=== PATIENT | female | born 1960 | race Caucasian/White ===

== ENCOUNTER 2023-07-24 10:25 | Outpatient (OUT) | payer OTHER, SELFPAY ==
--- NOTE | 2023-07-24 10:26 | MM_ITS ---
Patient Name GURMEET ALMONTE MR# Age Sex Date Time [id number] F 07/24/2023 10:[address] Of [address] LOVE SANTANA RADIOLOGY REPORT PROCEDURE: MM TOMOSYNTHESIS SCREENING BI COMPARISON: MG MAMM SCREEN 3D ERA CAD, 07/18/2022. MG MAMM SCREEN 3D ERA CAD, 06/15/2021. MG MAMM SCREEN ERA W CAD, 04/26/2020. MG MAMM ERA SCRN W CAD DIG, 09/14/2013. INDICATIONS: Screening Calculator Name NCI Breast Cancer Risk Assessment Tool 5 Year Breast Cancer Risk 1.60% Lifetime Breast Cancer Risk 6.60% Personal Breast Cancer No Personal Ovarian Cancer No Treatments radiation therapy Family Cancers Mother with lung cancer at age 48. LOCATION: [facility] BREAST COMPOSITION: Scattered areas fibroglandular density. FINDINGS: DIAGNOSTIC CATEGORY 2--BENIGN FINDING: RIGHT BREAST: No significant suspicious finding. This exam includes additional mammographic views for implant evaluation and shows no visible implant abnormality. No significant change has occurred. LEFT BREAST: No significant suspicious finding. This exam includes additional mammographic views for implant evaluation and shows no visible implant abnormality. No significant change has occurred. RECOMMENDATIONS: ROUTINE MAMMOGRAM AND CLINICAL EVALUATION IN 12 MONTHS. PLEASE NOTE: A NORMAL MAMMOGRAM DOES NOT EXCLUDE THE POSSIBILITY OF BREAST CANCER. A CLINICALLY SUSPICIOUS PALPABLE LUMP SHOULD BE BIOPSIED. Dictated by: Mega Kirby M.D. on 07/24/2023 at 13:20 Approved by: Mgea Kirby M.D. on 07/24/2023 at 13:27
--- OUTSIDE RECORDS SUMMARY | 2023-09-03 13:45 | XMS_ITS | CCD ---
Author Name Unknown Address [address] [facility] [address] [place] [address] Organization [facility] Care Team Providers Care Gallery Host Name Role Phone Anatoliy Tamayo DO Una Primary Care Provider Jagjit CLEARY, Shantelle Unavailable Unavailable TIMMIS, DR MOCTEZUMA Admitting Unavailable TIMMIS, DR MOCTEZUMA Attending Unavailable KUNS, DR SHIRLENE Mancera Primary Care Unavailable TIMMIS, DR MOCTEZUMA Admitting Unavailable TIMMIS, DR MOCTEZUMA Attending Unavailable KUNS, DR SHIRLENE Mancera Primary Care Unavailable TIMMIS, DR MOCTEZUMA Consulting Unavailable AGUBOSIM, SATNAM Consulting Unavailable DORKOSKIE, SHANNAN Consulting Unavailable KUNS, DR SHIRLENE Mancera Admitting Unavailable KUNS, DR SHIRLENE Mancera Attending Unavailable KUNS, DR SHIRLENE Mancera Primary Care Unavailable SCALES MOUND, DR SHARONA Lopez Consulting Unavailable KUNS, DR SHIRLENE Mancera Consulting Unavailable TIMMIS, DR MOCTEZUMA Admitting Unavailable TIMMIS, DR MOCTEZUMA Attending Unavailable KUNS, DR SHIRLENE Mancera Primary Care Unavailable TIMMIS, DR MOCTEZUMA Consulting Unavailable Furlong DOAnatoliy Una Primary Care Provider Jagjit CLEARY, Shantelle Unavailable Unavailable FURLONG, ANATOLIY UNA Primary Care Unavailab le SHAWN, KELVIN Referring Unavailable SHAWN, KELVIN Attending Unavailable FURLONG, ANATOLIY UNA Primary Care Unavailab le SHAWN, KELVIN Referring Unavailable FURLONG, ANATOLIY UNA Primary Care Unavailab le SHAWN, KELVIN Attending Unavailable FURLONG, ANATOLIY UNA Primary Care Unavailab le SHAWN, KELVIN Referring Unavailable SHAWN, KELVIN Attending Unavailable FURLONG, ANATOLIY UNA Primary Care Unavailab le SHAWN, KELVIN Referring Unavailable FURLONG, ANATOLIY UNA Primary Care Unavailab le SHAWN, KELVIN Attending Unavailable SHAWN, KELVIN Referring Unavailable FURLONG, ANATOLIY UNA Primary Care Unavailab ramesh KELVIN DE LA FUENTE Attending Unavailable FRANTZLONG, ANATOLIY NEELY Primary Care Unavailab ramesh SHAWN, KELVIN Referring Unavailable FRANTZLONG, ANATOLIY UNA Primary Care Unavailab le SHAWN, KELVIN Referring Unavailable FRANTZLONG, ANATOLIY UNA Primary Care Unavailab le SHAWN, KELVIN Referring Unavailable FRANTZLONG, ANATOLIY NEELY Primary Care Unavailab le SHAWN, KELVIN Referring Unavailable FRANTZLONG, ANATOLIY UNA Primary Care Unavailab KIM Islas Attending Unavailabl marcos DE LA FUENTE, KELVIN Referring Unavailable JAZMINE JOSE ELIAS Jono Attending Unavailable Allergies Allergy Classification Reported Allergen(s) Allergy Type Date of Onset Reaction(s) Facility (20 sources) moxifloxacin; Translations: [MOXIFLOXACIN] Drug Allergy 2 Hives, Angioedema [facility] (2 sources) moxifloxacin Drug Allergy [facility] Repository Medications Completed/Discontinued Medications Medication Drug Class(es) Dates Sig (Normalized) Sig (Original) acetaminophen 325 mg / butalbital 50 mg / caffeine 40 mg / codeine phosphate 30 mg oral capsule (20 sources) Opioid Agonist, Barbiturate, Central Nervous System Stimulant, Methylxanthine take 1 capsule by mouth twice daily Ttizkdjlwk-Knf-Co etaminop-Caf 03-489-02-30 mg per capsule butalbital 50 mg-acetaminophen 325 mg-caffeine 40 mg-codeine 30 mg cap take 1 capsule by mouth twice a day 0 Active Comment on above: butalbital 50 mg-jersey taminophen 325 mg-caffeine 40 mg-codeine 30 mg cap take 1 capsule by mouth twice a day acetaminophen 21.7 mg/ml / HYDROcodone bitartrate 0.5 mg/ml oral solution (17 sources) Opioid Agonist Start: 04-24-2022 End: 08-28-2022 take 10 mL by mouth every six hours as needed for pain HYDROcodone-acetaminophen (HYCET) 7.5-325 mg/15 mL oral liquid Indications: Larynx cancer (HCC) Take 10 mL by mouth every 6 hours as needed for pain. May alternate with anti-inflammatory (motrin, alleve, etc). Take with stool softener to avoid constipation. 280 mL 0 05/31/2022 08/28/2022 Discontinued (Discontinued by Patient) Comment on above: Take 10 mL by mouth every 6 hours as needed for pain. May alternate with anti-inflammatory (motrin, alleve, etc). Take with stool softener to avoid constipation. cholecalciferol 0.05 mg oral capsule (20 sources) Vitamin D take 1 capsule by mouth once daily Cholecalciferol, Vitamin D3, 50 mcg (2,000 unit) cap Vitamin D3 50 mcg (2,000 unit) capsule take 1 capsule by mouth once daily 0 Active Comment on above: Vitamin D3 50 mcg (2 ,000 unit) capsule take 1 capsule by mouth once daily cyclobenzaprine hydrochloride 10 mg oral tablet (20 sources) Muscle Relaxant Start: 01-15-2022 take 1 tablet by mouth once daily at bedtime cyclobenzaprine (FLEXERIL) 10 mg tablet Take 10 mg by mouth daily at bedtime. 0 01/15/2022 Active Comment on above: Take 10 mg by mouth daily at bedtime. diphenhydrAMINE 12.5 mg/5 mL lidocaine visc 2% MAALOX 200-200-20 mg/5 mL oral liquid 1:1:1 (CPD) (18 sources) Start: 05-03-2022 End: 05-06-2023 diphenhydrAMINE 12.5 mg/5 mL lidocaine visc 2% MAALOX 200-200-20 mg/5 mL oral liquid 1:1:1 (CPD) Swish and swallow 5 to 10 mL (allowing to coat the back of the throat) 5 to 6 times a day as needed for discomfort including before meals and before bedtime 360 mL 2 05/03/2022 05/06/2023 Discontinued (Course of therapy completed) Start: 05-03-2022 End: 05-03-2022 diphenhydrAMINE 12.5 mg/5 mL lidocaine visc 2% MAALOX 200-200-20 mg/5 mL oral liquid 1:1:1 (CPD) Swish and swallow 5 to 10 mL (allowing to coat the back of the throat) 5 to 6 times a day as needed for discomfort including before meals and before bedtime 360 mL 2 05/03/2022 05/03/2022 Discontinued Start: 05-03-2022 diphenhydrAMIN E 12.5 mg/5 mL lidocaine visc 2% MAALOX 200-200-20 mg/5 mL oral liquid 1:1:1 (CPD) Swish and swallow 5 to 10 mL (allowing to coat the back of the throat) 5 to 6 times a day as needed for discomfort including before meals and before bedtime 360 mL 2 05/03/2022 Active Start: 04-25-2022 End: 05-03-2022 diphenhydrAMINE 12.5 mg/5 mL lidocaine visc 2% MAALOX 200-200-20 mg/5 mL oral liquid 1:1:1 (CPD) Swish and swallow 5 to 10 mL (allowing to coat the back of the throat) 5 to 6 times a day as needed for discomfort including before meals and before bedtime 360 mL 1 04/25/2022 05/03/2022 Discontinued Start: 04-25-2022 diphenhydrAMIN E 12.5 mg/5 mL lidocaine visc 2% MAALOX 200-200-20 mg/5 mL oral liquid 1:1:1 (CPD) Swish and swallow 5 to 10ml 5-6 times a day as needed for discomfort including before meals and before bedtime (allowing to coat the back of the throat) 360 mL 1 04/25/2022 Active Comment on above: Swish and swallow 5 to 10ml 5-6 times a day as needed for discomfort including before meals and before bedtime (allowing to coat the back of the throat) Swish and swallow 5 to 10 mL (allowing to coat the back of the throat) 5 to 6 times a day as needed for discomfort including before meals and before bedtime qtjhkjvykhYNLUF-gzuflv-hszyq pam (BMX 1:1:1) 1:1:1 liqd (2 sources) Start: 04-19-2022 take 10 mL by mouth every six hours as needed rplxdwcgcrAADUC-qvnhsi-jhfixopdg (BMX 1:1:1) 1:1:1 liqd Take 10 mL by mouth every 6 hours as needed. 180 mL 2 04/19/2022 Active Comment on above: Take 10 mL by mouth every 6 hours as needed. 168 hr estradiol 0.15258 mg/ hr transdermal system (20 sources) Estrogen estradiol (CLIMA RA) 0.05 mg/24 hr estradiol 0.05 mg/24 hr weekly transdermal patch apply 1 patch every week as directed 0 Active Comment on above: estradiol 0.05 mg/24 hr weekly transdermal patch apply 1 patch every week as directed famotidine 20 mg oral tablet (20 sources) Histamine-2 Receptor Antagonist Start: 01-23-2022 End: 06-19-2022 take 1 tablet by mouth once daily at bedtime famotidine (PEPCID) 20 mg tablet Take 20 mg by mouth daily at bedtime. 0 01/23/2022 06/19/2022 Discontinued (Discontinued by another Health Care Provider) Comment on above: Take 20 mg by mouth daily at bedtime. FLUoxetine 20 mg oral capsule (20 sources) Serotonin Reuptake Inhibitor take 1 capsule by mouth once daily FLUoxetine (PROZAC) 20 mg capsule fluoxetine 20 mg capsule take 1 capsule by mouth once daily 0 Active Comment on above: fluoxetine 20 mg cap shilpi take 1 capsule by mouth once daily fluticasone propionate 0.05 mg/actuat metered dose nasal spray (20 sources) Corticosteroid take 1 spray(s) nasal route once daily fluticasone (FLONASE) 50 mcg/actuation nasal spray fluticasone propionate 50 mcg/actuation nasal spray,suspension USE 1 SPRAY NASALLY DAILY 0 Active Comment on above: fluticasone propiona te 50 mcg/actuation nasal spray,suspension USE 1 SPRAY NASALLY DAILY iv contrast (will be provided with radiology test) (1 source) Start: 02-02-2022 End: 02-02-2022 inject 1 dose intravenously once, then inject 1 dose intravenously once iv contrast (will be provided with radiology test) Indications: Larynx cancer (HCC) Inject 1 Each intravenously one time only for [address] Neck W IVCON No IV access, insert saline lock prior to the sedation, infusion, injection for imaging exam. Discontinue saline lock post exam. If Pt. has a central line or IVAD, may access for administration according to line specific nursing protocol. Once exam is complete flush line and de-access according to line specific nursing protocol in the CT contrast administration guidelines link. 1 Each 0 02/02/2022 02/02/2022 Comment on above: Inject 1 Each intrav enously one time only for [address] Neck W IVCON No IV access, insert saline lock prior to the sedation, infusion, injection for imaging exam. Discontinue saline lock post exam. If Pt. has a central line or IVAD, may access for administration according to line specific nursing protocol. Once exam is complete flush line and de-access according to line specific nursing protocol in the CT contrast administration guidelines link. LORazepam 0.5 mg oral tablet (17 sources) Benzodiazepine End: 06-19-2022 take 1 tablet by mouth at bedtime as needed LORazepam (ATIVAN) 0.5 mg Take 1 tablet by mouth at bedtime as needed. 0 06/19/2022 Discontinued (Course of therapy completed) Comment on above: Take 1 tablet by farida th at bedtime as needed. meclizine hydrochloride 25 mg oral tablet (20 sources) Antiemetic take 1 tablet by mouth once daily meclizine (ANTIVERT) 25 mg tab meclizine 25 mg tablet take 1 tablet by mouth once daily if needed 0 Active Comment on above: meclizine 25 mg tabl et take 1 tablet by mouth once daily if needed omeprazole 40 mg delayed release oral capsule (20 sources) Proton Pump Inhibitor Start: 01-23-2022 take 1 capsule by mouth in the morning omeprazole (PRILOSEC) 40 mg capsule take 1 capsule by mouth IN THE MORNING 30 MINUTES TO 1 HOUR PRIOR TO EATING breakfast 0 01/23/2022 Active Comment on above: take 1 capsule by mo [facility] IN THE MORNING 30 MINUTES TO 1 HOUR PRIOR TO EATING breakfast prochlorperazine 10 mg oral tablet (4 sources) Phenothiazine Start: 06-11-2022 End: 05-06-2023 take 1 tablet by mouth at mealtime as needed prochlorperazine (COMPAZINE) 10 mg tablet Take 1 tablet by mouth as directed. 30 minutes prior to meals as needed 30 tablet 0 06/11/2022 05/06/2023 Discontinued (Course of therapy completed) Comment on above: Take 1 tablet by farida th as directed. 30 minutes prior to meals as needed sennosides, half-way 1.76 mg/ml oral solution (13 sources) Start: 05-03-2022 End: 05-06-2023 take 10 mL by mouth once daily at bedtime for diarrhea sennosides (SENNA) 8.8 mg/5 mL oral liquid Take 10 mL by mouth daily at bedtime. Use while taking pain medication and hold for loose bowel movements/diarrhea. 237 mL 1 05/03/2022 05/06/2023 Discontinued (Course of therapy completed) Comment on above: Take 10 mL by mouth daily at bedtime. Use while taking pain medication and hold for loose bowel movements/diarrhea. spironolactone 25 mg oral tablet (20 sources) Aldosterone Antagonist spironola ctone (ALDACTONE) 25 mg tablet spironolactone 25 mg tablet TAKE 1 TABLET BY MOUTH ONE DAILY 0 Active Comment on above: spironolactone 25 mg tablet TAKE 1 TABLET BY MOUTH ONE DAILY Problems Active Problems Problem Classification Problem Date Documented Da te Episodic/Chronic Cancer of head and neck (20 sources) Malignant tumor of larynx; Translations: [Malignant neoplasm of larynx, unspecified] Onset: 01-26-2022 Chronic Other screening for suspected conditions (not mental disorders or infectious disease) (1 source) Encounter for screening mammogram for malignant neoplasm of breast; Translations: [ENC SCR MAMMO MALIG NEOPLASM BREAST] Onset: 07-23-2022 Episodic Residual codes; unclassified (1 source) Family history of malignant neoplasm of trachea, bronchus and lung; Translations: [FAM HX MALIG NEOPLSM TRACH BRON LNG] Onset: 07-23-2022 Episodic Thyroid disorders (4 sources) Disorder of thyroid, unspecified; Translations: [DISORDER OF THYROID UNSPECIFIED] Onset: 07-18-2022 Episodic Past or Other Problems Problem Classification Problem Date Documented Da te Episodic/Chronic Other aftercare (1 source) Other rodent exterminator (current) drug therapy; Translations: [OTH PRECIPITATOR SUPERVISOR CURRENT DRUG THERAPY] Onset: 01-26-2022 Episodic Other upper respiratory disease (4 sources) Other diseases of vocal cords; Translations: [OTHER DISEASES OF VOCAL CORDS] Onset: 01-17-2022 Episodic Other upper respiratory disease (1 source) Dysphonia; Translations: [DYSPHONIA] Onset: 01-26-2022 Episodic Screening and history of mental health and substance abuse codes (1 source) Personal history of nicotine dependence; Translations: [PERSONAL HISTORY OF NICOTINE DEPEND] Onset: 01-26-2022 Episodic Results Test Name Value Interpretation Reference Range Sherley Angel 05-07-2023 CNS Social Work ([facility]) MANUELA NULL ([id number]) 1960 F Date Time Provider Department 05/07/23 SHANTELLE DANIELSON During your visit today, we recorded the following information about you: Shantelle Danielson LSW 05/07/2023 11:27 AM Signed Patient Declined Social Work Assessment Patient appears on the [employer] Report for a NCN score of 8. Questionnaire was completed during her follow up visit on 05/06/23. SW referral was declined. AGUSTIN Angel-S Allergies As of Date: 05/07/2023 Noted Allergy Reaction MOXIFLOXACIN 02/02/2022 4 - Hives 18 - Angioedema Date Reviewed: 05/06/2023 Reviewed by: Maranda Estrada, RN - Fully Assessed Prescriptions as of 05/07/2023 - omeprazole (PRILOSEC) 40 mg capsule take 1 capsule by mouth IN THE MORNING 30 MINUTES TO 1 HOUR PRIOR TO EATING breakfast - cyclobenzaprine (FLEXERIL) 10 mg tablet Take 10 mg by mouth daily at bedtime. - Cholecalciferol, Vitamin D3, 50 mcg (2,000 unit) cap Vitamin D3 50 mcg (2,000 unit) capsule take 1 capsule by mouth once daily - estradiol (CLIMARA) 0.05 mg/24 hr estradiol 0.05 mg/24 hr weekly transdermal patch apply 1 patch every week as directed - FLUoxetine (PROZAC) 20 mg capsule fluoxetine 20 mg capsule take 1 capsule by mouth once daily - fluticasone (FLONASE) 50 mcg/actuation nasal spray fluticasone propionate 50 mcg/actuation nasal spray,suspension USE 1 SPRAY NASALLY DAILY - meclizine (ANTIVERT) 25 mg tab meclizine 25 mg tablet take 1 tablet by mouth once daily if needed - spironolactone (ALDACTONE) 25 mg tablet spironolactone 25 mg tablet TAKE 1 TABLET BY MOUTH ONE DAILY - Kzyhrsuucn-Omq-Qnkomymjak-Caf 56-062-48-30 mg per capsule butalbital 50 mg-acetaminophen 325 mg-caffeine 40 mg-codeine 30 mg cap take 1 capsule by mouth twice a day Problem List As Of Date 05/07/2023 Noted Resolved Cancer of larynx (HCC) [C32.9] 04/26/2022 Encounter Status:Closed by SHANTELLE DANIELSON on 05/07/23 [facility] CNOVon 05-06-2023 CNOV Office Visit (RADTSA ) MANUELA NULL ([id number]) 1960 F Date Time Provider Department 05/06/23 10:00 AM KELVIN DE LA FUENTE During your visit today, we recorded the following information about you: Temperature Pulse Respiration Blood pressure 97.4 degrees 90/minute 18/minute 108/72 Weight 63.5 kg Kelvin De La Fuente MD 05/06/2023 11:04 AM Signed Radiation Oncology - Follow Up Note PATIENT NAME: Manuela Null PATIENT DIAGNOSIS/PATIENT IDENTIFICATION: Ms. 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 INTERVAL HISTORY/ROS: Ms. Null returns to clinic today for routine follow-up approximately one year after the completion of her radiation treatments and nine months since her last visit on 08/16/2022. In the interim, she has been following regularly with Dr. Lucero and head and neck examination from earlier today was without concerns. Today she denies any pain/discomfort in the neck and is able to swallow well except for certain dry foods like crackers. She has good use of her voice but does get hoarse with extended use which is stable. She endorses dry mouth and intact taste and denies any sores or ulcers in the mouth. Her skin is intact without irritation or breakdown and she uses a moisturizer daily and notes no new lumps or bumps in the neck. She describes fatigue which has been stable since the end of radiation with good appetite and hydration and stable weight. She has chronic joint pains and headaches and has recently been having issues with her vision but otherwise denies any recent fevers, chills, shortness of breath, chest pain/palpitations, abdominal pain, nausea, vomiting, change in bowel/urinary habits, difficulty with gait/balance, recent falls, etc. The remainder of the review of systems was performed and was otherwise noncontributory. ALLERGIES ALLERGIES Allergen Reactions Moxifloxacin Hives, Angioedema MEDICATIONS: Current Outpatient Medications: prochlorperazine (COMPAZINE) 10 mg tablet sennosides (SENNA) 8.8 mg/5 mL oral liquid omeprazole (PRILOSEC) 40 mg capsule cyclobenzaprine (FLEXERIL) 10 mg tablet Cholecalciferol, Vitamin D3, 50 mcg (2,000 unit) cap estradiol (CLIMARA) 0.05 mg/24 hr FLUoxetine (PROZAC) 20 mg capsule meclizine (ANTIVERT) 25 mg tab spironolactone (ALDACTONE) 25 mg tablet Zyvbsmylft-Tfa-Lgjusfqupt-Caf 38-327-01-30 mg per capsule diphenhydrAMINE 12.5 mg/5 mL lidocaine visc 2% MAALOX 200-200-20 mg/5 mL oral liquid 1:1:1 (CPD) fluticasone (FLONASE) 50 mcg/actuation nasal spray PHYSICAL EXAM: GENERAL: middle-aged woman sitting in chair in no acute distress. VITALS: BP 108/72 Pulse 90 Temp 97.4 Resp 18 Wt 140 lb (63.5kg) SpO2 98% KPS: 90 HEENT: NC/AT, anicteric sclera HEART: S1S2 LUNGS: non-labored breathing ABDOMEN: soft MUSCULOSKELETAL: no peripheral edema, moves all extremities. NEURO: no focal deficit; AANDO X3. ASSESSMENT AND PLAN: Ms. 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 Ms. Null is doing well clinically approximately one year after the completion of her radiation treatments to the larynx with resolution of the acute toxicities of treatment and stable voice. She is without clinical concern for disease after head and neck examination by Dr. Lucero earlier today. She has had stable/chronic fatigue since the end of treatment and will have her thyroid function checked with her next visit with her PCP. Patient was also reassured that her eye recent issues were in no way related to her radiation to the larynx. She will continue her surveillance with Dr. Lucero as scheduled and I will plan to see her back in approximately one year. The patient is aware to contact the clinic in the interim should any questions or concerns arise. Thank you for allowing us to participate in the care of this patient. Signed by: Kelvin De La Fuente MD I spent a total of 20 minutes on the date of the service which included preparing to see the patient, [id number] patient care, and counseling and educating the patient/family/caregiver. This document has been created with the use of voice recognition technology. It may contain inaccuracies, misspellings, inaccurate syntax or inappropriate word context that are a result of the inadequacies/shortcomings of said technology/software. Referring Provider: KELVIN DE LA FUENTE [[id number]] Allergies As of Date: 05/06/2023 Noted Allergy Reaction MOXIFLOXACIN 02/02/2022 4 - Hives 18 - Angioedema Date Reviewed: 05/06/2023 Reviewed by: Maranda Estrada RN - Fully Assessed Reason for Visit: P (more content not included)... [facility] MANUELA NULL ([id number]) 1960 F Date Time Provider Department 01/16/23 KELVIN DE LA FUENTE During your visit today, we recorded the following information about you: Marla Estrada [facility] 01/16/2023 11:04 AM Signed Records faxed to [facility] per patient request. Allergies As of Date: 01/16/2023 Noted Allergy Reaction MOXIFLOXACIN 02/02/2022 4 - Hives 18 - Angioedema Date Reviewed: 08/16/2022 Reviewed by: Leatha Montes - Fully Assessed Reason for Visit: Records faxed/Disability [Other] Prescriptions as of 01/16/2023 - prochlorperazine (COMPAZINE) 10 mg tablet Take 1 tablet by mouth as directed. 30 minutes prior to meals as needed - sennosides (SENNA) 8.8 mg/5 mL oral liquid Take 10 mL by mouth daily at bedtime. Use while taking pain medication and hold for loose bowel movements/diarrhea. - diphenhydrAMINE 12.5 mg/5 mL lidocaine visc 2% MAALOX 200-200-20 mg/5 mL oral liquid 1:1:1 (CPD) Swish and swallow 5 to 10 mL (allowing to coat the back of the throat) 5 to 6 times a day as needed for discomfort including before meals and before bedtime - omeprazole (PRILOSEC) 40 mg capsule take 1 capsule by mouth IN THE MORNING 30 MINUTES TO 1 HOUR PRIOR TO EATING breakfast - cyclobenzaprine (FLEXERIL) 10 mg tablet Take 10 mg by mouth daily at bedtime. - Cholecalciferol, Vitamin D3, 50 mcg (2,000 unit) cap Vitamin D3 50 mcg (2,000 unit) capsule take 1 capsule by mouth once daily - estradiol (CLIMARA) 0.05 mg/24 hr estradiol 0.05 mg/24 hr weekly transdermal patch apply 1 patch every week as directed - FLUoxetine (PROZAC) 20 mg capsule fluoxetine 20 mg capsule take 1 capsule by mouth once daily - fluticasone (FLONASE) 50 mcg/actuation nasal spray fluticasone propionate 50 mcg/actuation nasal spray,suspension USE 1 SPRAY NASALLY DAILY - meclizine (ANTIVERT) 25 mg tab meclizine 25 mg tablet take 1 tablet by mouth once daily if needed - spironolactone (ALDACTONE) 25 mg tablet spironolactone 25 mg tablet TAKE 1 TABLET BY MOUTH ONE DAILY - Tjrhmxgsss-Iyv-Njpihryurp-Caf 44-132-72-30 mg per capsule butalbital 50 mg-acetaminophen 325 mg-caffeine 40 mg-codeine 30 mg cap take 1 capsule by mouth twice a day Problem List As Of Date 01/16/2023 Noted Resolved Cancer of larynx (HCC) [C32.9] 04/26/2022 Encounter Status:Closed by TAYLOR CARABALLO MARLA Bianca on 01/16/23 [facility] CNOVon 08-16-2022 CNOV Office Visit (RADTSA ) MANUELA NULL ([id number]) 1960 F Date Time Provider Department 08/16/22 11:00 AM KELVIN DE LA FUENTE During your visit today, we recorded the following information about you: Temperature Pulse Respiration Blood pressure 97.2 degrees 102/minute 16/minute 119/72 Weight 63.9 kg Kelvin De La Fuente MD 08/29/2022 2:49 AM Addendum Radiation Oncology - Follow Up Note PATIENT NAME: Manuela Null PATIENT DIAGNOSIS/PATIENT IDENTIFICATION: Ms. 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 INTERVAL HISTORY/ROS: Ms. Null returns to clinic today for routine follow-up approximately three months after the completion of her radiation treatments and two months since her last visit on . In the interim, she notes substantial improvement in the resolution of her throat pain now only notes small area of discomfort when she chews. Her skin has recovered and is intact with no breakdown or no new lumps or bumps. She does note mild itching and uses a moisturizer daily. She reports intact range of motion of the neck. She notes improvement in her voice and feels it is almost near baseline and does not fatigue easily. She denies any dry mouth or altered taste or any sores or ulcers in the mouth. She reports improvement in her fatigue and has returned to work part-time. She endorses good appetite hydration and stable weight. She denies any choking sensation with swallowing. She otherwise denies any recent fevers, chills, headaches, difficulty with speech/swallowing, shortness of breath, chest pain/palpitations, abdominal pain, nausea, vomiting, change in bowel/urinary habits, difficulty with gait/balance, recent falls, etc. The remainder of the review of systems was performed and was otherwise noncontributory. ALLERGIES ALLERGIES Allergen Reactions Moxifloxacin Hives, Angioedema MEDICATIONS: Current Outpatient Medications: prochlorperazine (COMPAZINE) 10 mg tablet sennosides (SENNA) 8.8 mg/5 mL oral liquid diphenhydrAMINE 12.5 mg/5 mL lidocaine visc 2% MAALOX 200-200-20 mg/5 mL oral liquid 1:1:1 (CPD) omeprazole (PRILOSEC) 40 mg capsule cyclobenzaprine (FLEXERIL) 10 mg tablet Cholecalciferol, Vitamin D3, 50 mcg (2,000 unit) cap estradiol (CLIMARA) 0.05 mg/24 hr FLUoxetine (PROZAC) 20 mg capsule fluticasone (FLONASE) 50 mcg/actuation nasal spray meclizine (ANTIVERT) 25 mg tab spironolactone (ALDACTONE) 25 mg tablet Opykuhafib-Wje-Egmqluqquc-Caf 39-375-57-30 mg per capsule PHYSICAL EXAM: GENERAL: middle-aged woman sitting in chair in no acute distress. VITALS: BP 119/72 Pulse 102 Temp (Src) 97.2 (Temporal) Resp 16 Wt 140 lb 12.8 oz (63.9kg) SpO2 98% KPS: 90 HEENT: NC/AT, anicteric sclera HEART: S1S2 LUNGS: non-labored breathing ABDOMEN: soft MUSCULOSKELETAL: no peripheral edema, moves all extremities. NEURO: no focal deficit; AANDO X3. ASSESSMENT AND PLAN: Ms. 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 Ms. Null is doing well clinically approximately 3 months out from the completion of her radiation treatments to the larynx with resolution of much of the acute toxicities of therapy. She reports near full recovery of her voice with resolution of her throat pain and skin irritation. She is scheduled to meet with Dr. Lucero next week to proceed to laryngoscopic surveillance and I will plan to see her back in approximately 9 months. The patient is aware to contact the clinic in the interim should any questions or concerns arise. Thank you for allowing us to participate in the care of this patient. Signed by: Kelvin De La Fuente MD I spent a total of 20 minutes on the date of the service which included preparing to see the patient, [id number] patient care, and counseling and educating the patient/family/caregiver. This document has been created with the use of voice recognition technology. It may contain inaccuracies, misspellings, inaccurate syntax or inappropriate word context that are a result of the inadequacies/shortcomings of said technology/software. Referring Provider: KELVIN DE LA FUENTE [[id number]] Allergies As of Date: 08/16/2022 Noted Allergy Reaction MOXIFLOXACIN 02/02/2022 4 - Hives 18 - Angioedema Date Reviewed: 08/16/2022 Reviewed by: Leatha Montes - Fully Assessed Reason for Visit: Laryngeal Cancer [558] Primary Visit Diagnosis:Larynx cancer (HCC) [C32.9] Prescriptions as of 08/29/2022 - prochlorperazine (COMPAZINE) 10 mg tablet Take 1 tablet by mouth as directed. 30 minutes prior to meals as needed - sennosides (SENNA) (more content not included)... Normal [facility] FREE T4on 07-18-2022 Free T4 [Mass/Vol] 0.79 ng/dL Normal 0.76-1.46 The [facility] Comment on above: Performed By: #### F T4 #### [facility] [address] [place] [address] Dr. Aman Dover MG MAMM SCREEN 3D ERA CADon 07-18-2022 MG MAMM SCREEN 3D ERA CAD Patient: MANUELA NULL Exam Date: 07/18/2022 : 1960 Gender:F Ordering : DR SHIRLENE FINN Admission #: [id number] Family : Order #: [id number] CLICK HERE TO VIEW EXAM RADIOLOGY REPORT PROCEDURE: MAMMOGRAM SCREENING 3D BILATERAL CAD COMPARISON: MG MAMM SCREEN ERA W CAD, 04/26/2020. MG MAMM SCREEN 3D ERA CAD, 06/15/2021. INDICATIONS: Screening mammography Calculator Name NCI Breast Cancer Risk Assessment Tool 5 Year Breast Cancer Risk 1.50% Lifetime Breast Cancer Risk 6.80% Personal Breast Cancer No Personal Ovarian Cancer No Treatments radiation therapy Family Cancers Mother with lung cancer at age 48. LOCATION: [facility] BREAST COMPOSITION: Scattered areas fibroglandular density. FINDINGS: DIAGNOSTIC CATEGORY 2--BENIGN FINDING. NO CHANGE FROM COMPARISON. This exam includes additional mammographic views for implant evaluation and shows no visible implant abnormality. Scattered benign-appearing calcifications are present. Scattered benign-appearing lymph nodes are present. RIGHT BREAST: No significant suspicious finding. LEFT BREAST: No significant suspicious finding. RECOMMENDATIONS: ROUTINE MAMMOGRAM AND CLINICAL EVALUATION IN 12 MONTHS. PLEASE NOTE: A NORMAL MAMMOGRAM DOES NOT EXCLUDE THE POSSIBILITY OF BREAST CANCER. A CLINICALLY SUSPICIOUS PALPABLE LUMP SHOULD BE BIOPSIED. Dictated by: Sharona Catalan MD on 07/18/2022 at 13:09 Approved by: Sharona Catalan MD on 07/18/2022 at 13:10 Normal [facility] TSHon 07-18-2022 TSH 1.228 uIU/mL Normal 0.358-3.740 [facility] Comment on above: Performed By: #### T #### [facility] [address] [place] [address] Dr. Aman Dover CNOVon 06-11-2022 CNOV Office Visit (RADTSA ) SUZYMANUELA BURGOS ([id number]) 1960 F Date Time Provider Department 06/11/22 10:00 AM KELVIN DE LA FUENTE During your visit today, we recorded the following information about you: Temperature Pulse Respiration Blood pressure 97.3 degrees 91/minute 16/minute 112/50 Weight 59.9 kg Kelvin De La Fuente MD 06/20/2022 12:26 AM Addendum Radiation Oncology - Follow Up Note PATIENT NAME: Manuela Null PATIENT DIAGNOSIS/PATIENT IDENTIFICATION: Ms. 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 Ms. Null returns to clinic today for routine follow-up approximately one month after the completion of her radiation treatments. In the interim, she has been recovering from the acute toxicities of treatment. Today she notes that her voice is slowly coming back this past week and she still notes pain at 7/10 with swallowing with a gagging/vomiting reflex. She denies any choking sensation and consumes a soft diet including 4 cans of boost a day. She reports having lost 2 pounds since completion of treatment and continues to hydrate with over 48 ounces a day. She uses the baking soda rinses as well as the BMX 4-5 times a day. She denies any sores or ulcers in the mouth or any dry mouth and notes slightly altered taste. Her skin has healed and notes no current breakdown and continues to use a moisturizer. She reports improving energy as she has started to return to work part-time. We will try a course of Compazine to help with her nausea and plan for a swallow study. She will follow with Dr. Lucero as scheduled for laryngoscopic evaluation and I will plan to see her back in approximately 2 months. The patient is aware to contact the clinic in the interim should any questions or concerns arise. Thank you for allowing us to participate in the care of this patient. Signed by: Kelvin De La Fuente MD This document has been created with the use of voice recognition technology. It may contain inaccuracies, misspellings, inaccurate syntax or inappropriate word context that are a result of the inadequacies/shortcomings of said technology/software. Referring Provider: KELVIN DE LA FUENTE [[id number]] Allergies As of Date: 06/11/2022 Noted Allergy Reaction MOXIFLOXACIN 02/02/2022 4 - Hives 18 - Angioedema Date Reviewed: 05/14/2022 Reviewed by: Maranda Estrada RN - Fully Assessed Reason for Visit: Head and Neck Cancer [551] Primary Visit Diagnosis:Larynx cancer (HCC) [C32.9] Order(s):XR MODIFIED BARIUM SWALLOW W SPEECH THERAPY [[id number]] Order #: [id number] FUTURE prochlorperazine (COMPAZINE) 10 mg tabletTake 1 tablet by mouth as directed. 30 minutes prior to meals as neededDisp: 30 tabletRfl: 0 Prescriptions as of 06/20/2022 - prochlorperazine (COMPAZINE) 10 mg tablet Take 1 tablet by mouth as directed. 30 minutes prior to meals as needed - HYDROcodone-acetaminophen (HYCET) 7.5-325 mg/15 mL oral liquid Take 10 mL by mouth every 6 hours as needed for pain. May alternate with anti-inflammatory (motrin, alleve, etc). Take with stool softener to avoid constipation. - sennosides (SENNA) 8.8 mg/5 mL oral liquid Take 10 mL by mouth daily at bedtime. Use while taking pain medication and hold for loose bowel movements/diarrhea. - diphenhydrAMINE 12.5 mg/5 mL lidocaine visc 2% MAALOX 200-200-20 mg/5 mL oral liquid 1:1:1 (CPD) Swish and swallow 5 to 10 mL (allowing to coat the back of the throat) 5 to 6 times a day as needed for discomfort including before meals and before bedtime - omeprazole (PRILOSEC) 40 mg capsule take 1 capsule by mouth IN THE MORNING 30 MINUTES TO 1 HOUR PRIOR TO EATING breakfast - cyclobenzaprine (FLEXERIL) 10 mg tablet Take 10 mg by mouth daily at bedtime. - Cholecalciferol, Vitamin D3, 50 mcg (2,000 unit) cap Vitamin D3 50 mcg (2,000 unit) capsule take 1 capsule by mouth once daily - estradiol (CLIMARA) 0.05 mg/24 hr estradiol 0.05 mg/24 hr weekly transdermal patch apply 1 patch every week as directed - FLUoxetine (PROZAC) 20 mg capsule fluoxetine 20 mg capsule take 1 capsule by mouth once daily - fluticasone (FLONASE) 50 mcg/actuation nasal spray fluticasone propionate 50 mcg/actuation nasal spray,suspension USE 1 SPRAY NASALLY DAILY - meclizine (ANTIVERT) 25 mg tab meclizine 25 mg tablet take 1 tablet by mouth once daily if needed - spironolactone (ALDACTONE) 25 mg tablet spironolactone 25 mg tablet TAKE 1 TABLET BY MOUTH ONE DAILY - Wdazkoninv-Nco-Dunzwomxgp-Caf 76-867-67-30 mg per capsule butalbital 50 mg-acetaminophen 325 mg-caffeine 40 mg-codeine 30 mg cap take 1 capsule by mouth twice a day Problem List As Of Date 06/11/2022 Noted Resolved Cancer of larynx (HCC) [C32.9] 04/26/2022 Prescriptions ordered (more content not included)... 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 She is also noted some desquamation in the skin and uses a combination of Aquaphor and Neosporin as well as cold compresses. She does endorse dry mouth and altered taste and does use the baking soda rinse several times a day. She denies any sores or ulcers in the mouth consumes a soft diet which includes 2-3 boost a day. She has been receiving IV fluids intermittently which she feels helps. PHYSICAL EXAM: KPS: 90 General Appearance: Alert and oriented. No acute distress. Radiation dermatitis: Moderate Mucositis: Moderate Oral cavity and oropharynx: lips and gums normal, oral and pharyngeal mucosa dry Neck: Normal ROM. No palpable cervical or supraclavicular adenopathy; erythema with breakdown IMAGING/LAB RESULTS: None TOXICITY ASSESSMENT (CTCv4): Dysphagia:grade 2 - Symptomatic and altered eating/swallowing Mucositis: grade 2 - Moderate pain; not interfering with oral intake; modified diet indicated Radiation dermatitis: grade 1 - Faint erythema or dry desquamation Trismus: grade 0 - No symptoms Voice Changes:grade 1 - Mild or intermittent change from normal voice Xerostomia: grade 1 - Symptomatic (dry or thick saliva) without significant dietary alteration; unstimulated saliva flow >2ml/min Fatigue: grade 1 - Fatigue relieved by rest Pain: grade 2 - Moderate pain; limiting instrumental ADL Treatment chart checked: Yes Patient treatment site reviewed and verified:Yes Port films reviewed and current:Yes Medications started: None ASSESSMENT:Clinically stable. Toxicity within expected parameters. The patient has completed radiotherapy and will be seen in follow-up in 3-4 weeks. Acute and delayed side effects reviewed. Kelvin De La Fuente MD Allergies As of Date: 05/14/2022 Noted Allergy Reaction MOXIFLOXACIN 02/02/2022 4 - Hives 18 - Angioedema Date Reviewed: 05/14/2022 Reviewed by: Maranda Estrada RN - Fully Assessed Reason for Visit: Radiotherapy On-treatment Visit [1722] Primary Visit Diagnosis:Larynx cancer (HCC) [C32.9] Prescriptions as of 05/23/2022 - HYDROcodone-acetaminophen (HYCET) 7.5-325 mg/15 mL oral liquid Take 10 mL by mouth every 6 hours as needed for pain. May alternate with anti-inflammatory (motrin, alleve, etc). Take with stool softener to avoid constipation. - sennosides (SENNA) 8.8 mg/5 mL oral liquid Take 10 mL by mouth daily at bedtime. Use while taking pain medication and hold for loose bowel movements/diarrhea. - diphenhydrAMINE 12.5 mg/5 mL lidocaine visc 2% MAALOX 200-200-20 mg/5 mL oral liquid 1:1:1 (CPD) Swish and swallow 5 to 10 mL (allowing to coat the back of the throat) 5 to 6 times a day as needed for discomfort including before meals and before bedtime - LORazepam (ATIVAN) 0.5 mg Take 1 tablet by mouth at bedtime as needed. - omeprazole (PRILOSEC) 40 mg capsule take 1 capsule by mouth IN THE MORNING 30 MINUTES TO 1 HOUR PRIOR TO EATING breakfast - famotidine (PEPCID) 20 mg tablet Take 20 mg by mouth daily at bedtime. - cyclobenzaprine (FLEXERIL) 10 mg tablet Take 10 mg by mouth daily at bedtime. - Cholecalciferol, Vitamin D3, 50 mcg (2,000 unit) cap Vitamin D3 50 mcg (2,000 unit) capsule take 1 capsule by mouth once daily - estradiol (CLIMARA) 0.05 mg/24 hr estradiol 0.05 mg/24 hr weekly transdermal patch apply 1 patch every week as directed - FLUoxetine (PROZAC) 20 mg capsule fluoxetine 20 mg capsule take 1 capsule by mouth once daily - fluticasone (FLONASE) 50 mcg/actuation nasal spray fluticasone propionate 50 mcg/actuation nasal spray,suspension USE 1 SPRAY NASALLY DAILY - meclizine (ANTIVERT) 25 mg tab meclizine 25 mg tablet take 1 tablet by mouth once daily if needed - spironolactone (ALDACTONE) 25 mg tablet spironolactone 25 mg tablet TAKE 1 TABLET BY MOUTH ONE DAILY - Vxxgbwzeja-Vks-Fcnzgzjnbd-Caf 26-474-85-30 mg per capsule butalbital 50 mg-acetaminophen 325 mg-caffeine 40 mg-codeine 30 mg cap take 1 capsule by farida (more content not included)... 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 She controls with combination of BMX and Hycet. She also notes dry mouth and altered taste and has transition to a softer diet including boost and Ensure. She has difficulty with liquids as well and has been receiving intermittent IV fluids. She uses a stool softener. She denies any sores or ulcers in the mouth and does the baking soda rinse 10-15 times a day. She has skin erythema without breakdown and use a moisturizer 3 times a day. Last 5 Encounter Wt Readings: Date: Wt: 05/09/2022 62.2 kg (137 lb 3.2 oz) 05/02/2022 62.2 kg (137 lb 3.2 oz) 04/25/2022 64.4 kg (142 lb) 04/18/2022 64.9 kg (143 lb) 04/09/2022 64.9 kg (143 lb) PHYSICAL EXAM: KPS: 90 General Appearance: Alert and oriented. No acute distress. Radiation dermatitis: Mild Mucositis: Moderate Oral cavity and oropharynx: lips and gums normal, oral and pharyngeal mucosa dry Neck: Normal ROM. No palpable cervical or supraclavicular adenopathy; erythema without breakdown IMAGING/LAB RESULTS: None TOXICITY ASSESSMENT (CTCv4): Dysphagia:grade 2 - Symptomatic and altered eating/swallowing Mucositis: grade 2 - Moderate pain; not interfering with oral intake; modified diet indicated Radiation dermatitis: grade 1 - Faint erythema or dry desquamation Trismus: grade 0 - No symptoms Voice Changes:grade 1 - Mild or intermittent change from normal voice Xerostomia: grade 1 - Symptomatic (dry or thick saliva) without significant dietary alteration; unstimulated saliva flow >2ml/min Fatigue: grade 1 - Fatigue relieved by rest Pain: grade 2 - Moderate pain; limiting instrumental ADL Treatment chart checked: Yes Patient treatment site reviewed and verified:Yes Port films reviewed and current:Yes Medications started: None ASSESSMENT:Clinically stable. Toxicity within expected parameters. Continue radiation treatment as planned. Kelvin De La Fuente MD Allergies As of Date: 05/09/2022 Noted Allergy Reaction MOXIFLOXACIN 02/02/2022 4 - Hives 18 - Angioedema Date Reviewed: 05/09/2022 Reviewed by: Kim Cortes RD - Fully Assessed Reason for Visit: Laryngeal Cancer [558] Primary Visit Diagnosis:Larynx cancer (HCC) [C32.9] Prescriptions as of 05/23/2022 - HYDROcodone-acetaminophen (HYCET) 7.5-325 mg/15 mL oral liquid Take 10 mL by mouth every 6 hours as needed for pain. May alternate with anti-inflammatory (motrin, alleve, etc). Take with stool softener to avoid constipation. - sennosides (SENNA) 8.8 mg/5 mL oral liquid Take 10 mL by mouth daily at bedtime. Use while taking pain medication and hold for loose bowel movements/diarrhea. - diphenhydrAMINE 12.5 mg/5 mL lidocaine visc 2% MAALOX 200-200-20 mg/5 mL oral liquid 1:1:1 (CPD) Swish and swallow 5 to 10 mL (allowing to coat the back of the throat) 5 to 6 times a day as needed for discomfort including before meals and before bedtime - LORazepam (ATIVAN) 0.5 mg Take 1 tablet by mouth at bedtime as needed. - omeprazole (PRILOSEC) 40 mg capsule take 1 capsule by mouth IN THE MORNING 30 MINUTES TO 1 HOUR PRIOR TO EATING breakfast - famotidine (PEPCID) 20 mg tablet Take 20 mg by mouth daily at bedtime. - cyclobenzaprine (FLEXERIL) 10 mg tablet Take 10 mg by mouth daily at bedtime. - Cholecalciferol, Vitamin D3, 50 mcg (2,000 unit) cap Vitamin D3 50 mcg (2,000 unit) capsule take 1 capsule by mouth once daily - estradiol (CLIMARA) 0.05 mg/24 hr estradiol 0.05 mg/24 hr weekly transdermal patch apply 1 patch every week as directed - FLUoxetine (PROZAC) 20 mg capsule fluoxetine 20 mg capsule take 1 capsule by mouth once daily - fluticasone (FLONASE) 50 mcg/actuation nasal spray fluticasone propionate 50 mcg/actuation nasal spray,suspension USE 1 SPRAY NASALLY DAILY - meclizine (ANTIVERT) 25 mg tab meclizine 25 mg tablet take 1 tablet by mouth once daily if needed - spironolactone (ALDACTONE) 25 mg tablet spironolactone 25 mg tablet TAKE 1 TABLET BY MOUTH ONE DAILY - Akncremvsc-Smd-Miontftbft-Caf 30-215-60-30 mg per capsule butalbital 50 mg-acetaminophen 325 mg-caffeine 40 mg-codeine 30 mg cap take 1 capsule by mouth twice a day Prob (more content not included)... Normal [facility] - Chemistry and C hemistry - challengeon 02-02-2022 Creatinine [Mass/Vol] 0.64 mg/dL 0.58 - 0.96 mg /dL [facility] No Panel Informationon 02-02 Estimated Glomerular Filtrat ion Rate 100 mL/min/1.73m >=60 mL/min/1.73m [facility] CBC AUTO DIFFon 01-15-2022 BASO # 0.0 103/ul Normal 0.0-0.[address] [facility] ostal Comment on above: Performed By: #### C BC #### [facility] [address] [place] [address] Dr. Aman Dover Basophils/100 WBC (Bld) 0.6 % Normal 0.2-2.0 [facility] Comment on above: Performed By: #### C BC #### [facility] [address] [address] [address] Aman Dover EO # 0.1 103/ul Normal 0.0-0.[address] [facility] Comment on above: Performed By: #### C BC #### [facility] [address] [place] [address] Dr. Aman Dover Eosinophils/100 WBC (Bld) 2.2 % Normal 0.9-7.0 [facility] Comment on above: Performed By: #### C BC #### [facility] [address] [place] [address] Dr. Aman Dover Erythrocyte distribution wid th (RBC) [Ratio] 12.7 % Normal 11.0-15.0 [facility] Comment on above: Performed By: #### C BC #### [facility] [address] [place] [address] Dr. Aman Dover Hematocrit (Bld) [Volume fraction] 39.9 % Normal 3 6.0-48.0 [facility] Comment on above: Performed By: #### C BC #### [facility] [address] [place] [address] Dr. Aman Dover Hemoglobin (Bld) [Mass/Vol] 13.3 g/dL Normal 12.0-16. 0 [facility] Comment on above: Performed By: #### C BC #### [facility] [address] [place] [address] Dr. Aman Dover IG # 0.02 10e3/ul Normal 0.00-0.03 [facility] Comment on above: Performed By: #### C BC #### [facility] [address] [place] [address] Dr. Aman Dover IG % 0.3 % Normal 0.0-0.5 [facility] Comment on above: Performed By: #### C BC #### [facility] [address] [place] [address] Dr. Aman Dover LYMPH # 1.3 103/ul Normal 1.2-3.8 [facility] Comment on above: Performed By: #### C BC #### [facility] [address] [place] [address] Dr. Aman Dover Lymphocytes/100 WBC (Bld) 19.7 % Critically low 20.5-6 0.0 [facility] Comment on above: Performed By: #### C BC #### [facility] [address] [place] [address] Dr. Aman Dover MANUAL DIFF REQ NO Normal [facility] Comment on above: Performed By: #### C BC #### [facility] [address] [address] [address] Aman Dover MCH (RBC) [Entitic mass] 32.0 pg Normal 26.7-34.0 [facility] Comment on above: Performed By: #### C BC #### [facility] [address] [place] [address] Dr. Aman Dover MCHC (RBC) [Mass/Vol] 33.3 g/dL Normal 29.9-35.2 [facility] Comment on above: Performed By: #### C BC #### [facility] [address] [place] [address] Dr. Aman Dover MCV (RBC) [Entitic vol] 96.1 fL Normal 81.0-99.0 [facility] Comment on above: Performed By: #### C BC #### [facility] [address] [place] [address] Dr. Aman Dover MONO # 0.6 103/ul Normal 0.3-0.[address] [facility] o[facility]ital Comment on above: Performed By: #### C BC #### [facility] [address] [place] [address] Dr. Aman Dover Monocytes/100 WBC (Bld) 8.5 % Normal 1.7-12.0 [facility] Comment on above: Performed By: #### C BC #### [facility] [address] [place] [address] Dr. Aman Dover NEUT # 4.4 103/ul Normal 1.4-6.[address] [facility] ospital Comment on above: Performed By: #### C BC #### [facility] [address] [place] [address] Dr. Aman Dover Neutrophils/100 WBC (Bld) 68.7 % Normal 43.0-75.0 [facility] Comment on above: Performed By: #### C BC #### [facility] [address] [place] [address] Dr. Aman Dover Platelet mean volume (Bld) [Entitic vol] 8.2 fL Critically low 9.5-13.5 [facility] pital Comment on above: Performed By: #### C BC #### [facility] [address] [place], [place] [address] Dr. Aman Dover PLT 301 103/ul Normal 150-[address] [facility] Comment on above: Performed By: #### C BC #### [facility] [address] [place], [place] [address] Dr. Aman Dover RBC 4.15 106/ul Critically low 4.20-5.40 [facility] Comment on above: Performed By: #### C BC #### [facility] [address] [place], [place] [address] Dr. Aman Dover WBC 6.5 103/ul Normal 4.0-11.0 [facility] Comment on above: Performed By: #### C BC #### [facility] [address] [place], [place] [address] Dr. Aman Dover T4, FREEon 12-06-2021 Free T4 [Mass/Vol] 1.2 ng/dL Normal 0.8-1.8 [facility] Comment on above: Performed By: #### 8 99, 866 #### [facility] [place] [address] Ground Intelligence Officer: Darrel Dorado MD TSHon 12-06-2021 TSH Qn 1.67 m[IU]/L Normal 0.40-4.50 [facility] Comment on above: Performed By: #### 8 , 866 #### [facility] [place] [address] Ground Intelligence Officer: Darrel Dorado MD [facility] 09-02-2021 Albumin [Mass/Vol] 4.6 g/dL Normal 3.6-5.1 [facility] Comment on above: Performed By: #### 1 7306, 95585, 3860 #### [facility] [place] [address] Ground Intelligence Officer: Darrel Dorado MD Albumin/Globulin [Mass ratio] 1.9 {ratio} Normal 1.0-2 .5 [facility] Comment on above: Performed By: #### 1 7306, 03725, 7600 #### [facility] of [address], [address] [place] [address] Ground Intelligence Officer: Darrel Dorado MD ALP [Catalytic activity/Vol] 61 U/L Normal 37-153 [facility] Comment on above: Performed By: #### 1 7306, 37700, 7600 #### [facility] of [address], [address] [place] [address] Ground Intelligence Officer: Darrel Dorado MD ALT [Catalytic activity/Vol] 15 U/L Normal 6-29 [facility] Comment on above: Performed By: #### 1 7306, 94876, 7600 #### [facility] of [address], [address] [place] [address] Ground Intelligence Officer: Darrel Dorado MD AST [Catalytic activity/Vol] 17 U/L Normal 10-35 [facility] Comment on above: Performed By: #### 1 7306, 16928, 7600 #### [facility] of [address], [address] [place] [address] Ground Intelligence Officer: Darrel Dorado MD Bilirubin [Mass/Vol] 0.4 mg/dL Normal 0.2-1.2 [facility] Comment on above: Performed By: #### 1 7306, 19416, 7600 #### [facility] of [address], [address] [place] [address] Ground Intelligence Officer: Darrel Dorado MD BUN/CREATININE RATIO NOT APPLICABLE Normal 6-22 [facility] Comment on above: Performed By: #### 1 7306, 41963, 7600 #### [facility] of [address], [address] [place] [address] Ground Intelligence Officer: Darrel Dorado MD Calcium [Mass/Vol] 9.4 mg/dL Normal 8.6-10.4 [facility] Comment on above: Performed By: #### 1 7306, 43156, 7600 #### [facility] of [address], [address] [place] [address] Ground Intelligence Officer: Darrel Dorado MD Chloride [Moles/Vol] 102 mmol/L Normal 98-110 [facility] Comment on above: Performed By: #### 1 7306, 26703, 0 #### [facility] [address], [address] [place] [address] Ground Intelligence Officer: Darrel Dorado MD CO2 [Moles/Vol] 29 mmol/L Normal 20-32 [facility] Comment on above: Performed By: #### 1 7306, 56726, 0 #### [facility] [address], [address] [place] [address] Ground Intelligence Officer: Darrel Dorado MD Creatinine [Mass/Vol] 0.57 mg/dL Normal 0.50-0.[address] [facility] Comment on above: Result Comment: For patients >49 years of age, the reference limit for Creatinine is approximately 13% higher for people identified as -Samoan. Performed By: #### 1 73, 82636, 0 #### [facility] [address], [address] [place] [address] Ground Intelligence Officer: Darrel Dorado MD eGFR NON-AFR. BOTSWANAN 100 mL/min/1.73m2 Normal > OR = 60 [facility] Comment on above: Performed By: #### 1 73, 81723, 0 #### [facility] [place] [address] Ground Intelligence Officer: Darrel Dorado MD GFR/1.73 sq M.predicted deyanira g blacks MDRD (S/P/Bld) [Vol rate/Area] 116 mL/min/{1.73_m2} Normal > OR = 60 [facility] Comment on above: Performed By: #### 1 7306, 50582, 7600 #### [facility] [address], [address] [place] [address] Ground Intelligence Officer: Darrel Dorado MD Globulin (S) [Mass/Vol] 2.4 g/dL Normal 1.9-3.7 [facility] Comment on above: Performed By: #### 1 7306, 29068, 0 #### [facility] of [address], [address] [place] [address] Ground Intelligence Officer: Darrel Dorado MD Glucose [Mass/Vol] 91 mg/dL Normal 65-139 [facility] Comment on above: Result Comment: Non-fasting reference interval Performed By: #### 1 7306, 84082, 7600 #### [facility] of [address], [address] [place] [address] Ground Intelligence Officer: Darrel Dorado MD Potassium [Moles/Vol] 4.0 mmol/L Normal 3.5-5.[address] [facility] [address] [facility] Comment on above: Performed By: #### 1 7306, 16040, 0 #### [facility] of [place] [address] Ground Intelligence Officer: Darrel Dorado MD Protein [Mass/Vol] 7.0 g/dL Normal 6.1-8.1 [facility] Comment on above: Performed By: #### 1 7306, 68335, 0 #### [facility] [address], [address] [place] [address] Ground Intelligence Officer: Darrel Dorado MD Sodium [Moles/Vol] 138 mmol/L Normal 135-146 [facility] Comment on above: Performed By: #### 1 7306, 52174, 7600 #### [facility] of [place] [address] Ground Intelligence Officer: Darrel Dorado MD Urea nitrogen [Mass/Vol] 14 mg/dL Normal 7-25 [facility] Comment on above: Performed By: #### 1 7306, 68468, 7600 #### [facility] of [place] [address] Ground Intelligence Officer: Darrel Dorado MD LIPID PANEL, [facility] [place] 08-16 Cholesterol [Mass/Vol] 238 mg/dL High <200 [facility] Comment on above: Order Comment: FASTI NG:NO FASTING: NO Performed By: #### 1 7306, 56885, 7600 #### [facility] [address], [address] [place] [address] Ground Intelligence Officer: Darrel Dorado MD Cholesterol in HDL [Mass/Vol] 63 mg/dL Normal > OR = 50 [facility] Comment on above: Order Comment: FASTI NG:NO FASTING: NO Performed By: #### 1 7306, 99501, 7600 #### [facility] [address], [address] [place] [address] Ground Intelligence Officer: Darrel Dorado MD Cholesterol in LDL [Mass/Vol] 151 mg/dL High [facility] Comment on above: Order Comment: FASTI NG:NO FASTING: NO Result Comment: Refe rence range: <100 Desirable range <100 mg/dL for primary prevention; <70 mg/dL for patients with CHD or diabetic patients with > or = 2 CHD risk factors. LDL-C is now calculated using the Marciano calculation, which is a validated novel method providing better accuracy than the Friedewald equation in the estimation of LDL-C. Luis Carlos LOERA et al. CARYN. 2013;310(19): 8400-7738 (http://education.QBE.CloudAcademy/faq/WLZ840) Performed By: #### 1 73, 55606, 0 #### [facility] [address], [address] [place] [address] Ground Intelligence Officer: Darrel Dorado MD Cholesterol.total/Cholestero l in HDL [Mass ratio] 3.8 {ratio} Normal <5.0 [facility] Comment on above: Order Comment: FASTI NG:NO FASTING: NO Performed By: #### 1 7306, 40836, 7600 #### [facility] [address], [address] [place] [address] Ground Intelligence Officer: Darrel Dorado MD NON HDL CHOLESTEROL 175 mg/dL (calc) High <130 [facility] Comment on above: Order Comment: FASTI NG:NO FASTING: NO Result Comment: For patients with diabetes plus 1 major ASCVD risk factor, treating to a non-HDL-C goal of <100 mg/dL (LDL-C of <70 mg/dL) is considered a therapeutic option. Performed By: #### 1 7306, 33788, 7600 #### [facility] [address], [address] [place] [address] Ground Intelligence Officer: Darrel Dorado MD Triglyceride [Mass/Vol] 120 mg/dL Normal <150 [facility] Comment on above: Order Comment: FASTI NG:NO FASTING: NO Performed By: #### 1 7306, 20779, 7600 #### [facility] [address], [address] [place] [address] Ground Intelligence Officer: Darrel Dorado MD VITAMIN D,25-OH,TOTAL,IAon 1 11-03-2020 VITAMIN D,25-OH,TOTAL,IA 26 ng/mL Low 30-100 [facility] Comment on above: Result Comment: Georgina min D Status 25-OH Vitamin D: Deficiency: <20 ng/mL Insufficiency: 20 - 29 ng/mL Optimal: > or = 30 ng/mL For 25-OH Vitamin D testing on patients on D2-supplementation and patients for whom quantitation of D2 and D3 fractions is required, the QuestAssureD(TM) 25-OH VIT D, (D2,D3), LC/MS/MS is recommended: order code 56627 (patients >2yrs). See Note 1 Note 1 For additional information, please refer to http://education.QBE.CloudAcademy/faq/QSP458 (This link is being provided for informational/ educational purposes only.) Performed By: #### 1 7306, 15608, 7600 #### [facility] [address], [address] [place], [place] [id number] Ground Intelligence Officer: Darrel Dorado MD Vital Signs Date Time Vital Sign Value Performing Clinician Shravan diana 05-06-2023 09:56-0400 Body temperature 97.39 [degF] Kelvin De La Fuente MD Work Phone: [facility] 05-06-2023 09:56-0400 Body weight 63.5 kg Kelvin De La Fuente MD Work Phone: [facility] 05-06-2023 09:56-0400 Diastolic blood pressure 72 mm[Hg] Kelvin De La Fuente MD Work Phone: [facility] 05-06-2023 09:56-0400 Heart rate 90 /min Kelvin De La Fuente MD Work Phone: [facility] 05-06-2023 09:56-0400 Respiratory rate 18 /min Kelvin De La Fuente MD Work Phone: [facility] 05-06-2023 09:56-0400 SaO2% (BldA) [Mass fraction] 98 % Kelvin De La Fuente MD Work Phone: [facility] 05-06-2023 09:56-0400 Systolic blood pressure 108 mm[Hg] Kelvin De La Fuente MD Work Phone: [facility] 08-16-2022 10:57-0500 Body temperature 97.2 [degF] Kelvin De La Fuente MD Work Phone: [facility] 08-16-2022 10:57-0500 Body weight 63.87 kg Kelvin De La Fuente MD Work Phone: [facility] 08-16-2022 10:57-0500 Diastolic blood pressure 72 mm[Hg] Kelvin De La Fuente MD Work Phone: [facility] 08-16-2022 10:57-0500 Heart rate 102 /min Kelvin De La Fuente MD Work Phone: [facility] 08-16-2022 10:57-0500 Respiratory rate 16 /min Kelvin De La Fuente MD Work Phone: [facility] 08-16-2022 10:57-0500 SaO2% (BldA) [Mass fraction] 98 % Kelvin De La Fuente MD Work Phone: [facility] 08-16-2022 10:57-0500 Systolic blood pressure 119 mm[Hg] Kelvin De La Fuente MD Work Phone: [facility] 06-11-2022 09:59-0400 Body temperature 97.3 [degF] Kelvin De La Fuente MD Work Phone: [facility] 06-11-2022 09:59-0400 Body weight 59.88 kg Kelvin De La Fuente MD Work Phone: [facility] 06-11-2022 09:59-0400 Diastolic blood pressure 50 mm[Hg] Kelvin De La Fuente MD Work Phone: [facility] 06-11-2022 09:59-0400 Heart rate 91 /min Kelvin De La Fuente MD Work Phone: [facility] 06-11-2022 09:59-0400 Respiratory rate 16 /min Kelvin De La Fuente MD Work Phone: [facility] 06-11-2022 09:59-0400 SaO2% (BldA) [Mass fraction] 97 % Kelvin De La Fuente MD Work Phone: [facility] 06-11-2022 09:59-0400 Systolic blood pressure 112 mm[Hg] Kelvin De La Fuente MD Work Phone: [facility] 05-11-2022 09:40-0400 Body temperature 98.2 [degF] Chair Aj Work Phone: [facility] 05-11-2022 09:40-0400 Diastolic blood pressure 60 mm[Hg] Chair Tarrant Work Phone: [facility] 05-11-2022 09:40-0400 Heart rate 99 /min Chair Aj Work Phone: [facility] 05-11-2022 09:40-0400 Respiratory rate 18 /min Chair Tarrant Work Phone: [facility] 05-11-2022 09:40-0400 SaO2% (BldA) [Mass fraction] 97 % Chair Aj Work Phone: [facility] 05-11-2022 09:40-0400 Systolic blood pressure 99 mm[Hg] Chair Tarrant Work Phone: [facility] 05-09-2022 10:17-0400 Body temperature 97.59 [degF] Kelvin De La Fuente MD Work Phone: [facility] 05-09-2022 10:17-0400 Body weight 62.23 kg Kelvin De La Fuente MD Work Phone: [facility] 05-09-2022 10:17-0400 Diastolic blood pressure 64 mm[Hg] Kelvin De La Fuente MD Work Phone: [facility] 05-09-2022 10:17-0400 Heart rate 110 /min Kelvin De La Fuente MD Work Phone: [facility] 05-09-2022 10:17-0400 Respiratory rate 16 /min Kelvin De La Fuente MD Work Phone: [facility] 05-09-2022 10:17-0400 SaO2% (BldA) [Mass fraction] 98 % Kelvin De La Fuente MD Work Phone: [facility] 05-09-2022 10:17-0400 Systolic blood pressure 101 mm[Hg] Kelvin De La Fuente MD Work Phone: [facility] 05-02-2022 09:23-0400 Body temperature 97.3 [degF] Kelvin De La Fuente MD Work Phone: [facility] 05-02-2022 09:23-0400 Body weight 62.23 kg Kelvin De La Fuente MD Work Phone: [facility] 05-02-2022 09:23-0400 Diastolic blood pressure 66 mm[Hg] Kelvin De La Fuente MD Work Phone: [facility] 05-02-2022 09:23-0400 Heart rate 113 /min Kelvin De La Fuente MD Work Phone: [facility] 05-02-2022 09:23-0400 Respiratory rate 16 /min Kelvin De La Fuente MD Work Phone: [facility] 05-02-2022 09:23-0400 SaO2% (BldA) [Mass fraction] 98 % Kelvin De La Fuente MD Work Phone: [facility] 05-02-2022 09:23-0400 Systolic blood pressure 103 mm[Hg] Kelvin De La Fuente MD Work Phone: [facility] 04-27-2022 09:45-0400 Body temperature 97.3 [degF] Chair Aj Work Phone: [facility] 04-27-2022 09:45-0400 Diastolic blood pressure 56 mm[Hg] Chair Aj Work Phone: [facility] 04-27-2022 09:45-0400 Heart rate 87 /min Chair Tarrant Work Phone: [facility] 04-27-2022 09:45-0400 Respiratory rate 18 /min Chair Aj Work Phone: [facility] 04-27-2022 09:45-0400 SaO2% (BldA) [Mass fraction] 96 % Chair Aj Work Phone: [facility] 04-27-2022 09:45-0400 Systolic blood pressure 102 mm[Hg] Chair Aj Work Phone: [facility] 04-25-2022 09:36-0400 Body temperature 98.29 [degF] Kelvin De La Fuente MD Work Phone: [facility] 04-25-2022 09:36-0400 Body weight 64.41 kg Kelvin De La Fuente MD Work Phone: [facility] 04-25-2022 09:36-0400 Diastolic blood pressure 73 mm[Hg] Kelvin De La Fuente MD Work Phone: [facility] 04-25-2022 09:36-0400 Heart rate 88 /min Kelvin De La Fuente MD Work Phone: [facility] 04-25-2022 09:36-0400 Respiratory rate 16 /min Kelvin De La Fuente MD Work Phone: [facility] 04-25-2022 09:36-0400 SaO2% (BldA) [Mass fraction] 98 % Kelvin De La Fuente MD Work Phone: [facility] 04-25-2022 09:36-0400 Systolic blood pressure 120 mm[Hg] Kelvin De La Fuente MD Work Phone: [facility] 04-09-2022 08:11-0400 Body temperature 97.3 [degF] Kelvin De La Fuente MD Work Phone: [facility] 04-09-2022 08:11-0400 Body weight 64.86 kg Kelvin De La Fuente MD Work Phone: [facility] 04-09-2022 08:11-0400 Diastolic blood pressure 74 mm[Hg] Kelvin De La Fuente MD Work Phone: [facility] 04-09-2022 08:11-0400 Heart rate 115 /min Kelvin De La Fuente MD Work Phone: [facility] 04-09-2022 08:11-0400 Respiratory rate 16 /min Kelvin De La Fuente MD Work Phone: [facility] 04-09-2022 08:11-0400 SaO2% (BldA) [Mass fraction] 99 % Kelvin De La Fuente MD Work Phone: [facility] 04-09-2022 08:11-0400 Systolic blood pressure 116 mm[Hg] Kelvin De La Fuente MD Work Phone: [facility] 02-02-2022 13:18-0400 Body height 167 cm Kelvin De La Fuente MD Work Phone: [facility] 02-02-2022 13:18-0400 Body temperature 97.81 [degF] Kelvin De La Fuente MD Work Phone: [facility] 02-02-2022 13:18-0400 Body weight 62.6 kg Kelvin De La Fuente MD Work Phone: [facility] 02-02-2022 13:18-0400 Diastolic blood pressure 70 mm[Hg] Kelvin De La Fuente MD Work Phone: [facility] 02-02-2022 13:18-0400 Heart rate 93 /min Kelvin De La Fuente MD Work Phone: [facility] 02-02-2022 13:18-0400 Respiratory rate 16 /min Kelvin De La Fuente MD Work Phone: [facility] 02-02-2022 13:18-0400 SaO2% (BldA) [Mass fraction] 99 % Kelvin De La Fuente MD Work Phone: [facility] 02-02-2022 13:18-0400 Systolic blood pressure 106 mm[Hg] Kelvin De La Fuente MD Work Phone: [facility] Encounters Encounter Date Encounter Type Care Provider Facility Start: 08-05-2023 End: 08-05-2023 ambulatory JOSE ELIAS LUCERO Not Available Start: 05-07-2023 Social Work Shantelle CHANDLERW Hematolo gy/Oncology Start: 05-06-2023 End: 05-06-2023 ambulatory KELVIN DE LA FUENTE Facility:[facility] Start: 05-06-2023 End: 05-06-2023 Patient encounter procedure Kelvin De La Fuente MD Work Phone: [facility] Comment on above: Larynx cancer (HCC) (Primary Dx) Start: 01-16-2023 Telephone encounter Kelvin De La Fuente MD Work Phone: Hematology/Oncology Comment on above: Records faxed/Disabi lity Start: 08-16-2022 End: 08-16-2022 ambulatory KELVIN DE LA FUENTE Facility:[facility] Start: 08-16-2022 End: 08-16-2022 Patient encounter procedure Kelvin De La Fuente MD Work Phone: Radiation Oncology Comment on above: Larynx cancer (HCC) (Primary Dx) Start: 07-18-2022 End: 07-19-[address] SHIRLENE FINN Facility: Start: 06-11-2022 End: 06-11-2022 ambulatory ANATOLIY TAMAYO Facility:[facility] Start: 06-11-2022 End: 06-11-2022 Patient encounter procedure Kelvin De La Fuente MD Work Phone: Radiation Oncology Comment on above: Larynx cancer (HCC) (Primary Dx) Start: 05-31-2022 Refill Kelvin De La Fuente MD Work Phone: Radiation Oncology Comment on above: Refill Request Start: 05-14-2022 Patient encounter procedure Kelvin De La Fuente MD Work Phone: [facility] Start: 05-14-2022 Radiation Oncology Note Kelvin De La Fuente MD Work Phone: Radiation Oncology Comment on above: Completion Note Start: 05-14-2022 End: 05-14-2022 ambulatory [facility] Facility:[facility] Start: 05-11-2022 End: 05-14-2022 Refill Kelvin De La Fuente MD Work Phone: Radiation Oncology Comment on above: Refill Request Cancer of larynx (HC C) (Primary Dx) Start: 05-10-2022 End: 05-10-2022 [facility] Facility:[facility] Start: 05-09-2022 End: 05-10-2022 ambulatory [facility] Facility:[facility] Start: 05-09-2022 End: 05-09-2022 ambulatory Chair 21 Aj Work Phone: Hematology/Oncology Comment on above: Cancer of larynx (HC C) (Primary Dx) Start: 05-09-2022 End: 05-09-[address] Kim Cortes RD Work Phone: Nutrition Therapy Comment on above: Nutrition Counseling Start: 05-09-2022 End: 05-09-2022 Patient encounter procedure Kelvin De La Fuente MD Work Phone: Radiation Oncology Comment on above: Larynx cancer (HCC) (Primary Dx) Start: 05-03-2022 End: 05-03-[address] Work Phone: [facility] Start: 05-03-2022 End: 05-03-2022 Nutrition therapy Kim Cortes RD Work Phone: Nutrition Therapy Comment on above: Nutrition Counseling Start: 05-02-2022 End: 05-02-2022 Patient encounter procedure Kelvin De La Fuente MD Work Phone: Radiation Oncology Comment on above: Larynx cancer (HCC) (Primary Dx) Start: 04-27-2022 End: 04-27-2022 ambulatory Chair 21 Aj Work Phone: Hematology/Oncology Comment on above: Cancer of larynx (HC C) (Primary Dx) Start: 04-26-2022 Telephone encounter Kelvin De La Fuente MD Work Phone: Radiation Oncology Comment on above: Patient Update Start: 04-25-2022 End: 04-25-2022 Patient encounter procedure Kelvin De La Fuente MD Work Phone: Radiation Oncology Comment on above: Larynx cancer (HCC) (Primary Dx) Start: 04-24-2022 Telephone encounter Kelvin De La Fuente MD Work Phone: Radiation Oncology Comment on above: Sore Throat Start: 04-19-2022 Refill Kelvin De La Fuente MD Work Phone: Radiation Oncology Start: 04-12-2022 End: 04-12-[address] Work Phone: [facility] Start: 04-12-2022 End: 04-12-2022 Nutrition therapy Kim Cortes RD Work Phone: Nutrition Therapy Comment on above: Nutrition Telephone Start: 04-09-2022 End: 04-09-2022 Patient encounter procedure Kelvin De La Fuente MD Work Phone: Radiation Oncology Comment on above: Larynx cancer (HCC) (Primary Dx) Start: 04-05-2022 Social Work Shantelle CLEARY Hematolo gy/Oncology Comment on above: Benefits Investigati on Start: 03-30-2022 Telephone encounter Kelvin De La Fuente MD Work Phone: Radiation Oncology Comment on above: Patient Question Start: 03-08-2022 Telephone encounter Kelvin De La Fuente MD Work Phone: Radiation Oncology Comment on above: Patient Question Start: 02-21-2022 Patient encounter procedure [facility] Start: 02-19-2022 End: 02-19-2022 Patient encounter procedure Klevin De La Fuente MD Work Phone: [facility] Comment on above: Larynx cancer (HCC) (Primary Dx) Start: 02-19-2022 Radiation Oncology Note Kelvin De La Fuente MD Work Phone: Radiation Oncology Comment on above: Simulation Note Treatment Planning Start: 02-16-2022 End: 02-16-[address] Work Phone: [facility] Start: 02-16-2022 End: 02-16-[address] therapy Kim Cortes RD Work Phone: Nutrition Therapy Comment on above: Nutrition Assessment Start: 02-02-2022 ambulatory Mirna Avendaño LPN Radia tion Oncology Comment on above: Patient Education Start: 02-02-2022 End: 02-02-2022 Patient encounter procedure Lab/[facility] Work Phone: Radiation Oncology Comment on above: Larynx cancer (HCC) Larynx cancer (HCC) (Primary Dx) Start: 01-23-2022 End: 01-23-[address] JOSE ELIAS LUCERO Facility:[facility] Start: 01-20-[address] [facility] Start: 01-17-2022 Encounter for prepro cedural laboratory examination DR JOSE ELIAS LUCERO [facility] Start: 01-15-2022 End: 01-16-[address] JOSE ELIAS LUCERO Facility:[facility] Start: 01-15-2022 End: 01-16-2022 Encounter for preprocedural laboratory examination DR JOSE ELIAS LUCERO Facility:[facility] Procedures Date Procedure Procedure Detail Performing Clinician Start: 07-19-2022 Mammography Kelvin De La Fuente MD Work Phone: Start: 02-02-2022 Creatinine blood Kelvin alas MD Work Phone: Plan of Treatment Date Care Activity Detail Author Start: 06-17-2027 Urine microalbumin profile DTAP,TDAP,TD (3 - Td or Tdap) [facility] Start: 07-19-2023 Mammography MAMMOGRAM [facility] Start: 05-17-2023 Influenza vaccination [facility] Start: 09-16-2022 DEPRESSION ASSESSMENT DEPRESSION ASS ESSMENT [facility] Start: 05-17-2022 Influenza vaccination INFLUENZA (#1) [facility] Start: 02-08-2022 End: 03-04-2023 Ct soft tissue neck w/contrast material CT NECK SOFT TISSUE W IVCON Radiology Routine Larynx cancer (HCC) Expected: 02/08/2022, Expires: 03/04/2023 [facility] Work Phone: Comment on above: Expected: 02/08/2022 , Expires: 03/04/2023 Start: 01-13-2022 COVID-19 VACCINE (4 - Booster for Pfizer series) COVID-19 VACCINE (4 - Booster for Pfizer series) [facility] Start: 11-09-2021 COVID-19 VACCINE (4 - Booster for Pfizer series) COVID-19 VACCINE (4 - Booster for Pfizer series) [facility] Start: 11-09-2021 COVID-19 VACCINE (4 - Pfizer series) COVID-19 VACCINE (4 - Pfizer series) [facility] Start: 09-16-2021 DEPRESSION ASSESSMENT DEPRESSION ASS ESSMENT [facility] Start: 12-04-2009 Influenza vaccination LUNG CANCER SC REENING [facility] Start: 12-04-2009 SHINGRIX VACCINE (1 of 2) SHINGRIX VACCINE (1 of 2) [facility] Start: 12-04-2004 COLOGUARD (FIT-DNA) COLOGUARD (FIT-D NA) [facility] Start: 12-04-2004 Colonoscopy COLONOSCOPY [facility] Start: 12-04-2004 COLORECTAL CANCER SCREENING COLORECTAL CANCER SCREENING [facility] Start: 12-04-[address] COLONOGRAPHY [facility] Start: 12-04-2004 DIABETES SCREEN DIABETES SCREEN [facility] Start: 12-04-2004 FECAL OCCULT BLOOD FECAL OCCULT BLOO D [facility] Start: 12-04-2004 LIPID SCREEN LIPID SCREEN [facility] Start: 12-04-2004 SIGMOIDOSCOPY SIGMOIDOSCOPY [facility] Start: 1999 Mammography MAMMOGRAM [facility] Start: 12-04-1989 HPV TESTING HPV TESTING [facility] Start: 12-04-1980 PAP TESTING PAP TESTING [facility] Start: 12-04-1978 SHINGRIX VACCINE (1 of 2) SHINGRIX VACCINE (1 of 2) [facility] Start: 12-04-1978 Urine microalbumin profile DTAP,TDAP,TD (1 - Tdap) [facility] Start: 12-04-1977 HEPATITIS C SCREENING HEPATITIS C CLAUDIA NII [facility] Start: 12-04-1977 HIV SCREENING HIV SCREENING [facility] Start: 1971 Adult depression screening assessment DEPRESSION SCREENING [facility] Start: 12-04-1965 PNEUMOCOCCAL (1 - PCV) PNEUMOCOCCAL (1 - PCV) [facility] CT SIM PLANNING RADIATION ONCOLOGY CT SIM PLANNING RADIATION ONCOLOGY Radiology Routine Larynx cancer (HCC) Ordered: 02/19/2022 [facility] Work Phone: Comment on above: Ordered: 02/19/2022 End: 07-11-2023 Radiologic exam swallow function contrast study XR MODIFIED BARIUM SWALLOW W SPEECH THERAPY Radiology Routine Larynx cancer (HCC) 1 Occurrences starting 06/11/2022 until 07/11/2023 [facility] Work Phone: Comment on above: 1 Occurrences starti ng 06/11/2022 until 07/11/2023 [facility] Immunizations Immunization Date Immunization Notes Care Provider Marissa kimball 07-19-2021 influenza, injectabl e, quadrivalent, preservative free Kim Cortes RD Work Phone: [facility] 05-18-2020 influenza, injectabl e, quadrivalent, preservative free Kim Cortes RD Work Phone: [facility] 05-12-2019 influenza, injectabl e, quadrivalent, preservative free Kim Cortes RD Work Phone: [facility] 05-12-2019 varicella zoster imm une globulin Kim Cortes RD Work Phone: [facility] 05-12-2019 zoster vaccine recombinant Kim Cortes RD Work Phone: [facility] 03-10-2019 zoster vaccine recombinant Kim Cortes RD Work Phone: [facility] 06-16-2018 influenza, injectabl e, quadrivalent, contains preservative Kim Julioel RD Work Phone: [facility] 06-17-2017 Influenza, injectabl e, Madin Aubrie Canine Kidney, preservative free, quadrivalent Kim Julioel RD Work Phone: [facility] 06-17-2017 tetanus toxoid, redu armando diphtheria toxoid, and acellular pertussis vaccine, adsorbed Kim Julioel RD Work Phone: [facility] 08-13-2016 influenza, seasonal, injectable, preservative free Kim Julioel RD Work Phone: [facility] 08-01-2015 influenza, seasonal, injectable, preservative free Kim Julioel RD Work Phone: [facility] 08-01-2015 pneumococcal conjuga te vaccine, [address] Work Phone: [facility] 09-15-2012 diphtheria, tetanus toxoids and acellular pertussis vaccine Kim Julioel RD Work Phone: [facility] 07-13-2011 pneumococcal polysaccharide vaccine, [address] Work Phone: [facility] Payers Date Payer Category Payer Private Health Insurance [id number] 2021 Private Health Insurance [facility] IN[employer] [id number] 2021-Present [phone] [address] [place] [address] Indemnity [id number] 2021 Private Health Insurance [id number] 1959 Unknown [id number] 1959 Unknown [id number] 1959 Unknown [id number] 1959 Unknown [id number] 1959 Unknown [id number] 1959 Private Health Insurance [id number] 1959 Private Health Insurance [id number] Social History Date Type Detail Facility Start: 02-02-2022 End: 04-25-2022 Tobacco smoking status NHIS Ex-smoker [facility] End: 09-16-2011 History of tobacco use Current smoker [facility] Start: 02-02-2022 End: 05-06-2023 Cigarettes smoked current (pack per day) - Reported 1.5 [facility] Start: 02-02-2022 End: 04-25-2022 Tobacco use and exposure Smokeless tobacco non-user [facility] Start: 02-02-2022 End: 05-06-2023 Alcohol intake Ex-drinker (finding) [facility] Start: 02-02-2022 End: 04-25-2022 Tobacco Comment currently uses a vape [facility] Start: 1960 Sex Assigned At Not on file [facility] Start: 01-23-2022 End: 08-16-2022 Exposure to SARS-CoV-2 (event) Not sure [facility] End: 09-16-2011 History of tobacco use Cigarette Smoker [facility] Start: 05-06-2023 Tobacco use panel [facility] Adult Depression Scr eening Assessment 0 [facility] Clinical Notes 01-23-2022 to 05-07-2023 Shantelle Danielson LSW - 05/07/2023 11:25 AM Kelvin Berman MD - 05/06/2023 10:05 AM EDTTelephone Encounter - Marla Estrada [facility] - 01/16/2023 11:04 AM Rosalia De La Fuente MD - 08/16/2022 11:34 PM EST Note Date & Type Note Facility 05-07-2023 Note HNO ID: [id number] Author: Shantelle Danielson LSW Service: ? Author Type: Refrigeration Lead Type: Progress Notes Filed: 05/07/2023 11:27 AM Note Text: Patient Declined Social Work Assessment Patient appears on the [facility] SW Report for a NCN score of 8. Questionnaire was completed during her follow up visit on 05/06/23. SW referral was declined. LINDY Angel [facility] 05-07-2023 History of Presen t illness Narrative Patient Declined Social Work Assessment Patient appears on the [facility] SW Report for a NCN score of 8. Questionnaire was completed during her follow up visit on 05/06/23. SW referral was declined. LINDY Angel documented in this encounter [facility] 05-06-2023 Note HNO ID: [id number] Author: Kelvin De La Fuente MD Service: ? Author Type: Physician Type: Progress Notes Filed: 05/06/2023 11:04 AM Note Text: Radiation Oncology - Follow Up Note PATIENT NAME: Manuela Null PATIENT DIAGNOSIS/PATIENT IDENTIFICATION: Ms. 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 INTERVAL HISTORY/ROS: Ms. Null returns to clinic today for routine follow-up approximately one year after the completion of her radiation treatments and nine months since her last visit on 08/16/2022. In the interim, she has been following regularly with Dr. Lucero and head and neck examination from earlier today was without concerns. Today she denies any pain/discomfort in the neck and is able to swallow well except for certain dry foods like crackers. She has good use of her voice but does get hoarse with extended use which is stable. She endorses dry mouth and intact taste and denies any sores or ulcers in the mouth. Her skin is intact without irritation or breakdown and she uses a moisturizer daily and notes no new lumps or bumps in the neck. She describes fatigue which has been stable since the end of radiation with good appetite and hydration and stable weight. She has chronic joint pains and headaches and has recently been having issues with her vision but otherwise denies any recent fevers, chills, shortness of breath, chest pain/palpitations, abdominal pain, nausea, vomiting, change in bowel/urinary habits, difficulty with gait/balance, recent falls, etc. The remainder of the review of systems was performed and was otherwise noncontributory. ALLERGIES ALLERGIES Allergen Reactions Moxifloxacin Hives, Angioedema MEDICATIONS: Current Outpatient Medications: prochlorperazine (COMPAZINE) 10 mg tablet sennosides (SENNA) 8.8 mg/5 mL oral liquid omeprazole (PRILOSEC) 40 mg capsule cyclobenzaprine (FLEXERIL) 10 mg tablet Cholecalciferol, Vitamin D3, 50 mcg (2,000 unit) cap estradiol (CLIMARA) 0.05 mg/24 hr FLUoxetine (PROZAC) 20 mg capsule meclizine (ANTIVERT) 25 mg tab spironolactone (ALDACTONE) 25 mg tablet Hypcxypwfi-Dcw-Lyftkunghz-Caf 18-493-35-30 mg per capsule diphenhydrAMINE 12.5 mg/5 mL lidocaine visc 2% MAALOX 200-200-20 mg/5 mL oral liquid 1:1:1 (CPD) fluticasone (FLONASE) 50 mcg/actuation nasal spray PHYSICAL EXAM: GENERAL: middle-aged woman sitting in chair in no acute distress. VITALS: BP 108/72 Pulse 90 Temp 97.4 Resp 18 Wt 140 lb (63.5kg) SpO2 98% KPS: 90 HEENT: NC/AT, anicteric sclera HEART: S1S2 LUNGS: non-labored breathing ABDOMEN: soft MUSCULOSKELETAL: no peripheral edema, moves all extremities. NEURO: no focal deficit; AANDO X3. ASSESSMENT AND PLAN: Ms. 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 Ms. Null is doing well clinically approximately one year after the completion of her radiation treatments to the larynx with resolution of the acute toxicities of treatment and stable voice. She is without clinical concern for disease after head and neck examination by Dr. Lucero earlier today. She has had stable/chronic fatigue since the end of treatment and will have her thyroid function checked with her next visit with her PCP. Patient was also reassured that her eye recent issues were in no way related to her radiation to the larynx. She will continue her surveillance with Dr. Lucero as scheduled and I will plan to see her back in approximately one year. The patient is aware to contact the clinic in the interim should any questions or concerns arise. Thank you for allowing us to participate in the care of this patient. Signed by: Kelvin De La Fuente MD I spent a total of 20 minutes on the date of the service which included preparing to see the patient, [id number] patient care, and counseling and educating the patient/family/caregiver. This document has been created with the use of voice recognition technology. It may contain inaccuracies, misspellings, inaccurate syntax or inappropriate word context that are a result of the inadequacies/shortcomings of said technology/software. [facility] 05-06-2023 History of Presen t illness Narrative Radiation Oncology - Follow Up Note PATIENT NAME: Manuela Null PATIENT DIAGNOSIS/PATIENT IDENTIFICATION: Ms. 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 INTERVAL HISTORY/ROS: Ms. Null returns to clinic today for routine follow-up approximately one year after the completion of her radiation treatments and nine months since her last visit on 08/16/2022. In the interim, she has been following regularly with Dr. Lucero and head and neck examination from earlier today was without concerns. Today she denies any pain/discomfort in the neck and is able to swallow well except for certain dry foods like crackers. She has good use of her voice but does get hoarse with extended use which is stable. She endorses dry mouth and intact taste and denies any sores or ulcers in the mouth. Her skin is intact without irritation or breakdown and she uses a moisturizer daily and notes no new lumps or bumps in the neck. She describes fatigue which has been stable since the end of radiation with good appetite and hydration and stable weight. She has chronic joint pains and headaches and has recently been having issues with her vision but otherwise denies any recent fevers, chills, shortness of breath, chest pain/palpitations, abdominal pain, nausea, vomiting, change in bowel/urinary habits, difficulty with gait/balance, recent falls, etc. The remainder of the review of systems was performed and was otherwise noncontributory. ALLERGIES ALLERGIES Allergen Reactions Moxifloxacin Hives, Angioedema MEDICATIONS: Current Outpatient Medications: prochlorperazine (COMPAZINE) 10 mg tablet sennosides (SENNA) 8.8 mg/5 mL oral liquid omeprazole (PRILOSEC) 40 mg capsule cyclobenzaprine (FLEXERIL) 10 mg tablet Cholecalciferol, Vitamin D3, 50 mcg (2,000 unit) cap estradiol (CLIMARA) 0.05 mg/24 hr FLUoxetine (PROZAC) 20 mg capsule meclizine (ANTIVERT) 25 mg tab spironolactone (ALDACTONE) 25 mg tablet Zueogcmsvi-Sct-Ewiadiiqgx-Caf 20-153-81-30 mg per capsule diphenhydrAMINE 12.5 mg/5 mL lidocaine visc 2% MAALOX 200-200-20 mg/5 mL oral liquid 1:1:1 (CPD) fluticasone (FLONASE) 50 mcg/actuation nasal spray PHYSICAL EXAM: GENERAL: middle-aged woman sitting in chair in no acute distress. VITALS: BP 108/72 Pulse 90 Temp 97.4 Resp 18 Wt 140 lb (63.5kg) SpO2 98% KPS: 90 HEENT: NC/AT, anicteric sclera HEART: S1S2 LUNGS: non-labored breathing ABDOMEN: soft MUSCULOSKELETAL: no peripheral edema, moves all extremities. NEURO: no focal deficit; A&O X3. ASSESSMENT AND PLAN: Ms. 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 Ms. Null is doing well clinically approximately one year after the completion of her radiation treatments to the larynx with resolution of the acute toxicities of treatment and stable voice. She is without clinical concern for disease after head and neck examination by Dr. Lucero earlier today. She has had stable/chronic fatigue since the end of treatment and will have her thyroid function checked with her next visit with her PCP. Patient was also reassured that her eye recent issues were in no way related to her radiation to the larynx. She will continue her surveillance with Dr. Lucero as scheduled and I will plan to see her back in approximately one year. The patient is aware to contact the clinic in the interim should any questions or concerns arise. Thank you for allowing us to participate in the care of this patient. Signed by: Kelvin De La Fuente MD I spent a total of 20 minutes on the date of the service which included preparing to see the patient, [id number] patient care, and counseling and educating the patient/family/caregiver. This document has been created with the use of voice recognition technology. It may contain inaccuracies, misspellings, inaccurate syntax or inappropriate word context that are a result of the inadequacies/shortcomings of said technology/software. documented in this encounter [facility] 01-16-2023 Miscellaneous Notes Records faxed to [facility] per patient request. documented in this encounter [facility] 08-17-2022 Note HNO ID: [id number] Author: Kelvin De La Fuente MD Service: ? Author Type: Physician Type: Progress Notes Filed: 08/29/2022 2:49 AM Note Text: Radiation Oncology - Follow Up Note PATIENT NAME: Manuela Null PATIENT DIAGNOSIS/PATIENT IDENTIFICATION: Ms. 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 INTERVAL HISTORY/ROS: Ms. Null returns to clinic today for routine follow-up approximately three months after the completion of her radiation treatments and two months since her last visit on . In the interim, she notes substantial improvement in the resolution of her throat pain now only notes small area of discomfort when she chews. Her skin has recovered and is intact with no breakdown or no new lumps or bumps. She does note mild itching and uses a moisturizer daily. She reports intact range of motion of the neck. She notes improvement in her voice and feels it is almost near baseline and does not fatigue easily. She denies any dry mouth or altered taste or any sores or ulcers in the mouth. She reports improvement in her fatigue and has returned to work part-time. She endorses good appetite hydration and stable weight. She denies any choking sensation with swallowing. She otherwise denies any recent fevers, chills, headaches, difficulty with speech/swallowing, shortness of breath, chest pain/palpitations, abdominal pain, nausea, vomiting, change in bowel/urinary habits, difficulty with gait/balance, recent falls, etc. The remainder of the review of systems was performed and was otherwise noncontributory. ALLERGIES ALLERGIES Allergen Reactions Moxifloxacin Hives, Angioedema MEDICATIONS: Current Outpatient Medications: prochlorperazine (COMPAZINE) 10 mg tablet sennosides (SENNA) 8.8 mg/5 mL oral liquid diphenhydrAMINE 12.5 mg/5 mL lidocaine visc 2% MAALOX 200-200-20 mg/5 mL oral liquid 1:1:1 (CPD) omeprazole (PRILOSEC) 40 mg capsule cyclobenzaprine (FLEXERIL) 10 mg tablet Cholecalciferol, Vitamin D3, 50 mcg (2,000 unit) cap estradiol (CLIMARA) 0.05 mg/24 hr FLUoxetine (PROZAC) 20 mg capsule fluticasone (FLONASE) 50 mcg/actuation nasal spray meclizine (ANTIVERT) 25 mg tab spironolactone (ALDACTONE) 25 mg tablet Ugwznivegv-Gpx-Yfdzgvmbjz-Caf 47-394-96-30 mg per capsule PHYSICAL EXAM: GENERAL: middle-aged woman sitting in chair in no acute distress. VITALS: BP 119/72 Pulse 102 Temp (Src) 97.2 (Temporal) Resp 16 Wt 140 lb 12.8 oz (63.9kg) SpO2 98% KPS: 90 HEENT: NC/AT, anicteric sclera HEART: S1S2 LUNGS: non-labored breathing ABDOMEN: soft MUSCULOSKELETAL: no peripheral edema, moves all extremities. NEURO: no focal deficit; AANDO X3. ASSESSMENT AND PLAN: Ms. 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 Ms. Null is doing well clinically approximately 3 months out from the completion of her radiation treatments to the larynx with resolution of much of the acute toxicities of therapy. She reports near full recovery of her voice with resolution of her throat pain and skin irritation. She is scheduled to meet with Dr. Lucero next week to proceed to laryngoscopic surveillance and I will plan to see her back in approximately 9 months. The patient is aware to contact the clinic in the interim should any questions or concerns arise. Thank you for allowing us to participate in the care of this patient. Signed by: Kelvin De La Fuente MD I spent a total of 20 minutes on the date of the service which included preparing to see the patient, [id number] patient care, and counseling and educating the patient/family/caregiver. This document has been created with the use of voice recognition technology. It may contain inaccuracies, misspellings, inaccurate syntax or inappropriate word context that are a result of the inadequacies/shortcomings of said technology/software. [facility] 08-16-2022 History of Presen t illness Narrative Radiation Oncology - Follow Up Note PATIENT NAME: Manuela Null PATIENT DIAGNOSIS/PATIENT IDENTIFICATION: Ms. 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 INTERVAL HISTORY/ROS: Ms. Null returns to clinic today for routine follow-up approximately three months after the completion of her radiation treatments and two months since her last visit on . In the interim, she notes substantial improvement in the resolution of her throat pain now only notes small area of discomfort when she chews. Her skin has recovered and is intact with no breakdown or no new lumps or bumps. She does note mild itching and uses a moisturizer daily. She reports intact range of motion of the neck. She notes improvement in her voice and feels it is almost near baseline and does not fatigue easily. She denies any dry mouth or altered taste or any sores or ulcers in the mouth. She reports improvement in her fatigue and has returned to work part-time. She endorses good appetite hydration and stable weight. She denies any choking sensation with swallowing. She otherwise denies any recent fevers, chills, headaches, difficulty with speech/swallowing, shortness of breath, chest pain/palpitations, abdominal pain, nausea, vomiting, change in bowel/urinary habits, difficulty with gait/balance, recent falls, etc. The remainder of the review of systems was performed and was otherwise noncontributory. ALLERGIES ALLERGIES Allergen Reactions Moxifloxacin Hives, Angioedema MEDICATIONS: Current Outpatient Medications: prochlorperazine (COMPAZINE) 10 mg tablet sennosides (SENNA) 8.8 mg/5 mL oral liquid diphenhydrAMINE 12.5 mg/5 mL lidocaine visc 2% MAALOX 200-200-20 mg/5 mL oral liquid 1:1:1 (CPD) omeprazole (PRILOSEC) 40 mg capsule cyclobenzaprine (FLEXERIL) 10 mg tablet Cholecalciferol, Vitamin D3, 50 mcg (2,000 unit) cap estradiol (CLIMARA) 0.05 mg/24 hr FLUoxetine (PROZAC) 20 mg capsule fluticasone (FLONASE) 50 mcg/actuation nasal spray meclizine (ANTIVERT) 25 mg tab spironolactone (ALDACTONE) 25 mg tablet Xmdawekyqq-Ygu-Rmeviovllr-Caf 41-195-69-30 mg per capsule PHYSICAL EXAM: GENERAL: middle-aged woman sitting in chair in no acute distress. VITALS: BP 119/72 Pulse 102 Temp (Src) 97.2 (Temporal) Resp 16 Wt 140 lb 12.8 oz (63.9kg) SpO2 98% KPS: 90 HEENT: NC/AT, anicteric sclera HEART: S1S2 LUNGS: non-labored breathing ABDOMEN: soft MUSCULOSKELETAL: no peripheral edema, moves all extremities. NEURO: no focal deficit; A&O X3. ASSESSMENT AND PLAN: Ms. 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 Ms. Null is doing well clinically approximately 3 months out from the completion of her radiation treatments to the larynx with resolution of much of the acute toxicities of therapy. She reports near full recovery of her voice with resolution of her throat pain and skin irritation. She is scheduled to meet with Dr. Lucero next week to proceed to laryngoscopic surveillance and I will plan to see her back in approximately 9 months. The patient is aware to contact the clinic in the interim should any questions or concerns arise. Thank you for allowing us to participate in the care of this patient. Signed by: Kelvin De La Fuente MD I spent a total of 20 minutes on the date of the service which included preparing to see the patient, [id number] patient care, and counseling and educating the patient/family/caregiver. This document has been created with the use of voice recognition technology. It may contain inaccuracies, misspellings, inaccurate syntax or inappropriate word context that are a result of the inadequacies/shortcomings of said technology/software. documented in this encounter [facility] 06-12-2022 Note HNO ID: [id number] Author: Kelvin De La Fuente MD Service: ? Author Type: Physician Type: Progress Notes Filed: 06/20/2022 12:26 AM Note Text: Radiation Oncology - Follow Up Note PATIENT NAME: Manuela Null PATIENT DIAGNOSIS/PATIENT IDENTIFICATION: Ms. 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 Ms. Null returns to clinic today for routine follow-up approximately one month after the completion of her radiation treatments. In the interim, she has been recovering from the acute toxicities of treatment. Today she notes that her voice is slowly coming back this past week and she still notes pain at 7/10 with swallowing with a gagging/vomiting reflex. She denies any choking sensation and consumes a soft diet including 4 cans of boost a day. She reports having lost 2 pounds since completion of treatment and continues to hydrate with over 48 ounces a day. She uses the baking soda rinses as well as the BMX 4-5 times a day. She denies any sores or ulcers in the mouth or any dry mouth and notes slightly altered taste. Her skin has healed and notes no current breakdown and continues to use a moisturizer. She reports improving energy as she has started to return to work part-time. We will try a course of Compazine to help with her nausea and plan for a swallow study. She will follow with Dr. Lucero as scheduled for laryngoscopic evaluation and I will plan to see her back in approximately 2 months. The patient is aware to contact the clinic in the interim should any questions or concerns arise. Thank you for allowing us to participate in the care of this patient. Signed by: Kelvin De La Fuente MD This document has been created with the use of voice recognition technology. It may contain inaccuracies, misspellings, inaccurate syntax or inappropriate word context that are a result of the inadequacies/shortcomings of said technology/software. [facility] 06-11-2022 History of Presen t illness Narrative Radiation Oncology - Follow Up Note PATIENT NAME: Manuela Null PATIENT DIAGNOSIS/PATIENT IDENTIFICATION: Ms. 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 Ms. Null returns to clinic today for routine follow-up approximately one month after the completion of her radiation treatments. In the interim, she has been recovering from the acute toxicities of treatment. Today she notes that her voice is slowly coming back this past week and she still notes pain at 7/10 with swallowing with a gagging/vomiting reflex. She denies any choking sensation and consumes a soft diet including 4 cans of boost a day. She reports having lost 2 pounds since completion of treatment and continues to hydrate with over 48 ounces a day. She uses the baking soda rinses as well as the BMX 4-5 times a day. She denies any sores or ulcers in the mouth or any dry mouth and notes slightly altered taste. Her skin has healed and notes no current breakdown and continues to use a moisturizer. She reports improving energy as she has started to return to work part-time. We will try a course of Compazine to help with her nausea and plan for a swallow study. She will follow with Dr. Lucero as scheduled for laryngoscopic evaluation and I will plan to see her back in approximately 2 months. The patient is aware to contact the clinic in the interim should any questions or concerns arise. Thank you for allowing us to participate in the care of this patient. Signed by: Kelvin De La Fuente MD This document has been created with the use of voice recognition technology. It may contain inaccuracies, misspellings, inaccurate syntax or inappropriate word context that are a result of the inadequacies/shortcomings of said technology/software. documented in this encounter [facility] 05-31-2022 Miscellaneous Notes Pts spouse LM requesting refill on hydrocodone liquid. Call placed to pt and she staets she is doing a little better, but still struggling to eat any solid foods. She is mostly drinking boost and pushing fluids. She is very hoarse and still feels she has a 'lump' in the throat. [facility] [place]. MARY- please sign if agreeable. Maranda Estrada RN documented in this encounter [facility] 05-15-2022 Note HNO ID: [id number] Author: Kelvin De La Fuente MD Service: ? 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 She is also noted some desquamation in the skin and uses a combination of Aquaphor and Neosporin as well as cold compresses. She does endorse dry mouth and altered taste and does use the baking soda rinse several times a day. She denies any sores or ulcers in the mouth consumes a soft diet which includes 2-3 boost a day. She has been receiving IV fluids intermittently which she feels helps. PHYSICAL EXAM: KPS: 90 General Appearance: Alert and oriented. No acute distress. Radiation dermatitis: Moderate Mucositis: Moderate Oral cavity and oropharynx: lips and gums normal, oral and pharyngeal mucosa dry Neck: Normal ROM. No palpable cervical or supraclavicular adenopathy; erythema with breakdown IMAGING/LAB RESULTS: None TOXICITY ASSESSMENT (CTCv4): Dysphagia:grade 2 - Symptomatic and altered eating/swallowing Mucositis: grade 2 - Moderate pain; not interfering with oral intake; modified diet indicated Radiation dermatitis: grade 1 - Faint erythema or dry desquamation Trismus: grade 0 - No symptoms Voice Changes:grade 1 - Mild or intermittent change from normal voice Xerostomia: grade 1 - Symptomatic (dry or thick saliva) without significant dietary alteration; unstimulated saliva flow >2ml/min Fatigue: grade 1 - Fatigue relieved by rest Pain: grade 2 - Moderate pain; limiting instrumental ADL Treatment chart checked: Yes Patient treatment site reviewed and verified:Yes Port films reviewed and current:Yes Medications started: None ASSESSMENT:Clinically stable. Toxicity within expected parameters. The patient has completed radiotherapy and will be seen in follow-up in 3-4 weeks. Acute and delayed side effects reviewed. Kelvin De La Fuente MD [facility] 05-14-2022 Note HNO ID: [id number] Author: Kelvin De La Fuente MD Service: ? Author Type: Physician Type: Progress Notes Filed: 05/25/2022 12:34 AM Note Text: [facility] Radiation Oncology Department RADIATION ONCOLOGY - COMPLETION NOTE PATIENT: MANUELA NULL: 1960 DATES OF TREATMENT: 04/05/2022-05/14/2022 DIAGNOSIS: Ms. 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 AREA TREATED: Glottis/Larynx DELIVERED DOSE: Area: Glottis/Larynx 6300 cGy in 28 fractions, 2 [place], 3D Conformal, 6MV with daily CBCT guidance TOTAL: 6300 cGy in 28 fractions ELAPSED TIME: 39 days. CLINICAL SUMMARY: The patient tolerated course of radiation therapy well with treatment-related fatigue, dermatitis, altered voice, and throat pain/dysphagia as expected. No other significant issues. The patient was able to complete treatment as intended without break interruption or modification of prescription plan. The patient will be evaluated in 3-4 weeks for post-radiation follow-up and follow with Dr. Lucero for continued evaluation/surveillance. Staff Physician Kelvin De La Fuente M.D. / WST :53 AM Electronically Signed cc: Jose Elias Lucero MD [address] [facility] [address] [address]ayo, DO [address] [facility] [id number] [address] [facility] 05-14-2022 History of Presen t illness Narrative [facility] Radiation Oncology Department RADIATION ONCOLOGY - COMPLETION NOTE PATIENT: MANUELA NULL: 1960 DATES OF TREATMENT: 04/05/2022-05/14/2022 DIAGNOSIS: Ms. 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 AREA TREATED: Glottis/Larynx DELIVERED DOSE: Area: Glottis/Larynx 6300 cGy in 28 fractions, 2 [place], 3D Conformal, 6MV with daily CBCT guidance TOTAL: 6300 cGy in 28 fractions ELAPSED TIME: 39 days. CLINICAL SUMMARY: The patient tolerated course of radiation therapy well with treatment-related fatigue, dermatitis, altered voice, and throat pain/dysphagia as expected. No other significant issues. The patient was able to complete treatment as intended without break interruption or modification of prescription plan. The patient will be evaluated in 3-4 weeks for post-radiation follow-up and follow with Dr. Lucero for continued evaluation/surveillance. Staff Physician Kelvin De La Fuente M.D. / WST 24:53 AM Electronically Signed cc: Jose Elias Lucero MD [address] [facility] [address] [address]ryrosy, DO [address] [facility] [address] [address] documented in this encounter [facility] 05-09-2022 Note HNO ID: [id number] Author: Kim Cortes RD Service: ? Author Type: Registered Dietitian Type: Progress Notes Filed: 05/09/2022 12:58 PM Note Text: Oncology Nutrition Therapy Progress Note RECOMMENDED MALNUTRITION DIAGNOSIS: NO MALNUTRITION IDENTIFIED Some elements copied from my note on 05/03/2022, have been updated and all reflect current decision making from today, 05/09/2022 Nutrition Intervention: -continue small frequent meals/snacks -aim for soft foods and full liquids -continue supplementation -boost high protein 3x per day -encouraged adequate hydration -continue calorie/protein boosting techniques Nutrition Monitoring AND Evaluation: -PO Intake -Wt status -Supplement tolerance/acceptance -Biochemical Markers -Plan of care Date of last encounter: May 03, 2022 Patient met goal(s): Partially Patient's symptoms are: Oral: swallowing problems and taste changes Behavioral: altered appetite Pt presents for nutrition counseling follow up. Pt's weight remains stable. Pt currently being treated with RT. Pt c/o swallowing difficulty and taste changes. She is getting IVF today. She is scheduled to complete RT on Saturday05/14/2022. Appetite appears varied. Intakes are fair to good. She is only tolerating liquids and some soft solids at present. She is consuming 2 ONS per day to supplement her intakes. Discussed with pt increasing this to 3x per day to increase overall calorie/protein intakes. Briefly discussed importance of ongoing adequate nutrition post radiation for healing and recovering. Pt verbalized understanding. READINESS TO LEARN Cognitive ability: Alert and oriented Motivation to learn: Interested Family support: Unable to assess - Family not present Instruction provided to: Patient Patient learns best by: Multiple Methods Factors affecting learning: None Physical limitations affecting learning: None Educational materials provided: none this visit Need for Follow up: will continue to follow Referred/Supervised by: Anastasia SIMON Billing Type: Re-assess/15 min 1 unit Billed Time: 15 minutes Signed by: Kim Cortes MS, NATY, ZEN [facility] 05-09-2022 History of Presen t illness Narrative Oncology Nutrition Therapy Progress Note RECOMMENDED MALNUTRITION DIAGNOSIS: NO MALNUTRITION IDENTIFIED Some elements copied from my note on 05/03/2022, have been updated and all reflect current decision making from today, 05/09/2022 Nutrition Intervention: -continue small frequent meals/snacks -aim for soft foods and full liquids -continue supplementation -boost high protein 3x per day -encouraged adequate hydration -continue calorie/protein boosting techniques Nutrition Monitoring & Evaluation: -PO Intake -Wt status -Supplement tolerance/acceptance -Biochemical Markers -Plan of care Date of last encounter: May 03, 2022 Patient met goal(s): Partially Patient's symptoms are: Oral: swallowing problems and taste changes Behavioral: altered appetite Pt presents for nutrition counseling follow up. Pt's weight remains stable. Pt currently being treated with RT. Pt c/o swallowing difficulty and taste changes. She is getting IVF today. She is scheduled to complete RT on Saturday05/14/2022. Appetite appears varied. Intakes are fair to good. She is only tolerating liquids and some soft solids at present. She is consuming 2 ONS per day to supplement her intakes. Discussed with pt increasing this to 3x per day to increase overall calorie/protein intakes. Briefly discussed importance of ongoing adequate nutrition post radiation for healing and recovering. Pt verbalized understanding. READINESS TO LEARN Cognitive ability: Alert and oriented Motivation to learn: Interested Family support: Unable to assess - Family not present Instruction provided to: Patient Patient learns best by: Multiple Methods Factors affecting learning: None Physical limitations affecting learning: None Educational materials provided: none this visit Need for Follow up: will continue to follow Referred/Supervised by: Anastasia SIMON Billing Type: Re-assess/15 min 1 unit Billed Time: 15 minutes Signed by: Kim Kaetzel, MS, RDN, LD documented in this encounter [facility] 05-09-2022 Note Education (NUTRSA) MANUELA NULL ([id number]) 1960 F Date Time Provider Department 05/09/22 9:45 AM KIM CORTES Reason for Visit: Nutrition Counseling [76] Primary Visit Diagnosis:Larynx cancer (HCC) [C32.9] During your visit today, we recorded the following information about you: Allergies As of Date: 05/09/2022 Noted Allergy Reaction MOXIFLOXACIN 02/02/2022 4 - Hives 18 - Angioedema Date Reviewed: 05/09/2022 Reviewed by: Kim Cortes RD - Fully Assessed Prescriptions as of 05/09/2022 - sennosides (SENNA) 8.8 mg/5 mL oral liquid Take 10 mL by mouth daily at bedtime. Use while taking pain medication and hold for loose bowel movements/diarrhea. - diphenhydrAMINE 12.5 mg/5 mL lidocaine visc 2% MAALOX 200-200-20 mg/5 mL oral liquid 1:1:1 (CPD) Swish and swallow 5 to 10 mL (allowing to coat the back of the throat) 5 to 6 times a day as needed for discomfort including before meals and before bedtime - HYDROcodone-acetaminophen (HYCET) 7.5-325 mg/15 mL oral liquid Take 10 mL by mouth every 6 hours as needed for pain. May alternate with anti-inflammatory (motrin, alleve, etc). Take with stool softener to avoid constipation. - LORazepam (ATIVAN) 0.5 mg Take 1 tablet by mouth at bedtime as needed. - omeprazole (PRILOSEC) 40 mg capsule take 1 capsule by mouth IN THE MORNING 30 MINUTES TO 1 HOUR PRIOR TO EATING breakfast - famotidine (PEPCID) 20 mg tablet Take 20 mg by mouth daily at bedtime. - cyclobenzaprine (FLEXERIL) 10 mg tablet Take 10 mg by mouth daily at bedtime. - Cholecalciferol, Vitamin D3, 50 mcg (2,000 unit) cap Vitamin D3 50 mcg (2,000 unit) capsule take 1 capsule by mouth once daily - estradiol (CLIMARA) 0.05 mg/24 hr estradiol 0.05 mg/24 hr weekly transdermal patch apply 1 patch every week as directed - FLUoxetine (PROZAC) 20 mg capsule fluoxetine 20 mg capsule take 1 capsule by mouth once daily - fluticasone (FLONASE) 50 mcg/actuation nasal spray fluticasone propionate 50 mcg/actuation nasal spray,suspension USE 1 SPRAY NASALLY DAILY - meclizine (ANTIVERT) 25 mg tab meclizine 25 mg tablet take 1 tablet by mouth once daily if needed - spironolactone (ALDACTONE) 25 mg tablet spironolactone 25 mg tablet TAKE 1 TABLET BY MOUTH ONE DAILY - Dnouwbvvnw-Exn-Oepawkcest-Caf 22-588-09-30 mg per capsule butalbital 50 mg-acetaminophen 325 mg-caffeine 40 mg-codeine 30 mg cap take 1 capsule by mouth twice a day Encounter Status:Closed by KIM CORTES on 05/09/22 [facility] 05-09-2022 Note HNO ID: [id number] Author: Kelvin De La Fuente MD Service: ? 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 She controls with combination of BMX and Hycet. She also notes dry mouth and altered taste and has transition to a softer diet including boost and Ensure. She has difficulty with liquids as well and has been receiving intermittent IV fluids. She uses a stool softener. She denies any sores or ulcers in the mouth and does the baking soda rinse 10-15 times a day. She has skin erythema without breakdown and use a moisturizer 3 times a day. Last 5 Encounter Wt Readings: Date: Wt: 05/09/2022 62.2 kg (137 lb 3.2 oz) 05/02/2022 62.2 kg (137 lb 3.2 oz) 04/25/2022 64.4 kg (142 lb) 04/18/2022 64.9 kg (143 lb) 04/09/2022 64.9 kg (143 lb) PHYSICAL EXAM: KPS: 90 General Appearance: Alert and oriented. No acute distress. Radiation dermatitis: Mild Mucositis: Moderate Oral cavity and oropharynx: lips and gums normal, oral and pharyngeal mucosa dry Neck: Normal ROM. No palpable cervical or supraclavicular adenopathy; erythema without breakdown IMAGING/LAB RESULTS: None TOXICITY ASSESSMENT (CTCv4): Dysphagia:grade 2 - Symptomatic and altered eating/swallowing Mucositis: grade 2 - Moderate pain; not interfering with oral intake; modified diet indicated Radiation dermatitis: grade 1 - Faint erythema or dry desquamation Trismus: grade 0 - No symptoms Voice Changes:grade 1 - Mild or intermittent change from normal voice Xerostomia: grade 1 - Symptomatic (dry or thick saliva) without significant dietary alteration; unstimulated saliva flow >2ml/min Fatigue: grade 1 - Fatigue relieved by rest Pain: grade 2 - Moderate pain; limiting instrumental ADL Treatment chart checked: Yes Patient treatment site reviewed and verified:Yes Port films reviewed and current:Yes Medications started: None ASSESSMENT:Clinically stable. Toxicity within expected parameters. Continue radiation treatment as planned. 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 She controls with combination of BMX and Hycet. She also notes dry mouth and altered taste and has transition to a softer diet including boost and Ensure. She has difficulty with liquids as well and has been receiving intermittent IV fluids. She uses a stool softener. She denies any sores or ulcers in the mouth and does the baking soda rinse 10-15 times a day. She has skin erythema without breakdown and use a moisturizer 3 times a day. Last 5 Encounter Wt Readings: Date: Wt: 05/09/2022 62.2 kg (137 lb 3.2 oz) 05/02/2022 62.2 kg (137 lb 3.2 oz) 04/25/2022 64.4 kg (142 lb) 04/18/2022 64.9 kg (143 lb) 04/09/2022 64.9 kg (143 lb) PHYSICAL EXAM: KPS: 90 General Appearance: Alert and oriented. No acute distress. Radiation dermatitis: Mild Mucositis: Moderate Oral cavity and oropharynx: lips and gums normal, oral and pharyngeal mucosa dry Neck: Normal ROM. No palpable cervical or supraclavicular adenopathy; erythema without breakdown IMAGING/LAB RESULTS: None TOXICITY ASSESSMENT (CTCv4): Dysphagia:grade 2 - Symptomatic and altered eating/swallowing Mucositis: grade 2 - Moderate pain; not interfering with oral intake; modified diet indicated Radiation dermatitis: grade 1 - Faint erythema or dry desquamation Trismus: grade 0 - No symptoms Voice Changes:grade 1 - Mild or intermittent change from normal voice Xerostomia: grade 1 - Symptomatic (dry or thick saliva) without significant dietary alteration; unstimulated saliva flow >2ml/min Fatigue: grade 1 - Fatigue relieved by rest Pain: grade 2 - Moderate pain; limiting instrumental ADL Treatment chart checked: Yes Patient treatment site reviewed and verified:Yes Port films reviewed and current:Yes Medications started: None ASSESSMENT:Clinically stable. Toxicity within expected parameters. Continue radiation treatment as planned. Kelvin De La Fuente MD documented in this encounter [facility] 05-03-2022 History of Presen t illness Narrative Oncology Nutrition Therapy Progress Note RECOMMENDED MALNUTRITION DIAGNOSIS: NO MALNUTRITION IDENTIFIED Some elements copied from my note on 04/26/2022, have been updated and all reflect current decision making from today, 05/03/2022 Nutriscore: No Data Recorded Nutrition Intervention: -continue small frequent meals/snacks -aim for soft foods and full liquids -provided sample of [place] chicken soup -start supplementation -boost high protein 3-4x per day -encouraged adequate hydration -pt being set up for IVF 2-3x per week -continue calorie/protein boosting techniques Nutrition Monitoring & Evaluation: -PO Intake -Wt status -Supplement tolerance/acceptance -Biochemical Markers -Plan of care Date of last encounter: April 26, 2022 Patient met goal(s): Partially Patient's symptoms are: Oral: swallowing problems and taste changes Behavioral: altered appetite Pt presents for nutrition counseling follow up. Pt's weight remains stable. Pt currently being treated with RT. Pt c/o swallowing difficulty. Her voice has gotten hoarse. Appetite appears good. Intakes are fair. Nutrition intakes have decreased some over the past week due to swallowing difficulty, pain, taste changes, and some phlegm. She is tolerating eggs and ice cream. Reviewed with pt interventions above and problem solved ways to meet recommendations. Pt verbalized understanding. READINESS TO LEARN Cognitive ability: Alert and oriented Motivation to learn: Interested Family support: Unable to assess - Family not present Instruction provided to: Patient Patient learns best by: Multiple Methods Factors affecting learning: None Physical limitations affecting learning: None Educational materials provided: none this visit Need for Follow up: will continue to follow Referred/Supervised by: Anastasia SIMON Billing Type: Re-assess/15 min 1 unit Billed Time: 15 minutes Signed by: Kim Cortes MS, RDN, LD documented in this encounter [facility] 05-02-2022 History of Presen t illness Narrative Radiation Oncology - On Treatment Review (OTR) Note PATIENT NAME: Manuela Null PATIENT DIAGNOSIS: 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 She also notes that her voice was lost over the weekend. She has transition to a softer diet notes approximate 4 to 5 pound weight loss. She endorses dry mouth and altered taste and has not been drinking much fluids. She does do the baking soda rinse. Skin irritation without breakdown and uses moisturizer 2-3 times a day. She also endorses fatigue. Last 3 Encounter Wt Readings: Date: Wt: 05/02/2022 62.2 kg (137 lb 3.2 oz) 04/25/2022 64.4 kg (142 lb) 04/18/2022 64.9 kg (143 lb) PHYSICAL EXAM: KPS: 90 General Appearance: Alert and oriented. No acute distress. Radiation dermatitis: Mild Mucositis: Mild Oral cavity and oropharynx: lips and gums normal, oral and pharyngeal mucosa dry Neck: Normal ROM. No palpable cervical or supraclavicular adenopathy; erythema without breakdown IMAGING/LAB RESULTS: None TOXICITY ASSESSMENT (CTCv4): Dysphagia:grade 2 - Symptomatic and altered eating/swallowing Mucositis: grade 1 - Asymptomatic or mild symtoms; intervention not indicated Radiation dermatitis: grade 1 - Faint erythema or dry desquamation Trismus: grade 0 - No symptoms Voice Changes:grade 2 - Moderate or persistent change from normal voice; still understandable Xerostomia: grade 1 - Symptomatic (dry or thick saliva) without significant dietary alteration; unstimulated saliva flow >2ml/min Fatigue: grade 1 - Fatigue relieved by rest Pain: grade 2 - Moderate pain; limiting instrumental ADL Treatment chart checked: Yes Patient treatment site reviewed and verified:Yes Port films reviewed and current:Yes Medications started: None ASSESSMENT: Clinically stable. Toxicity within expected parameters. Continue radiation treatment as planned. Given her decreased fluid intake, we will plan for IV fluids today. Kelvin De La Fuente MD documented in this encounter [facility] 04-26-2022 Miscellaneous Notes Patient has been added to Epic. Luda Castle Patient here for radiation stating she discussed with Dr. De La Fuente the option of receiving IV hydration on Saturday and she would like to go ahead and schedule the appt. I spoke to Katelyn Valenzuela RN in infusion and she said she can come down after her radiation therapy. Luda: Will you please add Manuela on for IV hydration in infusion on 04/27 at 9:30 for one hour? 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 She has transition to a softer diet and notes dry mouth and altered taste and is not using the baking soda rinse. She notes mild skin redness without breakdown and uses a moisturizer 3 times a day. She does endorse fatigue especially later in the day with fair appetite and hydration and stable weight. Last 4 Encounter Wt Readings: Date: Wt: 04/25/2022 64.4 kg (142 lb) 04/18/2022 64.9 kg (143 lb) 04/09/2022 64.9 kg (143 lb) 02/02/2022 62.6 kg (138 lb) PHYSICAL EXAM: KPS: 90 General Appearance: Alert and oriented. No acute distress. Radiation dermatitis: Minimal Mucositis: Mild Oral cavity and oropharynx: lips and gums normal, oral and pharyngeal mucosa moist Neck: Normal ROM. No palpable cervical or supraclavicular adenopathy; mild erythema without breakdown IMAGING/LAB RESULTS: None TOXICITY ASSESSMENT (CTCv4): Dysphagia:grade 2 - Symptomatic and altered eating/swallowing Mucositis: grade 1 - Asymptomatic or mild symtoms; intervention not indicated Radiation dermatitis: grade 1 - Faint erythema or dry desquamation Trismus: grade 0 - No symptoms Voice Changes:grade 1 - Mild or intermittent change from normal voice Xerostomia: grade 1 - Symptomatic (dry or thick saliva) without significant dietary alteration; unstimulated saliva flow >2ml/min Fatigue: grade 1 - Fatigue relieved by rest Pain: grade 1 - Mild pain Treatment chart checked: Yes Patient treatment site reviewed and verified:Yes Port films reviewed and current:Yes Medications started: None ASSESSMENT:Clinically stable. Toxicity within expected parameters. Continue radiation treatment as planned. Discussed supplementing with IV hydration should her fluid intake diminished. Kelvin De La Fuente MD documented in this encounter [facility] 04-25-2022 Nurse Note Status: Post-menopausal. documented in this encounter [facility] 04-24-2022 Miscellaneous Notes Manuela is here for her radiation therapy with c/o increasing throat pain. She said she it is difficult to swallow. She is currently using BMX every 6 hours or more frequently due to the pain, and alternating Tylenol with ibuprofen. She said Dr. De La Fuente mentioned prescribing something else with increased pain. Please send prescription to in [place]. Hycet liquid prescription pending your approval if in agreement. Mirna Avendaño LPN documented in this encounter [facility] 04-19-2022 Miscellaneous Notes Pt calls stating MARY was going to send numbing medicine in for her throat and Mounika Pack Has not received it. KIN- please sign BMX Rx. Maranda Estrada RN documented in this encounter [facility] 04-12-2022 History of Presen t illness Narrative Nutrition Therapy Progress Note This visit was performed as a telehealth visit due to the COVID-19 pandemic as an effort to protect patients and minimize exposure. Consent from patient received to conduct visit virtually/telehealth. It required patient-provider interaction for the medical decision making as documented below. RECOMMENDED MALNUTRITION DIAGNOSIS: NO MALNUTRITION IDENTIFIED Some elements copied from my note on 02/16/2022, have been updated and all reflect current decision making from today, 04/12/2022 Nutrition Intervention: -encouraged weight maintenance -continue small frequent meals -encouraged adequate hydration Nutrition Monitoring & Evaluation: -PO Intake -Wt status -Biochemical Markers -Plan of care Date of last encounter: February 16, 2022 Patient met goal(s): Yes Patient's symptoms are: None Pt initially left clinic after RT this morning, missing in person dietitian follow up. Called patient for brief follow up. Pt's weight stable since initial encounter. Pt currently being treated with RT. Pt denies any chewing/swallowing issues. Pt denies any current N/V/D/C. Appetite appears good. Intakes are good. Pt states she is able to consume a variety of foods and currently has no nutrition concerns or questions. Patient notified of next weeks appointment, she verbalized understanding. READINESS TO LEARN Cognitive ability: Alert and oriented Motivation to learn: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 the anterior surface of the vocal cord. Then, using a cup forcep, the lesion was removed in its entirety. There was brief, self-limited bleeding and the patient was awakened and taken to the recovery room in good condition. [facility] Signed and Approved by: DR JOSE ELIAS LUCERO 01/24/2022 07:48:00 [facility] Evaluation note Diagnosis Larynx cancer (HCC)- Primary Malignant neoplasm of larynx, unspecified site [facility] ([facility]) Malignant neoplasm of larynx, unspecified site [facility] Larynx cancer (HCC)- Primary Malignant neoplasm of larynx, unspecified site [facility] Larynx cancer (HCC)- Primary Malignant neoplasm of larynx, unspecified site [facility] Diagnosis Larynx cancer (HCC)- Primary Malignant neoplasm of larynx, unspecified site [facility] Diagnosis Larynx cancer (HCC)- Primary Malignant neoplasm of larynx, unspecified site [facility] Diagnosis Larynx cancer (HCC)- Primary Malignant neoplasm of larynx, unspecified site [facility] Diagnosis Larynx cancer (HCC)- Primary Malignant neoplasm of larynx, unspecified site [facility] Diagnosis Cancer of larynx (HCC)- Primary Malignant neoplasm of larynx, unspecified site [facility] Diagnosis Larynx cancer (HCC)- Primary Malignant neoplasm of larynx, unspecified site [facility] Diagnosis Cancer of larynx (HCC)- Primary Malignant neoplasm of larynx, unspecified site [facility] Diagnosis Larynx cancer (HCC)- Primary Malignant neoplasm of larynx, unspecified site [facility] Diagnosis Larynx cancer (HCC) Malignant neoplasm of larynx, unspecified site [facility] Diagnosis Cancer of larynx (HCC)- Primary Malignant neoplasm of larynx, unspecified site [facility] Diagnosis Larynx cancer (HCC)- Primary Malignant neoplasm of larynx, unspecified site [facility] Diagnosis Larynx cancer (HCC)- Primary Malignant neoplasm of larynx, unspecified site [facility] Diagnosis Larynx cancer (HCC)- Primary Malignant neoplasm of larynx, unspecified site [facility] Diagnosis Larynx cancer (HCC)- Primary Malignant neoplasm of larynx, unspecified site [facility] Diagnostic Procedure Only (Routine) - Pending Review Specialty Diagnoses / Procedures [facility] Referred To Contact XR IMAGING Diagnoses Larynx cancer (HCC) Procedures XR MODIFIED BARIUM SWALLOW W SPEECH THERAPY RADIOLOGIC EXAM SWALLOW FUNCTION CONTRAST STUDY Kelvin De La Fuente MD [address] [place] [address] [place] [address] Xr Imaging Referral ID Status Reason Start Date Expiration Date Visits Requested Visits Authorized [id number] Pending Review Auto-Generat ed Referral 06/11/2022 07/11/2023 1 1 [facility] Summary Purpose Family History No Family History Records FoundNo Family History Records FoundNo Family History Records FoundNo Family History Records Found Advance Directives No Advanced Directives Records FoundNo Advanced Directives Records FoundNo Advanced Directives Records FoundNo Advanced Directives Records Found Reason for Referral Specialty Diagnoses / Procedures Referred By Daniel t Referred To Contact CT IMAGING Diagnoses Larynx cancer (HCC) Procedures CT NECK SOFT TISSUE W IVCON CT SOFT TISSUE NECK W/CONTRAST MATERIAL Kelvin De La Fuente MD [address] [place] [address] [place] [address] Ct Imaging Referral ID Status Reason Start Date Expiration Date Visits Requested Visits Authorized [id number] Authorized Auto-Generat ed Referral 02/08/2022 03/04/2023 1 1 Medications Administered Section Inactive Administered Medications - up to 3 most recent administrations Medication Order MAR Action Action Date Dose Rate Site lactated Ringers INTRAVENOUS, Administer over 1 Hours, ONCE, 1 dose, On Sat04/27/22 at 1130, 1L LR IV over 1 hour New Bag/Syringe/Bottle 04/27/2022 10:00 AM EDT Inactive Administered Medications - up to 3 most recent administrations Medication Order MAR Action Action Date Dose Rate Site lactated ringers 1,000 mL iv bolus 1,000 mL, INTRAVENOUS, at 999 mL/hr, Administer over 1 Hours, ONCE, 1 dose, On Sat05/09/22 at 1100, Per Dr. Shawn Rosas Bag/Syringe/Bottle 05/09/2022 11:10 AM EDT 1,000 mL 999 mL/hr Inactive Administered Medications - up to 3 most recent administrations Medication Order MAR Action Action Date Dose Rate Site lactated ringers 1,000 mL iv bolus 1,000 mL, INTRAVENOUS, at 999 mL/hr, Administer over 1 Hours, ONCE, 1 dose, On Sat05/11/22 at 1000, Per Dr. Shawn Rosas Bag/Syringe/Bottle 05/11/2022 10:44 AM EDT 1,000 mL 999 mL/hr Additional Source Comments INFORMATION SOURCE (unrecogn ized section and content) DATE CREATED AUTHOR 12/07/2021 [facility] DATE CREATED AUTHOR AUTHOR'S ORGANIZ ATION 07/23/2022 [facility] DATE CREATED AUTHOR AUTHOR'S ORGANIZ ATION 05/08/2023 [facility] DATE CREATED AUTHOR AUTHOR'S ORGANIZ ATION 08/06/2023 [facility] EPIC Source Comments (unrecognize d section and content) In the event this informatio n is protected by the Federal Confidentiality of Alcohol and Drug Abuse Patient Records regulations: The Federal rules restrict any use of the information to criminally investigate or prosecute any alcohol or drug abuse patient.[facility] the event this information is protected by the Federal Confidentiality of Alcohol and Drug Abuse Patient Records regulations: The Federal rules restrict any use of the information to criminally investigate or prosecute any alcohol or drug abuse patient.[facility] the event this information is protected by the Federal Confidentiality of Alcohol and Drug Abuse Patient Records regulations: The Federal rules restrict any use of the information to criminally investigate or prosecute any alcohol or drug abuse patient.[facility] the event this information is protected by the Federal Confidentiality of Alcohol and Drug Abuse Patient Records regulations: The Federal rules restrict any use of the information to criminally investigate or prosecute any alcohol or drug abuse patient.[facility] HospitalIn the event this information is protected by the Federal Confidentiality of Alcohol and Drug Abuse Patient Records regulations: The Federal rules restrict any use of the information to criminally investigate or prosecute any alcohol or drug abuse patient.[facility] the event this information is protected by the Federal Confidentiality of Alcohol and Drug Abuse Patient Records regulations: The Federal rules restrict any use of the information to criminally investigate or prosecute any alcohol or drug abuse patient.[facility] the event this information is protected by the Federal Confidentiality of Alcohol and Drug Abuse Patient Records regulations: The Federal rules restrict any use of the information to criminally investigate or prosecute any alcohol or drug abuse patient.[facility] HospitalIn the event this information is protected by the Federal Confidentiality of Alcohol and Drug Abuse Patient Records regulations: The Federal rules restrict any use of the information to criminally investigate or prosecute any alcohol or drug abuse patient.[facility] HospitalIn the event this information is protected by the Federal Confidentiality of Alcohol and Drug Abuse Patient Records regulations: The Federal rules restrict any use of the information to criminally investigate or prosecute any alcohol or drug abuse patient.[facility] HospitalIn the event this information is protected by the Federal Confidentiality of Alcohol and Drug Abuse Patient Records regulations: The Federal rules restrict any use of the information to criminally investigate or prosecute any alcohol or drug abuse patient.[facility] HospitalIn the event this information is protected by the Federal Confidentiality of Alcohol and Drug Abuse Patient Records regulations: The Federal rules restrict any use of the information to criminally investigate or prosecute any alcohol or drug abuse patient.[facility] HospitalIn the event this information is protected by the Federal Confidentiality of Alcohol and Drug Abuse Patient Records regulations: The Federal rules restrict any use of the information to criminally investigate or prosecute any alcohol or drug abuse patient.[facility] HospitalIn the event this information is protected by the Federal Confidentiality of Alcohol and Drug Abuse Patient Records regulations: The Federal rules restrict any use of the information to criminally investigate or prosecute any alcohol or drug abuse patient.[facility] HospitalIn the event this information is protected by the Federal Confidentiality of Alcohol and Drug Abuse Patient Records regulations: The Federal rules restrict any use of the information to criminally investigate or prosecute any alcohol or drug abuse patient.[facility] HospitalIn the event this information is protected by the Federal Confidentiality of Alcohol and Drug Abuse Patient Records regulations: The Federal rules restrict any use of the information to criminally investigate or prosecute any alcohol or drug abuse patient.[facility] HospitalIn the event this information is protected by the Federal Confidentiality of Alcohol and Drug Abuse Patient Records regulations: The Federal rules restrict any use of the information to criminally investigate or prosecute any alcohol or drug abuse patient.[facility] HospitalIn the event this information is protected by the Federal Confidentiality of Alcohol and Drug Abuse Patient Records regulations: The Federal rules restrict any use of the information to criminally investigate or prosecute any alcohol or drug abuse patient.[facility] HospitalIn the event this information is protected by the Federal Confidentiality of Alcohol and Drug Abuse Patient Records regulations: The Federal rules restrict any use of the information to criminally investigate or prosecute any alcohol or drug abuse patient.[facility] HospitalIn the event this information is protected by the Federal Confidentiality of Alcohol and Drug Abuse Patient Records regulations: The Federal rules restrict any use of the information to criminally investigate or prosecute any alcohol or drug abuse patient.[facility] HospitalIn the event this information is protected by the Federal Confidentiality of Alcohol and Drug Abuse Patient Records regulations: The Federal rules restrict any use of the information to criminally investigate or prosecute any alcohol or drug abuse patient.[facility] HospitalIn the event this information is protected by the Federal Confidentiality of Alcohol and Drug Abuse Patient Records regulations: The Federal rules restrict any use of the information to criminally investigate or prosecute any alcohol or drug abuse patient.[facility] HospitalIn the event this information is protected by the Federal Confidentiality of Alcohol and Drug Abuse Patient Records regulations: The Federal rules restrict any use of the information to criminally investigate or prosecute any alcohol or drug abuse patient.[facility] HospitalIn the event this information is protected by the Federal Confidentiality of Alcohol and Drug Abuse Patient Records regulations: The Federal rules restrict any use of the information to criminally investigate or prosecute any alcohol or drug abuse patient.[facility] HospitalIn the event this information is protected by the Federal Confidentiality of Alcohol and Drug Abuse Patient Records regulations: The Federal rules restrict any use of the information to criminally investigate or prosecute any alcohol or drug abuse patient.[facility] HospitalIn the event this information is protected by the Federal Confidentiality of Alcohol and Drug Abuse Patient Records regulations: The Federal rules restrict any use of the information to criminally investigate or prosecute any alcohol or drug abuse patient.[facility] HospitalIn the event this information is protected by the Federal Confidentiality of Alcohol and Drug Abuse Patient Records regulations: The Federal rules restrict any use of the information to criminally investigate or prosecute any alcohol or drug abuse patient.[facility] HospitalIn the event this information is protected by the Federal Confidentiality of Alcohol and Drug Abuse Patient Records regulations: The Federal rules restrict any use of the information to criminally investigate or prosecute any alcohol or drug abuse patient.[facility] HospitalIn the event this information is protected by the Federal Confidentiality of Alcohol and Drug Abuse Patient Records regulations: The Federal rules restrict any use of the information to criminally investigate or prosecute any alcohol or drug abuse patient.[facility] HospitalIn the event this information is protected by the Federal Confidentiality of Alcohol and Drug Abuse Patient Records regulations: The Federal rules restrict any use of the information to criminally investigate or prosecute any alcohol or drug abuse patient.[facility] HospitalIn the event this information is protected by the Federal Confidentiality of Alcohol and Drug Abuse Patient Records regulations: The Federal rules restrict any use of the information to criminally investigate or prosecute any alcohol or drug abuse patient.[facility] HospitalIn the event this information is protected by the Federal Confidentiality of Alcohol and Drug Abuse Patient Records regulations: The Federal rules restrict any use of the information to criminally investigate or prosecute any alcohol or drug abuse patient.[facility] HospitalIn the event this information is protected by the Federal Confidentiality of Alcohol and Drug Abuse Patient Records regulations: The Federal rules restrict any use of the information to criminally investigate or prosecute any alcohol or drug abuse patient.[facility] HospitalIn the event this information is protected by the Federal Confidentiality of Alcohol and Drug Abuse Patient Records regulations: The Federal rules restrict any use of the information to criminally investigate or prosecute any alcohol or drug abuse patient.[facility] Reason for Visit (unrecogniz ed section and content) Reason Comments Patient Education Reason Comments Consult Reason Comments Nutrition Assessment Reason Onset Date Comments Simulation Request Form 02/19/2022 Reason Comments Patient Question Reason Comments Benefits Investigation Reason Comments Nutrition Telephone Reason Comments Radiotherapy On-treatment Visit Reason Comments Sore Throat Reason Comments Patient Update Reason Comments Nutrition Counseling Reason Onset Date Comments Refill Request 05/11/2022 Reason Comments Infusion Reason Comments Laryngeal Cancer Reason Onset Date Comments Refill Request 05/31/2022 Reason Comments Head and Neck Cancer Reason Comments Records faxed/Disability Reason Comments Post Radiation Treatment Follow Up Care Teams (unrecognized sec tion and content) Gallery Host Relationship Specialty Start Date End Date Anatoliy Tamayo, DO [address] [place] [address] PCP - General Family Practice 01/31/22 Gallery Host Relationship Specialty Start Date End Date Anatoliy Tamayo, DO [address] [place] [address] PCP - General Family Practice 01/31/22 Gallery Host Relationship Specialty Start Date End Date Anatoliy Tamayo, DO [address] [place] [address] PCP - General Family Practice 01/31/22 Gallery Host Relationship Specialty Start Date End Date Anatoliy Tamayo, DO [address] [place] [address] PCP - General Family Practice 01/31/22 Gallery Host Relationship Specialty Start Date End Date Anatoliy Tamayo, DO [address] [place] [address] PCP - General Family Practice 01/31/22 Gallery Host Relationship Specialty Start Date End Date FrantzloAnatoliy mohamud, DO [address] [place] [address] PCP - General Family Practice 01/31/22 Shantelle Danielson LSW Refrigeration Lead 04/05/22 Gallery Host Relationship Specialty Start Date End Date FurloAnatoliy mohamud, DO [address] [place] [address] PCP - General Family Practice 01/31/22 Shantelle Danielson LSW Refrigeration Lead 04/05/22 Gallery Host Relationship Specialty Start Date End Date FrantzloAnatoliy mohamud, DO [address] [place] [address] PCP - General Family Practice 01/31/22 Shantelle Danielson LSW Refrigeration Lead 04/05/22 Gallery Host Relationship Specialty Start Date End Date FrantzloAnatoliy mohamud, DO [address] [place] [address] PCP - General Family Practice 01/31/22 Shantelle Danielson DISPLAY ASSOCIATE Refrigeration Lead 04/05/22 Gallery Host Relationship Specialty Start Date End Date FrantzloAnatoliy mohamud, DO [address] [place] [address] PCP - General Family Practice 01/31/22 Shantelle Danielson LSW Refrigeration Lead 04/05/22 Gallery Host Relationship Specialty Start Date End Date FurloAnatoliy mohamud, DO [address] [place] [address] PCP - General Family Practice 01/31/22 Shantelle Danielson LSW Refrigeration Lead 04/05/22 Gallery Host Relationship Specialty Start Date End Date FrantzloAnatoliy mohamud, DO [address] [place] [address] PCP - General Family Practice 01/31/22 Shantelle Danielson LSW Refrigeration Lead 04/05/22 Gallery Host Relationship Specialty Start Date End Date FrantzloAnatoliy mohamud, DO [address] [place] [address] PCP - General Family Practice 01/31/22 Shantelle Danielson LSW Refrigeration Lead 04/05/22 Gallery Host Relationship Specialty Start Date End Date Frantzlooneida Anatoliyania Neely, DO [address] [place] [address] PCP - General Family Practice 01/31/22 Shantelle Danielson LSW Refrigeration Lead 04/05/22 Gallery Host Relationship Specialty Start Date End Date FrantzloAnatoliy mohamud, DO [address] [place] [address] PCP - General Family Practice 01/31/22 Shantelle Danielson DISPLAY ASSOCIATE Refrigeration Lead 04/05/22 Gallery Host Relationship Specialty Start Date End Date FrantzloAnatoliy mohamud, DO [address] [place] [address] PCP - General Family Practice 01/31/22 Shantelle Danielson LSW Refrigeration Lead 04/05/22 Gallery Host Relationship Specialty Start Date End Date Frantzlooneida Anatoliyania Neely, DO [address] [place] [address] [place] [address] PCP - General Family Practice 01/31/22 Shantelle Danielson, DISPLAY ASSOCIATE Refrigeration Lead 04/05/22 Gallery Host Relationship Specialty Start Date End Date Anatoliy Tamayo, DO [address] [place] [address] PCP - General Family Medicine 01/31/22 Shantelle Danielson, DISPLAY ASSOCIATE Refrigeration Lead 04/05/22 Gallery Host Relationship Specialty Start Date End Date Anatoliy Tamayo, DO [address] [place] [address] PCP - General Family Medicine 01/31/22 Shantelle Danielson, DISPLAY ASSOCIATE Refrigeration Lead 04/05/22 Gallery Host Relationship Specialty Start Date End Date Anatoliy Tamayo, DO [address] [place] [address] PCP - General Family Medicine 01/31/22 Shantelle Danielsno, [facility] Refrigeration Lead 04/05/22 Gallery Host Relationship Specialty Start Date End Date Anatoliy Tamayo, DO [address] [place] [address] PCP - General Family Medicine 01/31/22 Shantelle Danielson, [facility] Refrigeration Lead 04/05/22 Gallery Host Relationship Specialty Start Date End Date Belkis Anatoliyania Neely DO [address] [place] [address] PCP - General Family Medicine 01/31/22 Shantelle Danielson, [facility] Refrigeration Lead 04/05/22 Gallery Host Relationship Specialty Start Date End Date Frantzrosy Anatoliy Neely [address] [place] [address] PCP - General Family Medicine 01/31/22 Shantelle Danielson LSW Refrigeration Lead 04/05/22 FOR RECORDS PERTAINING TO PATIENTS WHO ARE OR HAVE BEEN ENROLLED IN A CHEMICAL DEPENDENCY/SUBSTANCEABUSE PROGRAM, SOME INFORMATION MAY BE OMITTED. This clinical summary was aggregated from multiple sources. Caution should be exercised in using it in the provision of clinical care. This summary normalizes information from multiple sources, and as a consequence, information in this document may materially change the coding, format and clinical context of patient data. In addition, data may be omitted in some cases. CLINICAL DECISIONS SHOULD BE BASED ON THE PRIMARY CLINICAL RECORDS. [facility]. provides no warranty or guarantee of the accuracy or completeness of information in this document.
== END 2023-07-24 10:26 | disposition home or self-care (01) ==
LOC: MAMMO 10:25
PROVIDERS: PCP Nurse Practitioner Family; Visit Provider Nurse Practitioner Family
DX: Z12.31 Encounter for screening mammogram for malignant neoplasm of breast (principal); Z80.1 Family history of malignant neoplasm of trachea, bronchus and lung
CPT/HCPCS: 77063; 77067

== ENCOUNTER 2024-10-23 13:57 | Outpatient (OUT) | payer OTHER, SELFPAY ==
--- OUTSIDE RECORDS SUMMARY | 2024-10-23 14:16 | XMS_ITS | CCD ---
Author Organization [facility] Care Team Providers Care Pony Worker Name Role Phone Anatoliy Tamayo DO Primary Care Provider Jagjit CLEARY, Shantelle Unavailable [...] KUNS, DR SHIRLENE Mancera Primary Care Unavailable WEST, DR SHARONA Lopez Consulting Unavailable KUNS, DR SHIRLENE Mancera Consulting Unavailable TIMMIS, DR MOCTEZUMA Admitting Unavailable TIMMIS, DR MOCTEZUMA Attending Unavailable KUNS, DR SHIRLENE Mancera Primary Care Unavailable TIMMIS, DR MOCTEZUMA Consulting Unavailable Anatoliy Tamayo DO Primary Care Provider Jagjit CLEARY, Shantelle Unavailable Unavailable Mxa SOLAR PHOTOVOLTAIC DESIGNER-Shirlene RAMOS Primary Care Provider Anatoliy Tamayo MD Primary Care Provider SHIRLENE FINN Referring Unavailable MAX, SHIRLENE Mancera Primary Care Unavailable Anatoliy Tamayo DO Primary Care Provider ANATOLIY TAMAYO Primary Care Unavailab KELVIN Li Referring Unavailable KELVIN DE LA FUENTE Attending Unavailable Rupesh PEREZ-PLAN EXAMINERRogers Primary Care Provid er SHIRLENE FINN Attending Unavailable SHIRLENE FINN Referring Unavailable SHIRLENE FINN Primary Care Unavailable ROGERS GODDARD Attending Unavailable SHIRLENE FINN Referring Unavailable ROGERS GODDARD Primary Care Unavailable SHIRLENE FINN Attending Unavailable SHIRLENE FINN Referring Unavailable SHIRLENE FINN Primary Care Unavailable ROGERS GODDARD Attending Unavailable ROGERS GODDARD Referring Unavailable ROGERS GODDARD Primary Care Unavailable TIMMIS, JOSE ELIAS H Attending Unavailable TIMMIS, JOSE ELIAS H Attending Unavailable TIMMIS, JOSE ELIAS H Attending Unavailable TIMMIS, JOSE ELIAS H Attending Unavailable TIMMIS, JOSE ELIAS H Attending Unavailable TIMMIS, JOSE ELIAS H Attending Unavailable Allergies Allergy Classification Reported Allergen(s) Allergy Type Date of Onset Reaction(s) Facility (20 sources) moxifloxacin; Translations: [MOXIFLOXACIN] Drug Allergy 2 Hives, Angioedema [facility] (2 sources) moxifloxacin Drug Allergy [facility] Repository Medications Current Medications Medication Drug Class(es) Dates Sig (Normalized) Sig (Original) acetaminophen 325 mg / butalbital 50 mg / caffeine 40 mg / codeine phosphate 30 mg oral capsule (20 sources) Opioid Agonist, Barbiturate, Central Nervous System Stimulant, Methylxanthine Start: 09-17-2024 End: 09-17-2024 take 1 capsule by mouth once as needed butalbital-aceta tdzpo-ayn-sjf (FIORICET WITH CODEINE) 49-292-23-30 mg per capsule Indications: Chronic neck and back pain Take 1 capsule by mouth every 12 (twelve) hours as needed for headaches. 42 capsule 2 09/17/2024 Active Start: 04-21-2024 End: 06-22-2024 take 1 capsule by mouth once as needed yqnpmjwegl-effuuxoxti-tcc-cod (FIORICET WITH CODEINE) 53-569-25-30 mg per capsule Indications: Chronic neck and back pain Take 1 capsule by mouth every 12 (twelve) hours as needed for headaches. 42 capsule 2 06/22/2024 Active Start: 08-02-2023 End: 12-01-2023 take 1 capsule by mouth every four hours as needed for headache rjcgmymukh-lwamqnmehv-ojk-cod (FIORICET WITH CODEINE) 22-713-98-30 mg per capsule Indications: Chronic neck and back pain Take 1 capsule by mouth every 4 (four) hours as needed for headaches. 42 capsule 2 12/01/2023 Active take 1 capsule by mo uth twice daily Zmtoealnjj-Hrr-Azwaewtjwe-Caf 50-325-40- 30 mg per capsule butalbital 50 mg-acetaminophen 325 mg-caffeine 40 mg-codeine 30 mg cap take 1 capsule by mouth twice a day Active Comment on above: butalbital 50 mg-jersey taminophen 325 mg-caffeine 40 mg-codeine 30 mg cap take 1 capsule by mouth twice a day cholecalciferol 0.05 mg oral capsule (20 sources) Vitamin D Start: 024 take 1 capsule by mouth once in the morning cholecalciferol, vitamin D3, (D3-2000) 2,000 units capsule Indications: Vitamin D deficiency Take 1 capsule (2,000 Units total) by mouth in the morning. 90 capsule 3 04/21/2024 Active Start: 12-09-2022 End: 12-21-2023 take 1 capsule by mouth once daily in the morning D3-2000 50 mcg (2,000 unit) capsule Indications: Vitamin D deficiency take 1 capsule by mouth every morning 90 capsule 3 12/21/2023 Active Comment on above: Vitamin D3 50 mcg (2 ,000 unit) capsule take 1 capsule by mouth once daily cyclobenzaprine hydrochloride 10 mg oral tablet (20 sources) Muscle Relaxant Start: 04-21-20 24 take 1 tablet by mouth twice daily as needed for muscle spasms cyclobenzaprine (FLEXERIL) 10 mg tablet Indications: Chronic bilateral low back pain without sciatica Take 1 tablet (10 mg total) by mouth 2 (two) times a day as needed for muscle spasms. 30 tablet 5 04/21/2024 Active Start: 04-26-2023 End: 10-15-2023 take 1 tablet by mouth twice daily for muscle spasms cyclobenzaprine (FLEXERIL) 10 mg tablet Indications: Chronic bilateral low back pain without sciatica take 1 tablet by mouth twice a day if needed for muscle spasm 30 tablet 5 10/15/2023 Active Start: 01-15-2022 take 1 tablet by farida once daily at bedtime cyclobenzaprine (FLEXERIL) 10 mg tablet Take 10 mg by mouth daily at bedtime. 01/15/2022 Active Comment on above: Take 10 mg by mouth daily at bedtime. 168 hr estradiol 0.20602 mg/hr transdermal system (20 sources) Estrogen Start: 04-21-2024 estradioL (CLIMARA) 0.05 mg/[address] 1 patch on the skin once a week. 4 patch 11 04/21/2024 Active Start: 05-20-2023 End: 11-09-2023 estradioL (CLIMARA) 0.05 mg/ 24 hr apply patch every week 4 patch 11 11/09/2023 Active estradiol (Vivel le-DOT) 0.05 MG/24HR Place 1 patch on the skin 1 (one) time per week. Active Comment on above: estradiol 0.05 mg/24 hr weekly transdermal patch apply 1 patch every week as directed FLUoxetine 20 mg oral capsule (20 sources) Serotonin Reuptake Inhibitor Start: take 1 capsule by mouth once daily in the morning FLUoxetine (PROzac) 20 mg capsule Indications: Generalized anxiety disorder Take 1 capsule (20 mg total) by mouth every morning. 90 capsule 1 04/21/2024 Active Start: 06-28-2023 End: 12-19-2023 take 1 capsule by mouth once daily FLUoxetine (PROzac) 20 mg capsule take 1 capsule by mouth once daily 90 capsule 1 12/19/2023 Active Comment on above: fluoxetine 20 mg cap shilpi take 1 capsule by mouth once daily fluticasone propionate 0.05 mg/actuat metered dose nasal spray (20 sources) Corticosteroid Start: 04-21-20 take 2 spray(s) nasal route in the morning fluticasone propionate (FLONASE) 50 mcg/actuation nasal spray Indications: Allergic rhinitis due to pollen, unspecified seasonality Administer 2 sprays into each nostril in the morning. 48 g 3 04/21/2024 Active Start: 12-06-2022 End: 11-30-2023 take 1 spray(s) nasal route once daily fluticasone propionate (FLONASE) 50 mcg/actuation nasal spray USE 1 SPRAY NASALLY DAILY 16 g 5 11/30/2023 Active take 1 spray(s) nasa l route in the morning fluticasone (Flonase) 50 MCG/ACT nasal spray Administer 1 spray into each nostril in the morning. Active take 1 spray(s) nasa l route once daily fluticasone (FLONASE) 50 mcg/actuation nasal spray fluticasone propionate 50 mcg/actuation nasal spray,suspension USE 1 SPRAY NASALLY DAILY Active Comment on above: fluticasone propiona te 50 mcg/actuation nasal spray,suspension USE 1 SPRAY NASALLY DAILY LORazepam 0.5 mg oral tablet (20 sources) Benzodiazepine End: 06-19-20 take 1 tablet by mouth once daily as needed LORazepam (Ativan) 0.5 MG tablet Take 0.5 mg by mouth 1 (one) time each day at the same time. prn 0 Active Comment on above: Take 1 tablet by farida th at bedtime as needed. meclizine hydrochloride 25 mg oral tablet (20 sources) Antiemetic Start: 04-21-20 End: 08-04-20 take 1 tablet by mouth once daily as needed for dizziness meclizine (ANTIVERT) 25 mg tablet Indications: Vertigo Take 1 tablet (25 mg total) by mouth daily as needed for dizziness. 90 tablet 08/04/2024 Active Start: 03-25-2023 End: 09-25-2023 take 1 tablet by mouth once daily for dizziness meclizine (ANTIVERT) 25 mg tablet TAKE 1 TABLET BY MOUTH ONCE DAILY IF NEEDED FOR DIZZINESS 30 tablet 5 09/25/2023 Active Meclizine HCl 25 MG chewable tablet 1 (one) time each day at the same time. Active Comment on above: meclizine 25 mg tabl et take 1 tablet by mouth once daily if needed omeprazole 40 mg delayed release oral capsule (20 sources) Proton Pump Inhibitor Start: 01-24-20 End: 10-31-19 take 1 capsule by mouth in the morning omeprazole (PRILOSEC) 40 mg capsule take 1 capsule by mouth IN THE MORNING 30 MINUTES TO 1 HOUR PRIOR TO EATING breakfast 01/23/2022 Active Comment on above: take 1 capsule by mo [facility] IN THE MORNING 30 MINUTES TO 1 HOUR PRIOR TO EATING breakfast spironolactone 25 mg oral tablet (20 sources) Aldosterone Antagonist Start: 04-21-20 take 1 tablet by mouth once daily in the morning spironolactone (ALDACTONE) 25 mg tablet Indications: Rosacea Take 1 tablet (25 mg total) by mouth every morning. 90 tablet 1 04/21/2024 Active Start: 12-22-2023 take 1 tablet by farida th once daily spironolactone (ALDACTONE) 25 mg tablet take 1 tablet by mouth once daily 90 tablet 1 12/22/2023 Active Start: 07-10-2023 End: 12-22-2023 spironolactone (ALDACTONE) 2 5 mg tablet TAKE 1 TABLET BY MOUTH ONE DAILY 90 tablet 1 07/10/2023 12/22/2023 Discontinued Comment on above: spironolactone 25 mg tablet TAKE 1 TABLET BY MOUTH ONE DAILY Completed/Discontinued Medications Medication Drug Class(es) Dates Sig (Normalized) Sig (Original) acetaminophen 21.7 mg/ml / HYDROcodone bitartrate 0.5 mg/ml oral solution (17 sources) Opioid Agonist Start: 04-24-2022 End: 08-28-2022 take 10 mL by mouth every six hours as needed for pain HYDROcodone-acetamin ophen (HYCET) 7.5-325 mg/15 mL oral liquid Indications: [...] Take with stool softener to avoid constipation. diphenhydrAMINE 12.5 mg/5 mL lidocaine visc 2% [...] discomfort including before meals and before bedtime diphenhydrAMINE-maalox -lidocaine (BMX 1:1:1) 1:1:1 liqd (2 sources) Start : 04-19 take 10 mL by mouth every six hours as needed diphenhydrAMINE-maalo x-lidocaine (BMX 1:1:1) 1:1:1 liqd Take 10 mL by mouth every 6 hours as needed. 180 mL 2 04/19/2022 Active Comment on above: Take 10 mL by mouth every 6 hours as needed. famotidine 20 mg oral tablet (20 sources) Histamine-2 Receptor Antagonist Start : 01-23 End: 10-31 take 1 tablet by mouth once daily at bedtime famotidine (PEPCID) 20 mg tablet Take 20 mg by mouth daily at bedtime. 01/23/2022 06/19/2022 Discontinued (Discontinued by another Health Care Provider) Comment on above: Take 20 mg by mouth daily at bedtime. iv contrast (will be provided with radiology test) (1 source) Start : 02-02 End: 02-02 inject 1 dose intravenously once, then inject [...] in the CT contrast administration guidelines link. linaclotide 0.145 mg oral capsule (4 sources) Guanylate Cyclase-C Agonist End: 10-31 linaCLOtide (LINZESS) 145 mcg capsule prochlorperazine 10 mg oral tablet (4 sources) Phenothiazine Start : 06-11 End: 05-06 take 1 tablet by mouth at mealtime as needed prochlorperazine (COMPAZINE) 10 mg tablet Take 1 tablet by mouth as directed. 30 minutes prior to meals as needed 30 tablet 0 06/11/2022 05/06/2023 Discontinued (Course of therapy completed) Comment on above: Take 1 tablet by farida as directed. 30 minutes prior to meals as needed sennosides, residential 1.76 mg/ml oral solution (17 sources) Start : 05-03 End: 05-06 take 10 mL by mouth once daily at bedtime for diarrhea sennosides (SENNA) 8.8 mg/5 mL oral liquid Take 10 mL by mouth daily at bedtime. Use while taking pain medication and hold for loose bowel movements/diarrhea. 237 mL 1 05/03/2022 05/06/2023 Discontinued (Course of therapy completed) Sennosides (Erick a) 8.6 MG capsule Senna 0 Active Comment on above: Take 10 mL by mouth daily at bedtime. Use while taking pain medication and hold for loose bowel movements/diarrhea. Problems Active Problems Problem Classification Problem Date Documented Da te Episodic/Chronic Anxiety disorders (1 source) Generalized anxiety disorder; Translations: [Generalized anxiety disorder] Onset: 04-21-2024 Chronic Cancer of head and neck (20 sources) Malignant tumor of larynx; Translations: [Malignant neoplasm of larynx, unspecified] Onset: 01-26-2022 Chronic Nutritional deficiencies (2 sources) Vitamin D deficiency; Translations: [Vitamin D deficiency, unspecified] Onset: 04-21-2024 12-21-2023 Chronic Other aftercare (1 source) Drug therapy finding; Translations: [Other terminal superintendent (current) drug therapy] 10-31-2023 Episodic Other inflammatory condition of skin (1 source) Rosacea, unspecified; Translations: [Rosacea, unspecified] Onset: 06-18-2022 Chronic Other nervous system disorders (20 sources) Neuropathy; Translations: [Polyneuropathy, unspecified] Onset: 07-29-2017 06-18-2022 Chronic Other nervous system disorders (1 source) Other chronic pain; Translations: [Other chronic pain] Onset: 12-24-2022 Chronic Other screening for suspected conditions (not mental disorders or infectious disease) (2 sources) Encounter for screening mammogram for malignant neoplasm of breast; Translations: [Patient encounter status] Onset: 07-23-2022 11-21-2023 Episodic Other upper respiratory disease (1 source) Allergic rhinitis due to pollen; Translations: [Allergic rhinitis due to pollen] Onset: 04-21-2024 Chronic Residual codes; unclassified (1 source) Family history of malignant neoplasm of trachea, bronchus and lung; Translations: [FAM HX MALIG NEOPLSM TRACH BRON LNG] Onset: 07-23-2022 Episodic Residual codes; unclassified (1 source) Flushing; Translations: [Flushing] 10-31-2023 Episodic Thyroid disorders (4 sources) Disorder of thyroid, unspecified; Translations: [DISORDER OF THYROID UNSPECIFIED] Onset: 07-18-2022 Episodic Unclassified (1 source) Low back pain, unspecified; Translations: [Low back pain, unspecified] Onset: 12-24-2022 Unclassified (1 source) Controlled Substance Onset: 01-31-2024 Past or Other Problems Problem Classification Problem Date Documented Da te Episodic/Chronic Conditions associated with dizziness or vertigo (2 sources) Vertigo; Translations: [Dizziness and giddiness] Onset: 04-21-2024 08-04-2024 Episodic Malaise and fatigue (20 sources) Fatigue; Translations: [Other fatigue] Onset: 06-18-2022 Resolved: 03-26-2023 06-18-2022 Episodic Mood disorders (16 sources) Mood disorders Onset: 07-08-2023 Resolved: 08-04-2024 07-08-2023 Other aftercare (3 sources) Other terminal superintendent (current) drug therapy; Translations: [OTH ANIMAL HUSBANDRY WORKER CURRENT DRUG THERAPY] Onset: 01-26-2022 Episodic Other fractures (20 sources) Fracture of lumbar spine; Translations: [Unspecified fracture of unspecified lumbar vertebra, initial encounter for closed fracture] Onset: 06-18-2022 Resolved: 03-26-2023 06-18-2022 Episodic Other fractures (20 sources) Fracture of pelvis; Translations: [Fracture of unspecified parts of lumbosacral spine and pelvis, initial encounter for closed fracture] Onset: 06-18-2022 Resolved: 03-26-2023 06-18-2022 Episodic Other inflammatory condition of skin (20 sources) Rosacea; Translations: [Rosacea, unspecified] Onset: 06-18-2022 Resolved: 03-26-2023 06-18-2022 Chronic Other injuries and conditions due to external causes (16 sources) 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; Translations: [Injury of optic nerve, unspecified eye, initial encounter] Onset: 12-24-2022 12-24-2022 Episodic Other injuries and conditions due to external causes (10 sources) Injury of optic nerve, unspecified eye, initial encounter; Translations: [Optic nerve injury] Onset: 12-24-2022 12-24-2022 Episodic Other skin disorders (20 sources) Actinic keratosis; Translations: [Actinic keratosis] Onset: 06-18-2022 Resolved: 03-26-2023 06-18-2022 Episodic Other upper respiratory disease (4 sources) Other diseases of vocal cords; Translations: [OTHER DISEASES OF VOCAL CORDS] Onset: 01-17-2022 Episodic Other upper respiratory disease (1 source) Dysphonia; Translations: [DYSPHONIA] Onset: 01-26-2022 Episodic Other upper respiratory disease (20 sources) Dysphonia; Translations: [Dysphonia] Onset: 06-18-2022 06-18-2022 Episodic Residual codes; unclassified (2 sources) Flushing; Translations: [Flushing] Onset: 10-31-2023 Episodic Screening and history of mental health and substance abuse codes (1 source) Personal history of nicotine dependence; Translations: [PERSONAL HISTORY OF NICOTINE DEPEND] Onset: 01-26-2022 Episodic Spondylosis; intervertebral disc disorders; other back problems (20 sources) Chronic back pain ; Translations: [Dorsalgia, unspecified] Onset: 06-18-2022 Resolved: 03-26-2023 06-18-2022 Episodic Results Test Name Value Interpretation Reference Range Facility [facility] 05-04-2024 CNOV Office Visit (RADTSA ) MANUELA NULL ([id number]) 1960 F Date Time Provider Department 05/04/24 10:00 AM KELVIN DE LA FUENTE During your visit today, we recorded the following information about you: Temperature Pulse Respiration Blood pressure 96.7 degrees 111/minute 16/minute 128/86 Weight 66.2 kg Kelvin De La Fuente MD 05/25/2024 10:37 PM Signed Radiation Oncology - Follow Up Note PATIENT NAME: Manuela Null PATIENT DIAGNOSIS/PATIENT IDENTIFICATION: Ms. 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 INTERVAL HISTORY/ROS: Ms. Null returns to clinic today for routine follow-up approximately two years after the completion of her radiation treatments and one year since her last visit on 05/06/2023. In the interim, she met with Dr. Lucero earlier this month on 04/20/2024 with no concerns on head and neck examination for disease recurrence. Today she reports doing well and denies any pain/discomfort in the throat except for some occasional soreness on the outside. She reports intact skin without breakdown and no new lumps or bumps in the head and neck area. She reports good use of her voice but can fatigue with extended use. She denies any cough or trouble breathing or difficulty swallowing. She reports no sores or ulcers in the mouth or any dry mouth with intact taste. She endorses good energy appetite and hydration with stable weight. She has some chronic back pain issues but otherwise denies any recent fevers, chills, headaches, difficulty with speech/swallowing, shortness of breath, chest pain/palpitations, abdominal pain, nausea, vomiting, change in bowel/urinary habits, difficulty with gait/balance, recent falls, etc. The remainder of the review of systems was performed and was otherwise noncontributory. ALLERGIES ALLERGIES Allergen Reactions Moxifloxacin Hives, Angioedema MEDICATIONS: Current Outpatient Medications: omeprazole (PRILOSEC) 40 mg capsule cyclobenzaprine (FLEXERIL) 10 mg tablet Cholecalciferol, Vitamin D3, 50 mcg (2,000 unit) cap estradiol (CLIMARA) 0.05 mg/24 hr FLUoxetine (PROZAC) 20 mg capsule fluticasone (FLONASE) 50 mcg/actuation nasal spray meclizine (ANTIVERT) 25 mg tab spironolactone (ALDACTONE) 25 mg tablet Sckoitgnva-Uls-Uzzbyg inop-Caf 00-024-61-30 mg per capsule PHYSICAL EXAM: GENERAL: middle-aged woman sitting in chair in no acute distress. VITALS: BP 128/86 Pulse 111 Temp 96.7 Resp 16 Wt 145 lb 15.1 oz (66.2kg) SpO2 98% KPS: 90 HEENT: NC/AT, anicteric sclera HEART: S1S2 LUNGS: non-labored breathing ABDOMEN: soft MUSCULOSKELETAL: no peripheral edema, moves all extremities. NEURO: no focal deficit; AANDO X3. ASSESSMENT AND PLAN: Ms. 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 Ms. Null is doing well clinically approximately 2 years after the completion of her radiation treatments to the larynx with no significant results sequela at this time. Recent examination by Dr. Lucero earlier this month on 04/20/2023 was without concern for disease recurrence on head and neck examination. She will continue her scheduled follow-up with Dr. Lucero and I will plan to see her back in approximately 1 year. The patient is aware to contact the clinic in the interim should any questions or concerns arise. Thank you for allowing us to participate in the care of this patient. Signed by: Kelvin De La Fuente MD I spent a total of 20 minutes on the date of the service which included preparing to see the patient, [id number] patient care, and counseling and educating the patient/family/caregi rusty. This document has been created with the use of voice recognition technology. It may contain inaccuracies, misspellings, inaccurate syntax or inappropriate word context that are a result of the inadequacies/shortcom ings of said technology/software. Referring Provider: KELVIN DE LA FUENTE [[id number]] Allergies As of Date: 05/04/2024 Noted Allergy Reaction MOXIFLOXACIN 02/02/2022 4 - Hives 18 - Angioedema Date Reviewed: 05/04/2024 Reviewed by: Maranda Estrada RN - Fully Assessed Reason for Visit: Head and Neck Cancer [551] Primary Visit Diagnosis:Larynx cancer (HCC) [C32.9] Prescriptions as of 05/25/2024 - omeprazole (PRILOSEC) 40 mg capsule take 1 capsule by mouth IN THE MORNING 30 MINUTES TO 1 HOUR PRIOR TO EATING breakfast - cyclobenzaprine (FLEXERIL) 10 mg tablet Take 10 mg by mouth daily at bedtime. - Cholecalciferol, Vitamin D3, 50 mcg (2,000 unit) cap Vitamin D3 50 mcg (2,000 unit) capsule take 1 capsule by mouth once daily - estradiol (CLIM (more content not included)... Normal [facility] METABOLIC PANE Tono 10-31-2023 Albumin [Mass/Vol] 4.9 g/dL Normal 3.2-5.3 [facility] Comment on above: Performed By: #### C OUMOU, THYR #### [facility] ([id number]) [address] [facility] [facility] [address] [place] [address] ALP [Catalytic activity/Vol] 67 U/L Normal 39-130 [facility] Comment on above: Performed By: #### C OUMOU, THYR #### [facility] ([id number]) [address] [address] [place] [address] ALT [Catalytic activity/Vol] 18 U/L Normal 0-31 [facility] Comment on above: Performed By: #### C OUMOU, THYR #### [facility] ([id number]) [address] [address] Anion gap [Moles/Vol] 8 mmol/L Normal 5-15 [facility] Comment on above: Performed By: #### C OUMOU, THYR #### [facility] ([id number]) [address] [address] [place] [address] AST [Catalytic activity/Vol] 19 U/L Normal 0-41 [facility] Comment on above: Performed By: #### C OUMOU, THYR #### [facility] ([id number]) [address] [place] [address] Bilirubin [Mass/Vol] 0.4 mg/dL Normal 0.3-1.2 [facility] Comment on above: Performed By: #### C OUMOU, THYR #### [facility] ([id number]) [address] [place] [address] Calcium [Mass/Vol] 9.8 mg/dL Normal 8.5-10.5 [facility] Comment on above: Performed By: #### C OUMOU, THYR #### [facility] ([id number]) [address] [place] [address] Chloride [Moles/Vol] 103 mmol/L Normal 98-109 [facility] Comment on above: Performed By: #### C OUMOU, THYR #### [facility] ([id number]) [address] [place] [address] CO2 [Moles/Vol] 29 mmol/L Normal 22-32 [facility] Comment on above: Performed By: #### C OUMOU, THYR #### [facility] ([id number]) [address] [place] [address] Creatinine [Mass/Vol] 0.73 mg/dL Normal 0.40-1.00 [facility] Comment on above: Result Comment: METH OD TRACEABLE TO IDMS STANDARD Performed By: #### C OUMOU, THYR #### [facility] ([id number]) [address] [place] [address] eGFR (CKD-EPI) NON-RACE DEPENDENT >90 Normal >59 [facility] Comment on above: Result Comment: Reported eGFR is based on the CKD-EPI 2020 equation that does not use a race coefficient. Performed By: #### C OUMOU, THYR #### [facility] ([id number]) [address] [place] [address] Glucose [Mass/Vol] 94 mg/dL Normal 65-99 [facility] Comment on above: Performed By: #### C OUMOU, THYR #### [facility] ([id number]) [address], [address] [place] [address] Potassium [Moles/Vol] 4.6 mmol/L Normal 3.5-5.0 [facility] Comment on above: Performed By: #### C OUMOU, THYR #### [facility] ([id number]) [address], [address] [place] [address] Protein [Mass/Vol] 7.7 g/dL Normal 6.0-8.0 [facility] Comment on above: Performed By: #### C OUOMU, THYR #### [facility] ([id number]) [address], [address] [place] [address] Sodium [Moles/Vol] 140 mmol/L Normal 134-146 [facility] Comment on above: Performed By: #### C OUMOU, THYR #### [facility] ([id number]) [address], [address] [place] [address] Urea nitrogen [Mass/Vol] 12 mg/dL Normal 5-27 [facility] Comment on above: Performed By: #### C OUMOU, THYR #### [facility] ([id number]) [address], [address] [place] [address] Comprehensive metabolic pane tono 10-31-2023 Albumin [Mass/Vol] 4.9 g/dL 3.2 - 5.3 g/dL [facility] ALP [Catalytic activity/Vol] 67 U/L 39 - 130 U/L [facility] ALT No additional P-5'-P [Catalytic activity/Vol] 18 U/L 0 - 31 U/L [facility] Anion gap [Moles/Vol] 8 mmol/L 5 - 15 mmol/L [facility] AST [Catalytic activity/Vol] 19 U/L 0 - 41 U/L [facility] Bilirubin [Mass/Vol] 0.4 mg/dL 0.3 - 1.2 mg/dL [facility] Calcium [Mass/Vol] 9.8 mg/dL 8.5 - 10. 5 mg/dL [facility] Chloride [Moles/Vol] 103 mmol/L 98 - 109 mmol/L [facility] CO2 [Moles/Vol] 29 mmol/L 22 - 32 mmol/L [facility] Creatinine [Mass/Vol] 0.73 mg/dL 0.40 - 1.00 mg/dL [facility] Comment on above: METHOD TRACEABLE TO [place] [facility] STANDARD eGFR (CKD-EPI)non-race dependent - PINF [facility] Comment on above: Reported eGFR is based on the CKD-EPI 2020 equation that does not use a race coefficient. Glucose [Mass/Vol] 94 mg/dL 65 - 99 mg/dL [facility] Potassium [Moles/Vol] 4.6 mmol/L 3.5 - 5.0 mmol/L [facility] Protein [Mass/Vol] 7.7 g/dL 6.0 - 8.0 g/dL [facility] Sodium [Moles/Vol] 140 mmol/L 134 - 146 mmol/L [facility] Urea nitrogen [Mass/Vol] 12 mg/dL 5 - 27 mg/dL [facility] THYROID PROFILEon 10-31-2023 Free T4 [Mass/Vol] 0.65 ng/dL Normal 0.61-1.60 [facility] Comment on above: Performed By: #### C OUMOU, THYR #### [facility] ([id number]) [address], [address] [place] [address] TSH 1.45 uIU/mL Normal 0.49-4.67 [facility] Comment on above: Performed By: #### C OUMOU, THYR #### [facility] ([id number]) [address], [address] [place] [address] Thyroid profile includes TSH FT4on 10-31-2023 Free T4 [Mass/Vol] 0.65 ng/dL 0.61 - 1. 60 ng/dL [facility] TSH Qn 1.45 m[IU]/L [facility] FREE T4on 07-18-2022 Free T4 [Mass/Vol] 0.79 ng/dL Normal 0.76-1.46 [facility] Comment on above: Performed By: #### F T4 #### [facility] [address] [address] [address] Aman Dover MG MAMM SCREEN 3D ERA CADon 07-18-2022 MG MAMM SCREEN 3D ERA CAD Patient: MANUELA NULL Exam Date: 07/18/2022 : 1960 Gender:F Ordering : DR SHIRLENE FINN Admission #: [id number] Family : Order #: [id number] CLICK HERE TO VIEW EXAM RADIOLOGY REPORT [...] lung cancer at age 47. LOCATION: [facility] BREAST COMPOSITION: Scattered areas fibroglandular density. [...] Catalan MD on 07/18/2022 at 13:10 Normal [facility] TSHon 07-18-2022 TSH 1.228 uIU/mL Normal 0.358-3.740 [facility] Comment on above: Performed By: #### T SH #### [facility] [address] [address] [address] Neck W contrast Naomy 06-0 IMPRESSION: Punctate 3 mm focus of asymmetric enhancement along the left true vocal cord, without significant exophytic extension into the lumen or involvement of the anterior commissure. This could reflect postoperative change, and/or residual neoplasm. No significant extension into the paraglottic fat more superiorly, or subglottic extension. No pathologic cervical lymph nodes by imaging criteria. Small subcentimeter sclerotic foci within the C1 and C2 vertebrae. These are nonspecific and favored to reflect bone islands, however remain indeterminate given the history. Attention on follow-up recommended. Transcribe Date/Time: Feb 16 2022 2:46P Dictated by: FATUMA ADHIKARI MD This examination was interpreted and the report reviewed and electronically signed by: FATUMA ADHIKARI MD on Feb 16 2022 4:50PM EST Thank you for allowing us to participate in the care of your patient. Should there be any questions regarding this interpretation, please call [phone]. If you are unable to reach us at the number above, please feel free to contact [facility] eRadiology at [phone]. 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 ... brought to the OR on 01/23/2022 for direct laryngoscopy under anesthesia which described a 'sessile verrucous lesion of the anterior third of the left true vocal cord, distinct from the anterior commissure'. This lesion was excised (non-oncologic) and pathology revealed poorly differentiated squamous cell carcinoma. Technique: CT of the soft tissues of the neck with IV contrast. A series of contiguous helical scans were performed from the skull base to the aortic arch. M: CTNW_1 Contrast: 100 mL Omnipaque [address] Dose-Length Product (DLP): 457 mGy*cm CT Dose Reduction Employed: Automated exposure control (AEC) COMPARISON: None available. RESULT: Postoperative change: None apparent. Suprahyoid Neck: Nasopharynx and oropharynx appear normal. Parapharyngeal tissue planes are preserved. Oral cavity and floor of mouth appear normal within constraints of artifact from dental amalgam. Parotid and submandibular spaces are normal. Emergency Dispatch Operator spaces appear normal. Infrahyoid Neck: Slightly asymmetric 3 mm focus of enhancement along the anterior aspect of the left true vocal cord (2:76), without significant exophytic extension into the lumen, or involvement of the anterior commissure. This could reflect postoperative change, and/or residual neoplasm. No significant extension into the paraglottic fat more superiorly. No significant subglottic extension. Mild effacement of the left laryngeal ventricle compared to the right. Thyroid cartilage appears intact. Slight asymmetry intensity of the arytenoid cartilages, nonspecific. Hypopharynx appears unremarkable. Imaged infraglottic trachea appears unremarkable. Imaged upper esophagus is unremarkable. Thyroid gland is normal in size, with bilateral subcentimeter nodules, for which dedicated imaging follow-up is not required per institutional guidelines. Lymph Nodes: No cervical lymphadenopathy by size criteria. Scattered normal sized lymph nodes without suspicious morphologic features. Carotid Space: No masses. Patent extracranial carotid systems and internal jugular veins bilaterally. Orbits, Face and Skull Base: Orbital soft tissue planes are preserved. . Paranasal sinuses are clear. . Mastoid air cells and middle ear cavities are clear. . No evidence of an osteolytic or osteoblastic process in the skull base. . . Imaged intracranial contents: No enhancement, no mass effect, and no hydrocephalus. Cervical spine and remaining osseous structures: Alignment is normal. Small 6 mm sclerotic focus in the C2 vertebral body near the base of the odontoid process. Small punctate 2 mm sclerotic focus in the left lateral mass of C1 (4:68). These are nonspecific, favored to reflect bone islands, however remain indeterminate given the history. Mild spondylotic changes in the visualized spine. Lung apices: Biapical scarring. Bilateral paraseptal emphysema. Other: Not applicable. 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 ... brought to the OR on 01/23/2022 for direct laryngoscopy under anesthesia which described a 'sessile verrucous lesion of the anterior third of the left true vocal cord, distinct from the anterior commissure'. This lesion was excised (non-oncologic) and pathology revealed poorly differentiated squamous cell carcinoma. Technique: CT of the soft tissues of the neck with IV contrast. A series of contiguous helical scans were performed from the skull base to the aortic arch. M: CTNW_1 Contrast: 100 mL Omnipaque [address] Dose-Length Product (DLP): 457 mGy*cm CT Dose Reduction Employed: Automated exposure control (AEC) COMPARISON: None available. RESULT: Postoperative change: None apparent. Suprahyoid Neck: Nasopharynx and oropharynx appear normal. Parapharyngeal tissue planes are preserved. Oral cavity and floor of mouth appear normal within constraints of artifact from dental amalgam. Parotid and submandibular spaces are normal. Emergency Dispatch Operator spaces appear normal. Infrahyoid Neck: Slightly asymmetric 3 mm focus of enhancement along the anterior aspect of the left true vocal cord (2:76), without significant exophytic extension into the lumen, or involvement of the anterior commissure. This could reflect postoperative change, and/or residual neoplasm. No significant extension into the paraglottic fat more superiorly. No significant subglottic extension. Mild effacement of the left laryngeal ventricle compared to the right. Thyroid cartilage appears intact. Slight asymmetry intensity of the arytenoid cartilages, nonspecific. Hypopharynx appears unremarkable. Imaged infraglottic trachea appears unremarkable. Imaged upper esophagus is unremarkable. Thyroid gland is normal in size, with bilateral subcentimeter nodules, for which dedicated imaging follow-up is not required per institutional guidelines. Lymph Nodes: No cervical lymphadenopathy by size criteria. Scattered normal sized lymph nodes without suspicious morphologic features. Carotid Space: No masses. Patent extracranial carotid systems and internal jugular veins bilaterally. Orbits, Face and Skull Base: Orbital soft tissue planes are preserved. . Paranasal sinuses are clear. . Mastoid air cells and middle ear cavities are clear. . No evidence of an osteolytic or osteoblastic process in the skull base. . . Imaged intracranial contents: No enhancement, no mass effect, and no hydrocephalus. Cervical spine and remaining osseous structures: Alignment is normal. Small 6 mm sclerotic focus in the C2 vertebral body near the base of the odontoid process. Small punctate 2 mm sclerotic focus in the left lateral mass of C1 (4:68). These are nonspecific, favored to reflect bone islands, however remain indeterminate given the history. Mild spondylotic changes in the visualized spine. Lung apices: Biapical scarring. Bilateral paraseptal emphysema. Other: Not applicable. IMPRESSION IMPRESSION: Punctate 3 mm focus of asymmetric enhancement along the left true vocal cord, without significant exophytic extension into the lumen or involvement of the anterior commissure. This could reflect postoperative change, and/or residual neoplasm. No significant extension into the paraglottic fat more superiorly, or subglottic extension. No pathologic cervical lymph nodes by imaging criteria. Small subcentimeter sclerotic foci within the C1 and C2 vertebrae. These are nonspecific and favored to reflect bone islands, however remain indeterminate given the history. Attention on follow-up recommended. Transcribe Date/Time: Feb 16 2022 2:46P Dictated by: FATUMA ADHIKARI MD This examination was interpreted and the report reviewed and electronically signed by: FATUMA ADHIKARI MD on Feb 16 2022 4:50PM EST Thank you for allowing us to participate in the care of your patient. Should there be any questions regarding this interpretation, please call [phone]. If you are unable to reach us at the number above, please feel free to contact [facility] eRadiology at [phone]. [facility] Radiology Study observation (narrative) [facility] CT Neck W contrast IVOrdered By: Ccf Provider on 02-16-2022 [facility] ic Laboratory - Chemistry and C hemistry - challengeon 02-02-2022 Creatinine [Mass/Vol] 0.64 mg/dL 0.58 - 0.96 mg/dL [facility] No Panel Informationon 02-02 Estimated Glomerular Filtration Rate 100 mL/min/1.73m >=60 mL/min/1.73m [facility] CBC AUTO DIFFon 01-15-2022 BASO # 0.0 103/ul Normal 0.0-0.1 [facility] Comment on above: Performed By: #### C BC #### [facility] [address] [place] [address] Dr. Aman Dover Basophils/100 WBC (Bld) 0.6 % Normal 0.2-2.0 [facility] Comment on above: Performed By: #### C BC #### [facility] [address] [place] [address] Dr. Aman Dover EO # 0.1 103/ul Normal 0.0-0.7 [facility] Comment on above: Performed By: #### C BC #### [facility] [address] [place] [address] Dr. Aman Dover Eosinophils/100 WBC (Bld) 2.2 % Normal 0.9-7.0 [facility] Comment on above: Performed By: #### C BC #### [facility] [address] [place] [address] Dr. Aman Dover Erythrocyte distribution width (RBC) [Ratio] 12.7 % Normal 11.0-15.0 [facility] Comment on above: Performed By: #### C BC #### [facility] [address] [place] [address] Dr. Aman Dover Hematocrit (Bld) [Volume fraction] 39.9 % Normal 36.0-48.0 [facility] Comment on above: Performed By: #### C BC #### [facility] [address] [place] [address] Dr. Aman Dover Hemoglobin (Bld) [Mass/Vol] 13.3 g/dL Normal 12.0-16.0 [facility] Comment on above: Performed By: #### C BC #### [facility] [address] [place] [address] Dr. Aman Dover IG # 0.02 10e3/ul Normal 0.00-0.03 [facility] Comment on above: Performed By: #### C BC #### [facility] [address] [place] [address] Dr. Aman Dover IG % 0.3 % Normal 0.0-0.5 [facility] Comment on above: Performed By: #### C BC #### [facility] [address] [place] [address] Dr. Aman Dover LYMPH # 1.3 103/ul Normal 1.2-3.8 [facility] Comment on above: Performed By: #### C BC #### [facility] [address] [place] [address] Dr. Aman Dover Lymphocytes/100 WBC (Bld) 19.7 % Critically low 20.5-60.0 [facility] Comment on above: Performed By: #### C BC #### [facility] [address] [place] [address] Dr. Aman Dover MANUAL DIFF REQ NO Normal [facility] Comment on above: Performed By: #### C BC #### [facility] [address] [place] [address] Dr. Aman Dover MCH (RBC) [Entitic mass] 32.0 pg Normal 26.7-34.0 [facility] Comment on above: Performed By: #### C BC #### [facility] [address] [place] [address] Dr. Aman Dover MCHC (RBC) [Mass/Vol] 33.3 g/dL Normal 29.9-35.2 [facility] Comment on above: Performed By: #### C BC #### [facility] [address] [place] [address] Dr. Aman Dover MCV (RBC) [Entitic vol] 96.1 fL Normal 81.0-99.0 [facility] Comment on above: Performed By: #### C BC #### [facility] [address] [place] [address] Dr. Aman Dover MONO # 0.6 103/ul Normal 0.3-0.8 [facility] Comment on above: Performed By: #### C BC #### [facility] [address] [place] [address] Dr. Aman Dover Monocytes/100 WBC (Bld) 8.5 % Normal 1.7-12.0 [facility] Comment on above: Performed By: #### C BC #### [facility] [address] [place] [address] Dr. Aman Dover NEUT # 4.4 103/ul Normal 1.4-6.5 [facility] Comment on above: Performed By: #### C BC #### [facility] [address] [address] [address] Aman Dover Neutrophils/100 WBC (Bld) 68.7 % Normal 43.0-75.0 [facility] Comment on above: Performed By: #### C BC #### [facility] [address] [place] [address] Dr. Aman Dover Platelet mean volume (Bld) [Entitic vol] 8.2 fL Critically low 9.5-13.5 [facility] Comment on above: Performed By: #### C BC #### [facility] [address] [place] [address] Dr. Aman Dover PLT 301 103/ul Normal 150-450 [facility] Comment on above: Performed By: #### C BC #### [facility] [address] [place] [address] Dr. Aman Dover RBC 4.15 106/ul Critically low 4.20-5.40 [facility] Comment on above: Performed By: #### C BC #### [facility] [address] [place] [address] Dr. Aman Dover WBC 6.5 103/ul Normal 4.0-11.0 [facility] Comment on above: Performed By: #### C BC #### [facility] [address] [place] [address] Dr. Aman Dover T4, FREEon 12-06-2021 Free T4 [Mass/Vol] 1.2 ng/dL Normal 0.8-1.8 [facility] Comment on above: Performed By: #### 8 99, 866 #### [facility] [address], [address] [place] [id number] Ditch Digger: Darrel Dorado MD TSHon 12-06-2021 TSH Qn 1.67 m[IU]/L Normal 0.40-4.50 [facility] Comment on above: Performed By: #### 8 99, 866 #### [facility] [address] [address] Ditch Digger: Darrel Dorado MD [facility]AB[facility] 09-02-2021 Albumin [Mass/Vol] 4.6 g/dL Normal 3.6-5.1 [facility] Comment on above: Performed By: #### 1 7306, 57406, 7600 #### [facility] [address] [address] Ditch Digger: Darrel Dorado MD Albumin/Globulin [Mass ratio] 1.9 {ratio} Normal 1.0-2.5 [facility] Comment on above: Performed By: #### 1 7306, 53533, 0 #### [facility] [address] [address] Ditch Digger: Darrel Dorado MD ALP [Catalytic activity/Vol] 61 U/L Normal 37-153 [facility] Comment on above: Performed By: #### 1 7306, 36312, 7600 #### [facility] [address] [address] Ditch Digger: Darrel Dorado MD ALT [Catalytic activity/Vol] 15 U/L Normal 6-29 [facility] Comment on above: Performed By: #### 1 7306, 39449, 7600 #### [facility] [address] [address] Ditch Digger: Darrel Dorado MD AST [Catalytic activity/Vol] 17 U/L Normal 10-35 [facility] Comment on above: Performed By: #### 1 7306, 52756, 7600 #### [facility] [address] [address] Ditch Digger: Darrel Dorado MD Bilirubin [Mass/Vol] 0.4 mg/dL Normal 0.2-1.2 [facility] Comment on above: Performed By: #### 1 7306, 06080, 7600 #### [facility] [address] [place] [address] Ditch Digger: Darrel Doardo MD BUN/CREATININE RATIO NOT APPLICABLE Normal 6-22 [facility] Comment on above: Performed By: #### 1 7306, 99296, 7600 #### [facility] [address] [place] [address] Ditch Digger: Darrel Dorado MD Calcium [Mass/Vol] 9.4 mg/dL Normal 8.6-10.4 [facility] Comment on above: Performed By: #### 1 7306, 99871, 7600 #### [facility] [address] [place] [address] Ditch Digger: Darrel Dorado MD Chloride [Moles/Vol] 102 mmol/L Normal 98-110 [facility] Comment on above: Performed By: #### 1 7306, 51627, 7600 #### [facility] [address] [place] [address] Ditch Digger: Darrel Dorado MD CO2 [Moles/Vol] 29 mmol/L Normal 20-32 [facility] Comment on above: Performed By: #### 1 7306, 88003, 7600 #### [facility] [place] [address] Ditch Digger: Darrel Dorado MD Creatinine [Mass/Vol] 0.57 mg/dL Normal 0.50-0.99 [facility] Comment on above: Result Comment: For patients >49 years of age, the reference limit for Creatinine is approximately 13% higher for people identified as -Spanish. Performed By: #### 1 7306, 19788, 7600 #### [facility] [address] [place] [address] Ditch Digger: Darrel Dorado MD eGFR NON-AFR. TAIWANESE 100 mL/min/1.73m2 Normal > OR = 60 [facility] Comment on above: Performed By: #### 1 7306, 92140, 0 #### [facility] [place] [address] Ditch Digger: Darrel Dorado MD GFR/1.73 sq M.predicted among blacks MDRD (S/P/Bld) [Vol rate/Area] 116 mL/min/{1.73_m2} Normal > OR = 60 [facility] Comment on above: Performed By: #### 1 7306, 34219, 0 #### [facility] [address] [place] [address] Ditch Digger: Darrel Dorado MD Globulin (S) [Mass/Vol] 2.4 g/dL Normal 1.9-3.7 [facility] Comment on above: Performed By: #### 1 7306, , 0 #### [facility] [place] [address] Ditch Digger: Darrel Dorado MD Glucose [Mass/Vol] 91 mg/dL Normal 65-139 [facility] Comment on above: Result Comment: Non-fasting reference interval Performed By: #### 1 7306, , 0 #### [facility] [place] [address] Ditch Digger: Darrel Dorado MD Potassium [Moles/Vol] 4.0 mmol/L Normal 3.5-5.3 [facility] Comment on above: Performed By: #### 1 7306, 19165, 0 #### [facility] [place] [address] Ditch Digger: Darrel Dorado MD Protein [Mass/Vol] 7.0 g/dL Normal 6.1-8.1 [facility] Comment on above: Performed By: #### 1 7306, 32720, 0 #### [facility] [address] [place] [address] Ditch Digger: Darrel Dorado MD Sodium [Moles/Vol] 138 mmol/L Normal 135-146 [facility] Comment on above: Performed By: #### 1 7306, 75934, 7600 #### [facility] [address], [address] [place] [address] Ditch Digger: Darrel Dorado MD Urea nitrogen [Mass/Vol] 14 mg/dL Normal 7-25 [facility] Comment on above: Performed By: #### 1 7306, 90855, 7600 #### [facility] [address], [address] [place] [address] Ditch Digger: Darrel Dorado MD LIPID PANEL, [place] [address] Cholesterol [Mass/Vol] 238 mg/dL High <200 [facility] Comment on above: Order Comment: FASTI NG:NO FASTING: NO Performed By: #### 1 7306, 71958, 7600 #### [facility] [address], [address] [place] [address] Ditch Digger: Darrel Dorado MD Cholesterol in HDL [Mass/Vol] 63 mg/dL Normal > OR = 50 [facility] Comment on above: Order Comment: FASTI NG:NO FASTING: NO Performed By: #### 1 7306, 94429, 7600 #### [facility] [address], [address] [place] [address] Ditch Digger: Darrel Dorado MD Cholesterol in LDL [Mass/Vol] [...] Luis Carlos LOERA et al. CARYN. 2013;310(19): 9325-7196 (http://[email or web address].LC Style.com/faq/ZBD635) Performed By: #### 1 7306, 78904, 7600 #### [facility] [address], [address] [place] [address] Ditch Digger: Darrel Dorado MD Cholesterol.total/C holesterol in HDL [Mass ratio] 3.8 {ratio} Normal <5.0 [facility] Comment on above: Order Comment: FASTI NG:NO FASTING: NO Performed By: #### 1 7306, 20153, 7600 #### [facility] [address], [address] [place] [address] Ditch Digger: Darrel Dorado MD NON HDL CHOLESTEROL 175 mg/dL (calc) High <130 [facility] Comment on above: Order Comment: FASTI NG:NO FASTING: NO Result Comment: For patients with diabetes plus 1 major ASCVD risk factor, treating to a non-HDL-C goal of <100 mg/dL (LDL-C of <70 mg/dL) is considered a therapeutic option. Performed By: #### 1 [id number] #### [facility] [address], [address] [place] [address] Ditch Digger: Darrel Dorado MD Triglyceride [Mass/Vol] 120 mg/dL Normal <150 [facility] Comment on above: Order Comment: FASTI NG:NO FASTING: NO Performed By: #### 1 [id number], [id number] #### [facility] [address], [address] [place] [address] Ditch Digger: Darrel Dorado MD VITAMIN D,25-OH,TOTAL,IAon 1 11-03-2020 [...] D, (D2,D3), LC/MS/MS is recommended: order code 23396 (patients >2yrs). See Note 1 Note 1 For additional information, please refer to [email or web address] (This link is being provided for informational/ educational purposes only.) Performed By: #### 1 [id number], [id number] #### [facility] [address], [address] [place] [address] Ditch Digger: Darrel Dorado MD Vital Signs Date Time Vital Sign Value Performing Clinician Facility 10-20-2024 08:28-0500 Body height 170.2 cm Jose Elias Lucero MD Work Phone: [facility] 10-20-2024 08:28-0500 Body mass index (BMI) [Ratio] 22.87 kg/m2 Jose Elias Lucero MD Work Phone: [facility] 10-20-2024 08:28-0500 Body weight 66.22 kg Jose Elias Lucero MD Work Phone: [facility] 10-20-2024 08:28-0500 Diastolic blood pressure 73 mm[Hg] Jose Elias Lucero MD Work Phone: [facility] 10-20-2024 08:28-0500 Systolic blood pressure 118 mm[Hg] Jose Elias Lucero MD Work Phone: [facility] 08-04-2024 08:27-0500 Body height 165.1 cm Rogers Goddard APRN-PLAN EXAMINER Work Phone: [facility] 08-04-2024 08:27-0500 Body mass index (BMI) [Ratio] 24.36 kg/m2 Rogers Goddard SOLAR PHOTOVOLTAIC DESIGNER-PLAN EXAMINER Work Phone: [facility] 08-04-2024 08:27-0500 Body temperature 97.5 [degF] Rogers Goddard SOLAR PHOTOVOLTAIC DESIGNER-PLAN EXAMINER Work Phone: [facility] 08-04-2024 08:27-0500 Body weight 66.41 kg Rogers Goddard SOLAR PHOTOVOLTAIC DESIGNER-PLAN EXAMINER Work Phone: [facility] 08-04-2024 08:27-0500 Diastolic blood pressure 72 mm[Hg] Rogers Goddard SOLAR PHOTOVOLTAIC DESIGNER-PLAN EXAMINER Work Phone: [facility] 08-04-2024 08:27-0500 Heart rate 94 /min Rogers Goddard APRN-PLAN EXAMINER Work Phone: [facility] 08-04-2024 08:27-0500 Respiratory rate 16 /min Rogers Goddard APRN-PLAN EXAMINER Work Phone: [facility] 08-04-2024 08:27-0500 SaO2% (BldA) [Mass fraction] 97 % Rogers Goddard APRN-PLAN EXAMINER Work Phone: [facility] 08-04-2024 08:27-0500 Systolic blood pressure 110 mm[Hg] Rogers Goddard APRN-PLAN EXAMINER Work Phone: [facility] 07-21-2024 08:29-0500 Body height 170.2 cm Jose Elias Lucero MD Work Phone: [facility] 07-21-2024 08:29-0500 Body mass index (BMI) [Ratio] 23.18 kg/m2 Jose Elias Lucero MD Work Phone: [facility] 07-21-2024 08:29-0500 Body weight 67.13 kg Jose Elias Lucero MD Work Phone: [facility] 07-21-2024 08:29-0500 Diastolic blood pressure 81 mm[Hg] Jose Elias Lucero MD Work Phone: [facility] 07-21-2024 08:29-0500 Systolic blood pressure 122 mm[Hg] Jose Elias Lucero MD Work Phone: [facility] 05-04-2024 09:47-0400 Body mass index (BMI) [Ratio] 23.74 kg/m2 Kelvin De La Fuente MD Work Phone: [facility] 05-04-2024 09:47-0400 Body temperature 96.69 [degF] Kelvin De La Fuente MD Work Phone: [facility] 05-04-2024 09:47-0400 Body weight 66.2 kg Kelvin De La Fuente MD Work Phone: [facility] 05-04-2024 09:47-0400 Diastolic blood pressure 86 mm[Hg] Kelvin De La Fuente MD Work Phone: [facility] 05-04-2024 09:47-0400 Heart rate 111 /min Kelvin De La Fuente MD Work Phone: [facility] 05-04-2024 09:47-0400 Respiratory rate 16 /min Kelvin De La Fuente MD Work Phone: [facility] 05-04-2024 09:47-0400 SaO2% (BldA) [Mass fraction] 98 % Kelvin De La Fuente MD Work Phone: [facility] 05-04-2024 09:47-0400 Systolic blood pressure 128 mm[Hg] Kelvin De La Fuente MD Work Phone: [facility] 10-31-2023 08:56-0500 Body height 165.1 cm Shirlene Finn SOLAR PHOTOVOLTAIC DESIGNER-GARAGE DOOR TECHNICIAN Work Phone: [facility] [employer] [facility] 10-31-2023 08:56-0500 Body mass index (BMI) [Ratio] 24 kg/m2 Shirlene Finn SOLAR PHOTOVOLTAIC DESIGNER-GARAGE DOOR TECHNICIAN Work Phone: [facility] [employer] [facility] 10-31-2023 08:56-0500 Body temperature 97 [degF] Shirlene Finn SOLAR PHOTOVOLTAIC DESIGNER-GARAGE DOOR TECHNICIAN Work Phone: [facility] 10-31-2023 08:56-0500 Body weight 65.41 kg Shirlene Finn SOLAR PHOTOVOLTAIC DESIGNER-GARAGE DOOR TECHNICIAN [facility] Phone[facility] [employer] [facility] 10-31-2023 08:56-0500 Diastolic blood pressure 60 mm[Hg] Shirlene Finn SOLAR PHOTOVOLTAIC DESIGNER-GARAGE DOOR TECHNICIAN Work Phone: [facility] [employer] [facility] 10-31-2023 08:56-0500 Heart rate 109 /min Shirlene Finn SOLAR PHOTOVOLTAIC DESIGNER-GARAGE DOOR TECHNICIAN Work Phone: [facility] 10-31-2023 08:56-0500 SaO2% (BldA) [Mass fraction] 99 % Shirlene Finn SOLAR PHOTOVOLTAIC DESIGNER-GARAGE DOOR TECHNICIAN Work Phone: [facility] 10-31-2023 08:56-0500 Systolic blood pressure 104 mm[Hg] Shirlene Finn SOLAR PHOTOVOLTAIC DESIGNER-GARAGE DOOR TECHNICIAN Work Phone: [facility] 10-21-2023 08:21-0500 Body height 170.2 cm Jose Elias Lucero MD Work Phone: [facility] 10-21-2023 08:21-0500 Body mass index (BMI) [Ratio] 22.71 kg/m2 Jose Elias Lucero MD Work Phone: [facility] 10-21-2023 08:21-0500 Body weight 65.77 kg Jose Elias Lucero MD Work Phone: [facility] 10-21-2023 08:21-0500 Diastolic blood pressure 83 mm[Hg] Jose Elias Lucero MD Work Phone: [facility] 10-21-2023 08:21-0500 Systolic blood pressure 109 mm[Hg] Jose Elias Lucero MD Work Phone: [facility] 05-06-2023 09:56-0400 Body temperature 97.39 [degF] Kelvin De La Fuente MD Work Phone: [facility] 05-06-2023 09:56-0400 Body weight 63.5 kg Kelvin De La Fuente MD Work Phone: [facility] 05-06-2023 09:56-0400 Diastolic blood pressure 72 mm[Hg] Kelvin De La Fuente MD Work Phone: [facility] 05-06-2023 09:56-0400 Heart rate 90 /min Kelvin De La Fuente MD Work Phone: [facility] 05-06-2023 09:56-0400 Respiratory rate 18 /min Kelvin De La Fuente MD Work Phone: [facility] 05-06-2023 09:56-0400 SaO2% (BldA) [Mass fraction] 98 % Kelvin De La Fuente MD Work Phone: [facility] 05-06-2023 09:56-0400 Systolic blood pressure 108 mm[Hg] Kelvin De La Fuente MD Work Phone: [facility] 08-16-2022 10:57-0500 Body temperature 97.2 [degF] Kelvin De La Fuente MD Work Phone: [facility] 08-16-2022 10:57-0500 Body weight 63.87 kg Kelvin De La Fuente MD Work Phone: [facility] 08-16-2022 10:57-0500 Diastolic blood pressure 72 mm[Hg] Kelvin De La Fuente MD Work Phone: [facility] 08-16-2022 10:57-0500 Heart rate 102 /min Kelvin De La Fuente MD Work Phone: [facility] 08-16-2022 10:57-0500 Respiratory rate 16 /min Kelvin De La Fuente MD Work Phone: [facility] 08-16-2022 10:57-0500 SaO2% (BldA) [Mass fraction] 98 % Kelvin De La Fuente MD Work Phone: [facility] 08-16-2022 10:57-0500 Systolic blood pressure 119 mm[Hg] Kelvin De La Fuente MD Work Phone: [facility] 06-11-2022 09:59-0400 Body temperature 97.3 [degF] Kelvin De La Fuente MD Work Phone: [facility] 06-11-2022 09:59-0400 Body weight 59.88 kg Kelvin De La Fuente MD Work Phone: [facility] 06-11-2022 09:59-0400 Diastolic blood pressure 50 mm[Hg] Kelvin De La Fuente MD Work Phone: [facility] 06-11-2022 09:59-0400 Heart rate 91 /min Kelvin De La Fuente MD Work Phone: [facility] 06-11-2022 09:59-0400 Respiratory rate 16 /min Kelvin De La Fuente MD Work Phone: [facility] 06-11-2022 09:59-0400 SaO2% (BldA) [Mass fraction] 97 % Kelvin De La Fuente MD Work Phone: [facility] 06-11-2022 09:59-0400 Systolic blood pressure 112 mm[Hg] Kelvin De La Fuente MD Work Phone: [facility] 05-11-2022 09:40-0400 Body temperature 98.2 [degF] Chair Clay Work Phone: [facility] 05-11-2022 09:40-0400 Diastolic blood pressure 60 mm[Hg] Chair Clay Work Phone: [facility] 05-11-2022 09:40-0400 Heart rate 99 /min Chair Aj Work Phone: [facility] 05-11-2022 09:40-0400 Respiratory rate 18 /min Chair Aj Work Phone: [facility] 05-11-2022 09:40-0400 SaO2% (BldA) [Mass fraction] 97 % Chair Aj Work Phone: [facility] 05-11-2022 09:40-0400 Systolic blood pressure 99 mm[Hg] Chair Clay Work Phone: [facility] 05-09-2022 10:17-0400 Body temperature 97.59 [degF] Kelvin De La Fuente MD Work Phone: [facility] 05-09-2022 10:17-0400 Body weight 62.23 kg Kelvin De La Fuente MD Work Phone: [facility] 05-09-2022 10:17-0400 Diastolic blood pressure 64 mm[Hg] Kelvin De La Fuente MD Work Phone: [facility] 05-09-2022 10:17-0400 Heart rate 110 /min Kelvin De La Fuente MD Work Phone: [facility] 05-09-2022 10:17-0400 Respiratory rate 16 /min Kelvin De La Fuente MD Work Phone: [facility] 05-09-2022 10:17-0400 SaO2% (BldA) [Mass fraction] 98 % Kelvin De La Fuetne MD Work Phone: [facility] 05-09-2022 10:17-0400 Systolic blood pressure 101 mm[Hg] Kelvin De La Fuente MD Work Phone: [facility] 05-02-2022 09:23-0400 Body temperature 97.3 [degF] Kelvin De La Fuente MD Work Phone: [facility] 05-02-2022 09:23-0400 Body weight 62.23 kg Kelvin De La Fuente MD Work Phone: [facility] 05-02-2022 09:23-0400 Diastolic blood pressure 66 mm[Hg] Kelvin De La Fuente MD Work Phone: [facility] 05-02-2022 09:23-0400 Heart rate 113 /min Kelvin De La Fuente MD Work Phone: [facility] 05-02-2022 09:23-0400 Respiratory rate 16 /min Kelvin De La Fuente MD Work Phone: [facility] 05-02-2022 09:23-0400 SaO2% (BldA) [Mass fraction] 98 % Kelvin De La Fuente MD Work Phone: [facility] 05-02-2022 09:23-0400 Systolic blood pressure 103 mm[Hg] Kelvin De La Fuente MD Work Phone: [facility] 04-27-2022 09:45-0400 Body temperature 97.3 [degF] Chair Aj Work Phone: [facility] 04-27-2022 09:45-0400 Diastolic blood pressure 56 mm[Hg] Chair Aj Work Phone: [facility] 04-27-2022 09:45-0400 Heart rate 87 /min Chair Aj Work Phone: [facility] 04-27-2022 09:45-0400 Respiratory rate 18 /min Chair Aj Work Phone: [facility] 04-27-2022 09:45-0400 SaO2% (BldA) [Mass fraction] 96 % Chair Aj Work Phone: [facility] 04-27-2022 09:45-0400 Systolic blood pressure 102 mm[Hg] Chair Aj Work Phone: [facility] 04-25-2022 09:36-0400 Body temperature 98.29 [degF] Kelvin De La Fuente MD Work Phone: [facility] 04-25-2022 09:36-0400 Body weight 64.41 kg Kelvin De La Fuente MD Work Phone: [facility] 04-25-2022 09:36-0400 Diastolic blood pressure 73 mm[Hg] Kelvin De La Fuente MD Work Phone: [facility] 04-25-2022 09:36-0400 Heart rate 88 /min Kelvin De La Fuente MD Work Phone: [facility] 04-25-2022 09:36-0400 Respiratory rate 16 /min Kelvin De La Fuente MD Work Phone: [facility] 04-25-2022 09:36-0400 SaO2% (BldA) [Mass fraction] 98 % Kelvin De La Fuente MD Work Phone: [facility] 04-25-2022 09:36-0400 Systolic blood pressure 120 mm[Hg] Kelvin De La Fuente MD Work Phone: [facility] 04-09-2022 08:11-0400 Body temperature 97.3 [degF] Kelvin De La Fuente MD Work Phone: [facility] 04-09-2022 08:11-0400 Body weight 64.86 kg Kelvin De La Fuente MD Work Phone: [facility] 04-09-2022 08:11-0400 Diastolic blood pressure 74 mm[Hg] Kelvin De La Fuente MD Work Phone: [facility] 04-09-2022 08:11-0400 Heart rate 115 /min Kelvin De La Fuente MD Work Phone: [facility] 04-09-2022 08:11-0400 Respiratory rate 16 /min Kelvin De La Fuente MD Work Phone: [facility] 04-09-2022 08:11-0400 SaO2% (BldA) [Mass fraction] 99 % Kelvin De La Fuente MD Work Phone: [facility] 04-09-2022 08:11-0400 Systolic blood pressure 116 mm[Hg] Kelvin De La Fuente MD Work Phone: [facility] 02-02-2022 13:18-0400 Body height 167 cm Kelvin De La Fuente MD Work Phone: [facility] 02-02-2022 13:18-0400 Body temperature 97.81 [degF] Kelvin De La Fuente MD Work Phone: [facility] 02-02-2022 13:18-0400 Body weight 62.6 kg Kelvin De La Fuente MD Work Phone: [facility] 02-02-2022 13:18-0400 Diastolic blood pressure 70 mm[Hg] Kelvin De La Fuente MD Work Phone: [facility] 02-02-2022 13:18-0400 Heart rate 93 /min Kelvin De La Fuente MD Work Phone: [facility] 02-02-2022 13:18-0400 Respiratory rate 16 /min Kelvin De La Fuente MD Work Phone: [facility] 02-02-2022 13:18-0400 SaO2% (BldA) [Mass fraction] 99 % Kelvin De La Fuente MD Work Phone: [facility] 02-02-2022 13:18-0400 Systolic blood pressure 106 mm[Hg] Kelvin De La Fuente MD Work Phone: [facility] Encounters Encounter Date Encounter Type Care Provider Facility Start: 10-20-2024 End: 10-20-2024 Castro Lucero MD Work Phone: [facility] Start: 10-20-2024 End: 10-20-2024 Castro Lucero MD Work Phone: [facility] Start: 10-20-2024 End: 10-20-2024 Office outpatient visit 15 minutes Jose Elias Lucero MD Work Phone: [facility] Comment on above: 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) Start: 10-20-2024 End: 10-20-2024 ambulatory JOSE ELIAS LUCERO Not Available Start: 09-17-2024 End: 09-17-2024 Orders Only Rogers Goddard SOLAR PHOTOVOLTAIC DESIGNER-PLAN EXAMINER Work Phone: [facility] Comment on above: Chronic neck and franko k pain Start: 08-04-2024 End: 08-04-2024 Office outpatient visit 15 minutes Rogers Goddard SOLAR PHOTOVOLTAIC DESIGNER-PLAN EXAMINER Work Phone: [facility] Comment on above: Neck pain, chronic ( Primary Dx); Vertigo; Chronic bilateral low back pain without sciatica Start: 08-04-2024 End: 08-04-2024 ambulatory ROGERSCaden GODDARD [facility] Start: 07-21-2024 End: 07-21-2024 Bamboo bill Lucero MD Work Phone: [facility] Start: 07-21-2024 End: 07-21-2024 Castro Lucero MD Work Phone: [facility] Start: 07-21-2024 End: 07-21-2024 Office outpatient visit 15 minutes Jose Elias Lucero MD Work Phone: [facility] Comment on above: Cancer of vocal cord (CMS/HCC) (Primary Dx) Start: 07-21-2024 End: 07-21-2024 ambulatory JOSE ELIAS H TIMMIS Not Available Start: 06-22-2024 End: 06-22-2024 Orders Only Rogers Goddard SOLAR PHOTOVOLTAIC DESIGNER-PLAN EXAMINER Work Phone: [facility] Start: 06-20-2024 End: 06-22-2024 Refill Rogers Goddard SOLAR PHOTOVOLTAIC DESIGNER-PLAN EXAMINER [facility] Comment on above: Chronic neck and franko k pain Start: 05-04-2024 End: 05-04-2024 ambulatory ANATOLIY UNA CHAMBERS Facility:[facility] Start: 05-04-2024 End: 05-04-2024 Patient encounter procedure Kelvin De La Fuente MD Work Phone: [facility] Comment on above: Larynx cancer (HCC) (Primary Dx) Start: 04-21-2024 End: 04-21-[address] [facility] Kalpesh [facility] Start: 04-20-2024 End: 04-20-2024 ambulatory JOSE ELIAS H TIMMIS Not Available Start: 01-31-2024 End: 01-31-2024 ambulatory SOCRATES [facility] Start: 01-20-2024 End: 01-20-2024 ambulatory JOSE ELIAS H TIMMIS Not Available Start: 12-22-2023 Refill Shirlene Finn SOLAR PHOTOVOLTAIC DESIGNER-GARAGE DOOR TECHNICIAN Work Phone: [facility] Start: 12-21-2023 Refill Shirlene Finn SOLAR PHOTOVOLTAIC DESIGNER-GARAGE DOOR TECHNICIAN Work Phone: [facility] Comment on above: Vitamin D deficiency Start: 12-19-2023 Refill Shirlene Finn SOLAR PHOTOVOLTAIC DESIGNER-GARAGE DOOR TECHNICIAN [facility] Start: 12-16-2023 End: 12-16-2023 ambulatory JOSE ELIAS H TIMMIS Not Available Start: 12-01-2023 Orders Only Shirlene Finn SOLAR PHOTOVOLTAIC DESIGNER-GARAGE DOOR TECHNICIAN Work Phone: [facility] Start: 12-01-2023 Refill Shirlene Finn SOLAR PHOTOVOLTAIC DESIGNER-GARAGE DOOR TECHNICIAN Work Phone: [facility] Comment on above: Chronic neck and franko k pain Start: 11-29-2023 Refill Shirlene Finn SOLAR PHOTOVOLTAIC DESIGNER-GARAGE DOOR TECHNICIAN [facility] Start: 11-21-2023 Orders Only Shirlene Finn SOLAR PHOTOVOLTAIC DESIGNER-GARAGE DOOR TECHNICIAN [facility] Comment on above: Special screening fo r malignant neoplasm of colon (Primary Dx) Start: 11-18-2023 End: 11-18-2023 ambulatory JOSE ELIAS LUCERO Not Available Start: 11-09-2023 Refill Shirlene Finn SOLAR PHOTOVOLTAIC DESIGNER-GARAGE DOOR TECHNICIAN Work Phone: [facility] Start: 10-31-2023 End: 11-01-2023 ambulatory SHIRLENE FINN [facility] Start: 10-31-2023 End: 10-31-2023 Office outpatient visit 25 minutes Shirlene Finn SOLAR PHOTOVOLTAIC DESIGNER-GARAGE DOOR TECHNICIAN Work Phone: [facility] Comment on above: Neck pain, chronic ( Primary Dx); Chronic bilateral low back pain without sciatica; Hot flashes; On potassium sparing diuretic therapy Start: 10-31-2023 End: 10-31-2023 ambulatory SHIRLENE FINN [facility] Start: 10-21-2023 Bamboo flowsheet Jose Elias sarmiento MD Work Phone: [facility] Start: 10-21-2023 Bamboo flowsheet Jose Elias sarmiento MD Work Phone: [facility] Start: 10-21-2023 End: 10-21-2023 Office outpatient visit 15 minutes Jose Elias Lucero MD Work Phone: [facility] Comment on above: Cancer of vocal cord (CMS/HCC) (Primary Dx) Start: 10-20-2023 Chart abstracting Jose Elias christiansen MD Work Phone: [facility] Start: 10-15-2023 Refill Shirlene Finn SOLAR PHOTOVOLTAIC DESIGNER-GARAGE DOOR TECHNICIAN [facility] Comment on above: Chronic bilateral lo w back pain without sciatica Start: 10-01-2023 Refill Shirlene Finn SOLAR PHOTOVOLTAIC DESIGNER-GARAGE DOOR TECHNICIAN Work Phone: [facility] Comment on above: Chronic neck and franko k pain Start: 09-25-2023 Refill Shirlene Finn SOLAR PHOTOVOLTAIC DESIGNER-GARAGE DOOR TECHNICIAN Work Phone: [facility] Start: 05-07-2023 Social Work Shantelle Danielson PLATER SUPERVISOR Hematolo gy/Oncology Start: 05-06-2023 End: 05-06-2023 Patient encounter procedure Kelvin De La Fuente MD Work Phone: [facility] Comment on above: Larynx cancer (HCC) (Primary Dx) Start: 01-16-2023 Telephone encounter Kelvin De La Fuente MD Work Phone: Hematology/Oncology Comment on above: Records faxed/Disabi lity Start: 08-16-2022 End: 08-16-2022 Patient encounter procedure Kelvin De La Fuente MD Work Phone: [facility] Comment on above: Larynx cancer (HCC) (Primary Dx) Start: 07-18-2022 End: 07-19-[address] SHIRLENE FINN Facility:[facility] Start: 06-11-2022 End: 06-11-2022 Patient encounter procedure Kelvin De La Fuente MD Work Phone: Radiation Oncology Comment on above: Larynx cancer (HCC) (Primary Dx) Start: 05-31-2022 Refill Kelvin De La Fuente MD Work Phone: Radiation Oncology Comment on above: Refill Request Start: 05-14-2022 Patient encounter procedure Kelvin De La Fuente MD Work Phone: [facility] Start: 05-14-2022 Radiation Oncology Note Kelvin alas MD Work Phone: Radiation Oncology Comment on above: Completion Note Start: 05-11-2022 End: 05-11-2022 Refill Kelvin De La Fuente MD Work Phone: Radiation Oncology Comment on above: Refill Request Cancer of larynx (HC C) (Primary Dx) Start: 05-09-2022 End: 05-09-2022 ambulatory Chair 21 Aj Work Phone: Hematology/Oncology Comment on above: Cancer of larynx (HC C) (Primary Dx) Start: 05-09-2022 End: 05-09-[address] Kim [address]o RD Work Phone: Nutrition Therapy Comment on above: Nutrition Counseling Start: 05-09-2022 End: 05-09-2022 Patient encounter procedure Kelvin De La Fuente MD Work Phone: Radiation Oncology Comment on above: Larynx cancer (HCC) (Primary Dx) Start: 05-03-2022 End: 05-03-[address] Work Phone: [facility] Start: 05-03-2022 End: 05-03-20[address] Nutrition therapy Kim Londono RD Work Phone: Nutrition Therapy Comment on [...] Oncology Start: 04-12-2022 End: 04-12-[address] Work Phone: [facility] Start: 04-12-2022 End: 04-12-2022 Nutrition therapy Kim Londono RD Work Phone: Nutrition Therapy Comment on above: Nutrition Telephone Start: 04-09-2022 End: 04-09-2022 Patient encounter procedure Kelvin De La Fuente MD Work Phone: Radiation Oncology Comment on above: Larynx cancer (HCC) (Primary Dx) Start: 04-05-2022 Social Work Shantelle Danielson PLATER SUPERVISOR Hematolo gy/Oncology Comment on above: Benefits Investigati on Start: 03-30-2022 Telephone encounter Kelvin De La Fuente MD Work Phone: Radiation Oncology Comment on above: Patient Question Start: 03-08-2022 Telephone encounter Kelvin De La Fuente MD Work Phone: Radiation Oncology Comment on above: Patient Question Start: 02-21-2022 Patient encounter procedure [facility]cf Provider [facility] Department Start: 02-19-2022 End: 02-19-2022 Subsequent hospital visit by physician Kelvin De La Fuente MD Work Phone: Radiology Pet CT Start: 02-19-2022 End: 02-19-2022 Patient encounter procedure Kelvin De La Fuente MD Work Phone: [place] Comment on above: Larynx cancer (HCC) (Primary Dx) Start: 02-19-2022 Radiation Oncology Note Kelvin alas MD Work Phone: Radiation Oncology Comment on above: Simulation Note Treatment Planning Start: 02-16-2022 End: 02-16-[address] Work Phone: AJ Start: 02-16-2022 End: 02-16-2022 Nutrition therapy iKm Londono RD Work Phone: Nutrition Therapy Comment on above: Nutrition Assessment Start: 02-16-2022 End: 02-16-2022 Subsequent hospital visit by physician Arrival Time Radiology Work Phone: Radiology Pet CT Comment on above: Larynx cancer (HCC) [C32.9] Start: 02-02-2022 ambulatory Mirna Avendaño LPN Radia tion Oncology Comment on above: Patient Education Start: 02-02-2022 End: 02-02-2022 Patient encounter procedure Lab/Port Dioni Griffin Work Phone: Radiation Oncology Comment on above: Larynx cancer (HCC) Larynx cancer (HCC) (Primary Dx) Start: 01-23-2022 End: 01-23-[address] JOSE ELIAS LUCERO Facility:[facility] Start: 01-20-[address] JOSE ELIAS LUCERO Facili ty:[facility]1 Start: 01-17-2022 Encounter for preprocedural laboratory examination DR JOSE ELIAS LUCERO [facility] Start: 01-15-2022 End: 01-16-[address] JOSE ELIAS LUCERO Facility:[facility] Start: 01-15-2022 End: 01-16-2022 Encounter for preprocedural laboratory examination DR JOSE ELIAS LUCERO Facility:[facility] Procedures Date Procedure Procedure Detail Performing Clinician Start: 08-04-2024 Adult depression scr eening assessment Rogers Goddard SOLAR PHOTOVOLTAIC DESIGNER-PLAN EXAMINER Work Phone: Start: 04-21-2024 Adult depression scr eening assessment Rogers Goddard SOLAR PHOTOVOLTAIC DESIGNER-PLAN EXAMINER Work Phone: Start: 10-31-2023 Adult depression scr eening assessment Shirlene Vinhjessica SOLAR PHOTOVOLTAIC DESIGNER-GARAGE DOOR TECHNICIAN Work Phone: Start: 07-24-2023 Mammography Shirlene Max SOLAR PHOTOVOLTAIC DESIGNER-GARAGE DOOR TECHNICIAN Work Phone: Start: 07-08-2023 Adult depression scr eening assessment Shirlene Justicejessica SOLAR PHOTOVOLTAIC DESIGNER-GARAGE DOOR TECHNICIAN Work Phone: Start: 07-19-2022 Mammography Kelvin De La Fuente MD Work Phone: Start: 02-16-2022 Ct soft tissue neck w/contrast material Kelvin De La Fuente MD Work Phone: Start: 02-02-2022 Creatinine blood Kelvin alas MD Work Phone: Plan of Treatment Date Care Activity Detail Author Start: 12-04-2034 RSV Vaccine (1 - 1-d ose 75+ series) RSV Vaccine (1 - 1-dose 75+ series) [facility] Start: 06-17-2027 DTaP,Tdap and Td Vaccines (3 - Td or Tdap) DTaP,Tdap and Td Vaccines (3 - Td or Tdap) [facility] Start: 06-17-2027 Urine microalbumin profile [facility] Start: 10-31-2026 Diabetes Screening Diabetes Screenin g [facility] Start: 08-04-2025 Adult BMI Screening Adult BMI Screen ing [facility] Start: 08-04-2025 Depression Screening Depression Scre ening [facility] Start: 08-04-2025 Tobacco Screening Tobacco Screening [facility] Start: 05-03-2025 End: 05-03-2025 Patient encounter procedure 05/03/2025 10:00 AM EDT Office Visit Radiation Oncology [address] [place] [address] [place] [address] Kelvin De La Fuente MD [address] [place] [address] [place] [address] Followup Radiation Oncology Comment on above: Followup Start: 04-21-2025 Adult BMI Screening Adult BMI Screen ing [facility] Start: 04-21-2025 Depression Screening Depression Scre ening [facility] Start: 04-21-2025 Tobacco Screening Tobacco Screening [facility] Start: 12-24-2024 End: 12-24-2024 Patient encounter procedure 12/24/2024 8:20 AM EDT Office Visit [facility] Internal Medicine - Family Medicine [address] [place] [id number] Rogers Goddard, SOLAR PHOTOVOLTAIC DESIGNER-PLAN EXAMINER [address] [place] [address] [facility] Internal Medicine - Family Medicine Start: 10-31-2024 Adult BMI Screening Adult BMI Screen ing [facility] Start: 10-31-2024 Depression Screening Depression Scre ening [facility] Start: 10-31-2024 Tobacco Screening Tobacco Screening [facility] Start: 10-20-2024 End: 10-20-2024 Patient encounter procedure 10/20/2024 8:30 AM EST Office Visit [facility] [address] [facility] [address] [place] [address] Jose Elias Lucero MD [address] [facility] [address] [place] [address] Arrived [facility] Comment on above: Arrived Start: 08-04-2024 End: 08-04-2024 Patient encounter procedure 08/04/2024 8:20 AM EST Office Visit [facility] Internal Medicine - Family Medicine [address] [place] [address] Rogers Goddard, SOLAR PHOTOVOLTAIC DESIGNER-PLAN EXAMINER [address] [place] [address] [facility] Internal Medicine - Family Medicine Start: 07-24-2024 Screening for malign ant neoplasm of breast [facility] Start: 07-21-2024 End: 07-21-2024 Patient encounter procedure 07/21/2024 8:30 AM EST Office Visit [facility] [address] [facility] [address] [place] [address] Jose Elias Lucero MD [address] [facility] [address] [place] [address] Arrived [facility] Comment on above: Arrived Start: 07-08-2024 Adult BMI Screening Adult BMI Screen ing [facility] Start: 07-08-2024 Depression Screening Depression Scre ening [facility] Start: 07-08-2024 Tobacco Screening Tobacco Screening [facility] Start: 05-17-2024 Covid-19 Vaccine ( season) Covid-19 Vaccine ( season) [facility] Start: 05-17-2024 Covid-19 Vaccine ( season) Covid-19 Vaccine ( season) [facility] Start: 05-17-2024 Influenza vaccination [facility] Start: 01-31-2024 End: 01-31-2024 Patient encounter procedure 01/31/2024 8:30 AM EDT Office Visit [facility] Internal Medicine - Family Medicine [address] [place] [address] Shirlene Finn, SOLAR PHOTOVOLTAIC DESIGNER-[facility] [address] [place] [place] [address] [facility] Internal Medicine - Family Medicine Start: 01-20-2024 End: 01-20-2024 Patient encounter procedure 01/20/2024 8:30 AM EDT Office Visit [facility] [address] [facility] [address] [place] [address] Jose Elias Lucero MD [address] [facility] [address] [place] [address] [facility] Start: 12-16-2023 End: 12-16-2023 Patient encounter procedure 12/16/2023 8:30 AM EDT Office Visit [facility] [address] [facility] [address] [place] [address] Jose Elias Lucero MD [address] [facility] [address] [place] [address] [facility] Start: 11-18-2023 End: 11-18-2023 Patient encounter procedure 11/18/2023 8:30 AM EST Office Visit [facility] [address] [facility] [address] [place] [address] Jose Elias Lucero MD [address] [facility] [address] [place] [address] [facility] Start: 10-24-2023 Screening for malign ant neoplasm of colon [facility] Start: 10-21-2023 End: 10-21-2023 Patient encounter procedure [facility] Comment on above: Arrived Start: 07-19-2023 Mammography MAMMOGRAM [facility] Start: 05-17-2023 Influenza vaccination [facility] Start: 09-16-2022 DEPRESSION ASSESSMENT DEPRESSION ASS ESSMENT [facility] Start: 05-17-2022 Influenza vaccination INFLUENZA (#1) [facility] Start: 02-08-2022 End: 03-04-2023 Ct soft tissue neck w/contrast material CT NECK SOFT TISSUE W IVCON Radiology Routine Larynx cancer (HCC) Expected: 02/08/2022, Expires: 03/04/2023 [facility] Work Phone: Comment on above: Expected: 02/08/2022 , Expires: 03/04/2023 Start: 01-13-2022 COVID-19 VACCINE (4 - Booster for Pfizer series) COVID-19 VACCINE (4 - Booster for Pfizer series) [facility] Start: 11-09-2021 COVID-19 VACCINE (4 - Booster for Pfizer series) COVID-19 VACCINE (4 - Booster for Pfizer series) [facility] Start: 11-09-2021 COVID-19 VACCINE (4 - Pfizer series) COVID-19 VACCINE (4 - Pfizer series) [facility] Start: 09-16-2021 DEPRESSION ASSESSMENT DEPRESSION ASS ESSMENT [facility] Start: 2019 RSV Vaccine (1 - 1-d ose 60+ series) RSV Vaccine (1 - 1-dose 60+ series) [facility] Start: 12-04-2009 Influenza vaccination LUNG CANCER SC REENING [facility] Start: 12-04-2009 SHINGRIX VACCINE (1 of 2) SHINGRIX VACCINE (1 of 2) [facility] Start: 12-04-2004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 Recent examination by Dr. Lucero earlier this month on 04/20/2023 was without concern for disease recurrence on head and neck examination. She will continue her scheduled follow-up with Dr. Lucero and I will plan to see her back in approximately 1 year. The patient is aware to contact the clinic in the interim should any questions or concerns arise. Thank you for allowing us to participate in the care of this patient. Signed by: Kelvin De La Fuente MD I spent a total of 20 minutes on the date of the service which included preparing to see the patient, [id number] patient care, and counseling and educating the patient/family/caregiver. This document has been created with the use of voice recognition technology. It may contain inaccuracies, misspellings, inaccurate syntax or inappropriate word context that are a result of the inadequacies/shortcomings of said technology/software. documented in this encounter [facility] 12-01-2023 History of Present illness Narrative The OARRS/MAPPS database was reviewed today and found to be appropriate. No indication of medication diversion, or non compliance. SHAUNA Morse 12/01/23 0848 [facility] History of Present illness Narrative Subjective Patient ID: Manuela Null is a 62 y.o. female. Here for her controlled substance recheck She lately has had more headaches and hot flashes She is concerned re her thyroid which possibly could have been affected with her chemo/radiation Her neck is still the same although now she is retired and not working everyday aggravating it She continues to have a lot of lower back pain and pain radiating down her left leg She is currently satisfied with the level of pain relief from her medication The following portions of the patient's history were reviewed and updated as appropriate: allergies, current medications, past family history, past medical history, past social history, past surgical history, problem list, and medication reconciliation was completed including current medication and post discharge medication. Review of Systems Constitutional: Negative. HENT: Negative. Eyes: Negative. Respiratory: Negative. Cardiovascular: Negative. Endocrine: Negative. Genitourinary: Negative. Musculoskeletal: Positive for arthralgias, back pain and myalgias. Skin: Negative. Neurological: Positive for headaches. Psychiatric/Behavioral: Negative. Objective Physical Exam Vitals and nursing note reviewed. Constitutional: Appearance: Normal appearance. She is normal weight. Eyes: Conjunctiva/sclera: Conjunctivae normal. Neck: Vascular: No carotid bruit. Cardiovascular: Rate and Rhythm: Normal rate and regular rhythm. Heart sounds: Normal heart sounds. No murmur heard. Pulmonary: Effort: Pulmonary effort is normal. Breath sounds: Normal breath sounds. Musculoskeletal: General: Tenderness (lumbar paraspinals) present. Cervical back: Tenderness present. Right lower leg: No edema. Left lower leg: No edema. Lymphadenopathy: Cervical: No cervical adenopathy. Skin: General: Skin is warm and dry. Capillary Refill: Capillary refill takes less than 2 seconds. Neurological: Mental Status: She is oriented to person, place, and time. Psychiatric: Behavior: Behavior normal. Thought Content: Thought content normal. Judgment: Judgment normal. Assessment/Plan Manuela was seen today for controlled sub. Diagnoses and all orders for this visit: Chronic bilateral low back pain without sciatica Hot flashes - Thyroid profile includes TSH FT4; Future On potassium sparing diuretic therapy - Comprehensive metabolic panel; Future Neck pain, chronic Continue current pain regimen With her worsening hot flashes and her history of chemo and radiation will again check her thryoid function She is on spironolactone so will also check her cmp Await results Blood pressure is very stable The OARRS/MAPPS database was reviewed today and found to be appropriate. No indication of medication diversion, or non compliance. SHAUNA Morse 10/31/23 1309 documented in this encounter [facility] 10-21-2023 History of Present illness Narrative Subjective Patient ID: Manuela Null is a 62 y.o. female who presents for Cancer (1 month follow up) Review of Systems All other systems reviewed and are negative. 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 Resolved Ambulatory Problems Diagnosis Date Noted Actinic keratosis 06/18/2022 Chronic bilateral low back pain without sciatica 06/18/2022 Neck pain, chronic 12/24/2022 Fatigue 06/18/2022 [facility] lumbar spine [place] 06/18/2022 Fracture of pelvis ([facility] 06/18/2022 Rosacea 06/18/2022 Past Medical History: Diagnosis Date Cancer ([facility] 01/23/2022 Fracture of lumbosacral spine ([facility] Sinusitis Past Surgical History: Procedure Laterality Date LARYNGOSCOPY 01/23/2022 with bx of left TVC lesion, Dr. Lucero Allergies Allergen Reactions Moxifloxacin Other Reaction(s): throat swelling Current Outpatient Medications on File Prior to Visit Medication Sig Dispense Refill yetkniulnf-nipegtpnkgutb-dszyrzw e-codeine (Fioricet W/Codeine) 75-004-24-30 MG capsule Take 1 capsule by mouth every 4 (four) hours if needed. cholecalciferol (Vitamin D-3) 50 MCG (2000 UT) capsule Take 2,000 Units by mouth 1 (one) time each day at the same time. cyclobenzaprine (Flexeril) 10 MG tablet Take 10 mg by mouth at bedtime. estradiol (Vivelle-DOT) 0.05 MG/24HR Place 1 patch on the skin 1 (one) time per week. famotidine (Pepcid) 20 MG tablet Take 20 mg by mouth in the morning. FLUoxetine (PROzac) 20 MG capsule Take 20 mg by mouth 1 (one) time each day at the same time. fluticasone (Flonase) 50 MCG/ACT nasal spray Administer 1 spray into each nostril in the morning. LORazepam (Ativan) 0.5 MG tablet Take 0.5 mg by mouth 1 (one) time each day at the same time. prn Meclizine HCl 25 MG chewable tablet 1 (one) time each day at the same time. omeprazole (PriLOSEC) [address] capsule Take 40 mg by mouth in the morning. Take before meals. Sennosides (Senna) 8.6 MG capsule Senna spironolactone (Aldactone) 25 MG tablet Take 25 mg by mouth 1 (one) time. prn No current facility-administered medications on file prior to visit. Objective Last Recorded Vitals Vitals: 10/21/23 0821 BP: 109/83 ENT Physical Exam Constitutional Appearance: patient appears well-developed and well-nourished, Oral Cavity/Oropharynx OC/OP comments: OC/OP/IDL - no mass or ulcer Neck Neck comments: Supple, FROM, No LAD Assessment/Plan Diagnoses and all orders for this visit: Cancer of vocal cord (CMS/HCC) GIANFRANCO today. Monthly till 09/2023 documented in this encounter [facility] 05-07-2023 History of Present illness Narrative Patient Declined Social Work Assessment Patient appears on the [facility] Report for a NCN score of 8. Questionnaire was completed during her follow up visit on 05/06/23. referral was declined. AGUSTIN Angel-Jessica documented in this encounter [facility] 05-06-2023 History of Present illness Narrative Radiation Oncology - Follow Up [...] mg tab spironolactone (ALDACTONE) 25 mg tablet Hlglkkqcwa-Zxf-Siqspnyizl-Caf 27-212-92-30 mg per capsule diphenhydrAMINE 12.5 mg/5 mL [...] which included preparing to see the patient, byua-si-exqp patient care, and counseling and educating the patient/family/caregiver. This document has been created with the use of voice recognition technology. It may contain inaccuracies, misspellings, inaccurate syntax or inappropriate word context that are a result of the inadequacies/shortcomings of said technology/software. documented in this encounter [facility] 01-16-2023 Miscellaneous Notes Records faxed to [facility] per patient request. documented in this encounter [facility] 08-16-2022 History of Present illness Narrative Radiation Oncology - Follow Up [...] mg tab spironolactone (ALDACTONE) 25 mg tablet Gwlqksbyrs-Zmm-Flvpmzcllg-Caf 87-106-00-30 mg per capsule PHYSICAL EXAM: GENERAL: middle-aged [...] which included preparing to see the patient, odla-lk-rzuf patient care, and counseling and educating the patient/family/caregiver. This document has been created with the use of voice recognition technology. It may contain inaccuracies, misspellings, inaccurate syntax or inappropriate word context that are a result of the inadequacies/shortcomings of said technology/software. documented in this encounter [facility] 06-11-2022 History of Present illness Narrative Radiation Oncology - Follow Up [...] of said technology/software. documented in this encounter [facility] 05-31-2022 Miscellaneous Notes Pts spouse LM requesting refill on hydrocodone liquid. Call placed to pt and she staets she is doing a little better, but still struggling to eat any solid foods. She is mostly drinking boost and pushing fluids. She is very hoarse and still feels she has a 'lump' in the throat. [facility] [place]. MARY- please sign if agreeable. Maranda Estrada, ERIC documented in this encounter [facility] 05-14-2022 History of Present illness Narrative [facility] Radiation Oncology Department RADIATION ONCOLOGY - [...] Signed cc: Jose Elias Lucero MD [address] [facility] [address] [address] Anatoliy Tamayo DO [address] [facility] [id number] [address] documented in this encounter [facility] 05-09-2022 History of Present illness Narrative Oncology Nutrition Therapy Progress Note [...] up: will continue to follow Referred/Supervised by: Sudhakar/Sudhakar SIMON Billing Type: Re-assess/15 min 1 unit Billed Time: 15 minutes Signed by: Kim Londono MS, NATY, ZEN documented in this encounter [facility] 05-09-2022 History of Present illness Narrative Radiation Oncology - On Treatment [...] La Fuente MD documented in this encounter [facility] 05-03-2022 History of Present illness Narrative Oncology Nutrition Therapy Progress Note [...] up: will continue to follow Referred/Supervised by: Sudhakar/Sudhakar SIMON Billing Type: Re-assess/15 min 1 unit Billed Time: 15 minutes Signed by: Kim Londono MS, NATY, ZEN documented in this encounter [facility] 05-02-2022 History of Present illness Narrative Radiation Oncology - On Treatment [...] La Fuente MD documented in this encounter [facility] 04-26-2022 Miscellaneous Notes Patient has been added to Epic. Luda Castle Patient here for radiation stating she discussed with Dr. De La Fuente the option of receiving IV hydration on Saturday and she would like to go ahead and schedule the appt. I spoke to Katelyn Valenzuela RN in infusion and she said she can come down after her radiation therapy. Eleesha: Will you please add Manuela on for IV hydration in infusion on 04/27 at 9:30 for one hour? 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 documented in this encounter [facility] 04-24-2022 Miscellaneous Notes Manuela is here for her radiation therapy with c/o increasing throat pain. She said she it is difficult to swallow. She is currently using BMX every 6 hours or more frequently due to the pain, and alternating Tylenol with ibuprofen. She said Dr. De La Fuente mentioned prescribing something else with increased pain. Please send prescription to [facility] in [place]. Hycet liquid prescription pending your approval if in agreement. Mirna Avendaño LPN documented in this encounter [facility] 04-19-2022 Miscellaneous Notes Pt calls stating MARY was going to send numbing medicine in for her throat and [facility] Has not received it. KIN- please sign BMX Rx. Maranda Estrada RN documented in this encounter [facility] 04-12-2022 History of Present illness Narrative Nutrition Therapy Progress Note This [...] up: will continue to follow Referred/Supervised by: Sudhakar/Sudhakar SIMON Billing Type: Re-assess/15 min 1 unit Billed Time: 15 minutes Signed by: Kim Londono MS, NATY, ZEN documented in this encounter [facility] 04-09-2022 History of Present illness Narrative Radiation Oncology - On Treatment [...] La Fuente MD documented in this encounter [facility] 04-09-2022 Nurse Note Status: Post-menopausal. documented in this encounter [facility] 04-05-2022 Miscellaneous Notes Referral from Shantelle PEREZ-Benefit investigation completed. Patient is active with [facility], LOC 80%, $100 deductible has $0 remaining, $5000 OOP has $4053.78 remaining. Estimate shows patient financial responsibility is $186.15 for each treatment in 2021 until oop max is reached. Called the patient to discuss, left a voicemail to return call. Estimate Reference #[id number] Of note: Patient does hold an extra policy with the RR that looks like it may cover her expenses in full but not sure until I speak with the patient. As well, I will tell her about the gas card program with [employer] and enroll her if she provides permission. This will give her a $50 card. documented in this encounter [facility] 04-05-2022 History of Present illness Narrative SOCIAL WORK FOLLOW UP NOTE: [...] brought in an intake form for the [facility] [employer] SW completed the medical portion of the intake and faxed it to Rin at the [facility]. had a few questions about co-pay assistance programs. SW provided contact information for TIFFANY Munoz. SW messaged Tammy regarding the above. SW will remain available and will follow up as appropriate. LINDY Angel documented in this encounter [facility] 03-30-2022 Miscellaneous Notes Manuela Null called today [...] company will you please notify Manuela at [phone]? Thanks Jennifer documented in this encounter [facility] 03-12-[address] De La Fuente, patient has decided to wait for the appeal process. Maranda Estrada, RN 1147 Manuela called to see if we've received [...] .Mirna Avendaño LPN documented in this encounter [facility] 02-19-2022 History of Present illness Narrative Radiation Oncology - Follow Up Note PATIENT NAME: Manuela Null PATIENT Signed by: Kelvin De La Fuente MD I spent a total of 20 minutes on the date of the service which included preparing to see the patient, [id number] patient care and counseling and educating the patient/family/caregiver. This document has been created with the use of voice recognition technology. It may contain inaccuracies, misspellings, inaccurate syntax or inappropriate word context that are a result of the inadequacies/shortcomings of said technology/software. documented in this encounter [facility] 02-19-2022 History of Present illness Narrative MANUELA NULL [id number] 02/19/2022 [facility] Radiation Oncology Department SIMULATION NOTE DATE OF SIMULATION: 02/19/2022 THERAPIST: Sherman Saldana MACHINE: Supersolid mCT DIAGNOSIS: Malignant neoplasm of larynx, [id number] AREA: CONTRAST: IV <Select> Consent in Epic: [...] Kelvin De La Fuente M.D. / TLR :10 PM documented in this encounter [facility] 02-19-2022 History of Present illness Narrative MANUELA NULL [id number] 02/19/2022 [facility] Department of Radiation Oncology Treatment Planning [...] ports and DVH. Electronically Signed Kelvin De L aFuente M.D. :11 AM documented in this encounter [facility] 02-16-2022 History of Present illness Narrative Nutrition Therapy Initial Assessment RECOMMENDED [...] TAKE 1 TABLET BY MOUTH ONE DAILY Pvujvcnhur-Zyj-Tbaecqxycw-Caf 93-345-93-30 mg per capsule butalbital 50 mg-acetaminophen 325 mg-caffeine 40 mg-codeine 30 mg cap take 1 capsule by mouth twice a day No current facility-administered medications for this visit. Need for Follow up: will continue to follow Referred/Supervised by: Sudhakar/Sudhakar SIMON Billing Type: Initial Assess/15 min 3 units Billed Time: 45 minutes Signed by: Kim Londono MS, RDN, LD documented in this encounter [facility] 02-16-2022 History of Present illness Narrative Radiology Service Progress Note PATIENT NAME: Manuela Null DATE OF SERVICE: February 16, 2022 TIME: 12:55 PM PATIENT IDENTITY VERIFICATION COMPLETED USING TWO (2) IDENTIFIERS: Name and Date of confirmed by patient verbally. FALL SCREENING: Has the patient had 2 falls in the last year or 1 fall with injury or currently using an Ambulatory Assistive Device (Walker, Cane, Wheelchair, Crutches, etc.)? No PATIENT GENDER DATA: Female. status: : No status: NO. PATIENT RELEVANT IMPLANT DATA REVIEWED: Not Applicable RADIOLOGY DEPARTMENT: CT; Exam(s) Completed: Neck PERIPHERAL IV DATA: Site assessment: Clean,Dry and Intact, Site disposition Discontinued SIGNED BY: RT Jennifer(R) February 16, 2022 12:55 PM documented in this encounter [facility] 02-16-2022 Nurse Note Radiology Service Progress Note DATE OF SERVICE: February 16, 2022 TIME: 12:48 PM PATIENT WEIGHT: 138LBS PATIENT IDENTITY VERIFICATION COMPLETED USING TWO (2) STANDARD IDENTIFIERS: Name and Date of confirmed by patient verbally. FALL SCREENING: Has the patient had 2 falls in the last year or 1 fall with injury or currently using an Ambulatory Assistive Device (Walker, Cane, Wheelchair, Crutches, etc.)? No PATIENT GENDER DATA: Female. status: : No status: N/A ALLERGIES: Reviewed and unchanged CONTRAST ALLERGY: No EXAM: CT -CONTRAST INDUCED NEPHROPATHY RISK FACTORS: Patient age > 60 years CREATININE: Creatinine Date Value Ref Range Status 02/02/2022 0.64 0.58 - 0.96 mg/dL Final Estimated Glomerular Filtration Rate Date Value Ref Range Status 02/02/2022 100 >=60 mL/min/1.73m Final Comment: Estimated Glomerular Filtration Rate (eGFR) is calculated using the 2020 CKD-EPI creatinine equation. This equation utilizes serum creatinine, sex, and age as parameters. The creatinine assay has traceable calibration to isotope dilution-mass spectrometry. Refer to KDIGO guidelines for clinical interpretation. In patients with unstable renal function, e.g. those with acute kidney injury, the eGFR may not accurately reflect actual GFR. P.O.C.T. RESULTS: POC done: Yes, See Lab Tab February 02, 2022 TREATMENT: No Hydration needed. IV SITE: Ambulatory: A peripheral IV was started in the Right forearm with a Angio cath: 20 gauge. IV SITE APPEARANCE: Clean,Dry and Intact SIGNATURE: Ingrid Galvan RN PATIENT NAME: Manuela Null DATE: February 16, 2022 TIME: 12:48 PM [facility] 02-16-2022 Nurse Note Radiology Service Progress Note DATE OF SERVICE: February 16, 2022 TIME: 12:48 PM PATIENT WEIGHT: 138LBS PATIENT IDENTITY VERIFICATION COMPLETED USING TWO (2) STANDARD IDENTIFIERS: Name and Date of confirmed by patient verbally. FALL SCREENING: Has the patient had 2 falls in the last year or 1 fall with injury or currently using an Ambulatory Assistive Device (Walker, Cane, Wheelchair, Crutches, etc.)? No PATIENT GENDER DATA: Female. status: : No status: N/A ALLERGIES: Reviewed and unchanged CONTRAST ALLERGY: No EXAM: CT -CONTRAST INDUCED NEPHROPATHY RISK FACTORS: Patient age > 60 years CREATININE: Creatinine Date Value Ref Range Status 02/02/2022 0.64 0.58 - 0.96 mg/dL Final Estimated Glomerular Filtration Rate Date Value Ref Range Status 02/02/2022 100 >=60 mL/min/1.73m Final Comment: Estimated Glomerular Filtration Rate (eGFR) is calculated using the 2020 CKD-EPI creatinine equation. This equation utilizes serum creatinine, sex, and age as parameters. The creatinine assay has traceable calibration to isotope dilution-mass spectrometry. Refer to KDIGO guidelines for clinical interpretation. In patients with unstable renal function, e.g. those with acute kidney injury, the eGFR may not accurately reflect actual GFR. P.O.C.T. RESULTS: POC done: Yes, See Lab Tab February 02, 2022 TREATMENT: No Hydration needed. IV SITE: Ambulatory: A peripheral IV was started in the Right forearm with a Angio cath: 20 gauge. IV SITE APPEARANCE: Clean,Dry and Intact SIGNATURE: Ingrid Galvan RN PATIENT NAME: Manuela Null DATE: February 16, 2022 TIME: 12:48 PM documented in this encounter [facility] 02-02-2022 History of Present illness Narrative Images from the original note were not included. Radiation Oncology - New Patient/Consult Note PATIENT NAME: Manuela Null PATIENT REQUESTING PHYSICIAN: Dr. 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 PATIENT IDENTIFICATION: This patient was seen in the Department of Radiation Oncology at the [facility] with Kelvin De La Fuente MD. She was accompanied today by family. Final recommendations will be communicated back to the requesting physician by way of the shared medical record, or letter to requesting physician via US mail. HISTORY OF PRESENT ILLNESS: Ms. Null is a 61-year-old woman from [place], [place] who reports having developed gradually hoarseness [...] has 2 children, and lives in the [place], [place] area. She is employed as a [employer]'s reports having quit smoking in 2011 with [...] mg tab spironolactone (ALDACTONE) 25 mg tablet Wdafijdzba-Rgh-Xszhbvvvkp-Caf 65-358-80-30 mg per capsule PHYSICAL EXAMINATION: GENERAL: middle-aged [...] bladder cancer. I spent over 50 minutes wnwi-ec-qzgx with the patient and her family with [...] which included preparing to see the patient, plqd-qa-pqqu patient care and counseling and educating the patient/family/caregiver. This document has been created with the use of voice recognition technology. It may contain inaccuracies, misspellings, inaccurate syntax or inappropriate word context that are a result of the inadequacies/shortcomings of said technology/software. documented in this encounter [facility] 02-02-2022 Nurse Note Manuela Null presents in office today for: Lab Draw during Office Visit . Ordering Provider: Kelvin De La Fuente M.D. Test (s) ordered: creatinine Method for obtaining blood: Phlebotomy was performed, accessing right antecubital vein. Needle removed intact. Dressing secured. Patient denies discomfort, dizziness, light-headedness or weakness and left the department without assist. Mirna Avendaño LPN documented in this encounter [facility] 02-02-2022 Nurse Note Radiation Therapy - Patient Education Note PATIENT NAME: Manuela Null PATIENT February 02, 2022 [facility] FAC[facility]LOCATION: [facility] READINESS TO LEARN Cognitive Ability: Alert and [...] Mirna Avendaño LPN documented in this encounter [facility] 01-23-2022 Note OP Note OPERATION DATE: 01/23/2022 [...] to the recovery room in good condition. [facility] Signed and Approved by: DR JOSE ELIAS LUCERO 01/24/2022 07:48:00 [facility] Evaluation note Diagnosis Larynx cancer (HCC)- Primary Malignant neoplasm of larynx, unspecified site [facility] Diagnosis Larynx cancer (HCC) Malignant neoplasm of larynx, unspecified site [facility] Larynx cancer (HCC)- Primary Malignant neoplasm of larynx, unspecified site [facility] Diagnosis Larynx cancer (HCC)- Primary Malignant neoplasm of larynx, unspecified site [facility] Diagnosis Larynx cancer (HCC)- Primary Malignant neoplasm of larynx, unspecified site [facility] Diagnosis Larynx cancer (HCC)- Primary Malignant neoplasm of larynx, unspecified site [facility]* Diagnosis Larynx cancer (HCC)- Primary Malignant neoplasm of larynx, unspecified site [facility] Diagnosis Larynx cancer (HCC)- Primary Malignant neoplasm of larynx, unspecified site [facility] Diagnosis Cancer of larynx (HCC)- Primary Malignant neoplasm of larynx, unspecified site [facility] Diagnosis Larynx cancer (HCC)- Primary Malignant neoplasm of larynx, unspecified site [facility] Diagnosis Cancer of larynx (HCC)- Primary Malignant neoplasm of larynx, unspecified site [facility]* Diagnosis Larynx cancer (HCC)- Primary Malignant neoplasm of larynx, unspecified site [facility] Diagnosis Larynx cancer (HCC) Malignant neoplasm of larynx, unspecified site [facility]* Diagnosis Cancer of larynx (HCC)- Primary Malignant neoplasm of larynx, unspecified site [facility] Diagnosis Larynx cancer (HCC)- Primary Malignant neoplasm of larynx, unspecified site [facility]* Diagnosis Larynx cancer (HCC)- Primary Malignant neoplasm of larynx, unspecified site [facility]* Diagnosis Larynx cancer (HCC)- Primary Malignant neoplasm of larynx, unspecified site [facility] Diagnosis Larynx cancer (HCC)- Primary Malignant neoplasm of larynx, unspecified site [facility]* Diagnosis Chronic neck and back pain [facility] Diagnosis Chronic bilateral low back pain without sciatica [facility]* Diagnosis 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 [facility]* Diagnosis Neck pain, chronic- Primary Chronic bilateral low back pain without sciatica Hot flashes On potassium sparing diuretic therapy [facility] Special screening for malignant neoplasm of colon- Primary Special screening for malignant neoplasms, colon [facility] Chronic [facility] and back [facility] Diagnosis Vitamin D deficiency [facility] Diagnosis Larynx cancer (HCC)- Primary Malignant neoplasm of larynx, unspecified site [facility] Diagnosis Larynx cancer (HCC) Malignant neoplasm of larynx, unspecified site [facility] Diagnosis Chronic neck and back pain [facility] Diagnosis 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 [facility]* Diagnosis Neck pain, chronic- Primary Vertigo Dizziness and giddiness Chronic bilateral low back pain without sciatica [facility]* Diagnosis Chronic neck and back pain [facility] Diagnosis 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 [facility] filedocumented in this [facility]ructionsNot on filedocumented in this encounterProMedica Health SystemInstructionsNot on filedocumented in this encounterProMedica Health SystemInstructionsNot on filedocumented in this encounterProMedica [facility] InstructionsNot on filedocumented in this encounterProMedica [facility] InstructionsNot on filedocumented in this encounterProMedica Health System Instructions* Attachments The following attachments cannot be sent through Care Everywhere. * Dizziness, Adult ED (Bulgarian) documented [facility] System[facility]ructionsNot on file documented in this encounterProMedica Health SystemReason for referral (narrative)* Diagnostic Procedure Only (Routine) - Pending Review Specialty Diagnoses / Procedures Referred By [facility] t Referred To Contact XR IMAGING Diagnoses Larynx cancer (HCC) Procedures XR MODIFIED BARIUM SWALLOW W SPEECH THERAPY RADIOLOGIC EXAM SWALLOW FUNCTION CONTRAST STUDY Kelvin De La Fuente MD [address] [place] [address] [place] [address] Xr Imaging Referral ID Status Reason Start Date Expiration Date Visits Requested Visits Authorized [id number] Pending Review Auto-Generat ed Referral 06/11/2022 07/11/2023 1 1 [facility] Summary Purpose Family History No Family History [...] Referral Specialty Diagnoses / Procedures Referred By [facility] Referred To Contact CT IMAGING Diagnoses Larynx cancer (HCC) Procedures CT NECK SOFT TISSUE W IVCON CT SOFT TISSUE NECK W/CONTRAST MATERIAL Kelvin De La Fuente MD [address] [place] [address] [place] [address] Ct [facility] Referral ID Status Reason Start Date Expiration Date Visits Requested Visits Authorized [id number] Authorized Auto-Generat ed Referral 02/08/2022 03/04/2023 1 1 Specialty Diagnoses / Procedures Referred By [facility] Referred To Contact CT IMAGING Diagnoses Larynx cancer (HCC) Procedures CT NECK SOFT TISSUE W IVCON CT SOFT TISSUE NECK W/CONTRAST MATERIAL Kelvin De La Fuente MD [address] [place] [address] [place] [address] [place] [address] Referral ID Status Reason Start Date Expiration Date V isits Requested Visits Authorized Closed Auto-Generate d Referral 02/08/2022 03/04/2023 1 1 Medications Administered [...] dose, On Sat05/09/22 at 1100, Per Dr. De La Fuente New Bag/Syringe/Bottle 05/09/2022 11:10 AM EDT 1,000 mL 999 mL/hr Inactive Administered Medications - up to 3 most recent administrations Medication Order MAR Action Action Date Dose Rate Site lactated ringers 1,000 mL iv bolus 1,000 mL, INTRAVENOUS, at 999 mL/hr, Administer over 1 Hours, ONCE, 1 dose, On Sat05/11/22 at 1000, Per Dr. De La Fuente New Bag/Syringe/Bottle 05/11/2022 10:44 AM EDT 1,000 mL 999 mL/hr Additional Source Comments INFORMATION SOURCE (unrecogn ized section and content) DATE CREATED AUTHOR 12/07/2021 [facility] DATE CREATED AUTHOR AUTHOR'S ORGANIZ ATION 07/23/2022 [facility] DATE CREATED AUTHOR AUTHOR'S ORGANIZ ATION 11/02/2023 [facility] DATE CREATED AUTHOR AUTHOR'S ORGANIZ ATION 05/27/2024 [facility] DATE CREATED AUTHOR AUTHOR'S ORGANIZ ATION 08/06/2024 [facility] DATE CREATED AUTHOR AUTHOR'S ORGANIZ ATION 10/21/2024 [facility] EPIC Source Comments (unrecognize d section and content) In the event this informatio n is protected by the Federal Confidentiality of Alcohol and Drug Abuse Patient Records regulations: The Federal rules restrict any use of the information to criminally investigate or prosecute any alcohol or drug abuse patient.[facility] the event this information is protected by the Federal Confidentiality of Alcohol and Drug Abuse Patient Records regulations: The Federal rules restrict any use of the information to criminally investigate or prosecute any alcohol or drug abuse patient.[facility] the event this information is protected by the Federal Confidentiality of Alcohol and Drug Abuse Patient Records regulations: The Federal rules restrict any use of the information to criminally investigate or prosecute any alcohol or drug abuse patient.[facility] the event this information is protected by the Federal Confidentiality of Alcohol and Drug Abuse Patient Records regulations: The Federal rules restrict any use of the information to criminally investigate or prosecute any alcohol or drug abuse patient.[facility] the event this information is protected by the Federal Confidentiality of Alcohol and Drug Abuse Patient Records regulations: The Federal rules restrict any use of the information to criminally investigate or prosecute any alcohol or drug abuse patient.[facility] the event this information is protected by the Federal Confidentiality of Alcohol and Drug Abuse Patient Records regulations: The Federal rules restrict any use of the information to criminally investigate or prosecute any alcohol or drug abuse patient.[facility] the event this information is protected by the Federal Confidentiality of Alcohol and Drug Abuse Patient Records regulations: The Federal rules restrict any use of the information to criminally investigate or prosecute any alcohol or drug abuse patient.[facility] the event this information is protected by the Federal Confidentiality of Alcohol and Drug Abuse Patient Records regulations: The Federal rules restrict any use of the information to criminally investigate or prosecute any alcohol or drug abuse patient.[facility] the event this information is protected by the Federal Confidentiality of Alcohol and Drug Abuse Patient Records regulations: The Federal rules restrict any use of the information to criminally investigate or prosecute any alcohol or drug abuse patient.[facility] the event this information is protected by the Federal Confidentiality of Alcohol and Drug Abuse Patient Records regulations: The Federal rules restrict any use of the information to criminally investigate or prosecute any alcohol or drug abuse patient.[facility] the event this information is protected by the Federal Confidentiality of Alcohol and Drug Abuse Patient Records regulations: The Federal rules restrict any use of the information to criminally investigate or prosecute any alcohol or drug abuse patient.[facility] the event this information is protected by the Federal Confidentiality of Alcohol and Drug Abuse Patient Records regulations: The Federal rules restrict any use of the information to criminally investigate or prosecute any alcohol or drug abuse patient.[facility] the event this information is protected by the Federal Confidentiality of Alcohol and Drug Abuse Patient Records regulations: The Federal rules restrict any use of the information to criminally investigate or prosecute any alcohol or drug abuse patient.[facility] the event this information is protected by the Federal Confidentiality of Alcohol and Drug Abuse Patient Records regulations: The Federal rules restrict any use of the information to criminally investigate or prosecute any alcohol or drug abuse patient.[facility] the event this information is protected by the Federal Confidentiality of Alcohol and Drug Abuse Patient Records regulations: The Federal rules restrict any use of the information to criminally investigate or prosecute any alcohol or drug abuse patient.[facility] the event this information is protected by the Federal Confidentiality of Alcohol and Drug Abuse Patient Records regulations: The Federal rules restrict any use of the information to criminally investigate or prosecute any alcohol or drug abuse patient.[facility] the event this information is protected by the Federal Confidentiality of Alcohol and Drug Abuse Patient Records regulations: The Federal rules restrict any use of the information to criminally investigate or prosecute any alcohol or drug abuse patient.[facility] the event this information is protected by the Federal Confidentiality of Alcohol and Drug Abuse Patient Records regulations: The Federal rules restrict any use of the information to criminally investigate or prosecute any alcohol or drug abuse patient.[facility] the event this information is protected by the Federal Confidentiality of Alcohol and Drug Abuse Patient Records regulations: The Federal rules restrict any use of the information to criminally investigate or prosecute any alcohol or drug abuse patient.[facility] the event this information is protected by the Federal Confidentiality of Alcohol and Drug Abuse Patient Records regulations: The Federal rules restrict any use of the information to criminally investigate or prosecute any alcohol or drug abuse patient.[facility] the event this information is protected by the Federal Confidentiality of Alcohol and Drug Abuse Patient Records regulations: The Federal rules restrict any use of the information to criminally investigate or prosecute any alcohol or drug abuse patient.[facility] the event this information is protected by the Federal Confidentiality of Alcohol and Drug Abuse Patient Records regulations: The Federal rules restrict any use of the information to criminally investigate or prosecute any alcohol or drug abuse patient.[facility] the event this information is protected by the Federal Confidentiality of Alcohol and Drug Abuse Patient Records regulations: The Federal rules restrict any use of the information to criminally investigate or prosecute any alcohol or drug abuse patient.[facility] the event this information is protected by the Federal Confidentiality of Alcohol and Drug Abuse Patient Records regulations: The Federal rules restrict any use of the information to criminally investigate or prosecute any alcohol or drug abuse patient.[facility] the event this information is protected by the Federal Confidentiality of Alcohol and Drug Abuse Patient Records regulations: The Federal rules restrict any use of the information to criminally investigate or prosecute any alcohol or drug abuse patient.[facility] the event this information is protected by the Federal Confidentiality of Alcohol and Drug Abuse Patient Records regulations: The Federal rules restrict any use of the information to criminally investigate or prosecute any alcohol or drug abuse patient.[facility] the event this information is protected by the Federal Confidentiality of Alcohol and Drug Abuse Patient Records regulations: The Federal rules restrict any use of the information to criminally investigate or prosecute any alcohol or drug abuse patient.[facility] the event this information is protected by the Federal Confidentiality of Alcohol and Drug Abuse Patient Records regulations: The Federal rules restrict any use of the information to criminally investigate or prosecute any alcohol or drug abuse patient.[facility] the event this information is protected by the Federal Confidentiality of Alcohol and Drug Abuse Patient Records regulations: The Federal rules restrict any use of the information to criminally investigate or prosecute any alcohol or drug abuse patient.[facility] the event this information is protected by the Federal Confidentiality of Alcohol and Drug Abuse Patient Records regulations: The Federal rules restrict any use of the information to criminally investigate or prosecute any alcohol or drug abuse patient.[facility] the event this information is protected by the Federal Confidentiality of Alcohol and Drug Abuse Patient Records regulations: The Federal rules restrict any use of the information to criminally investigate or prosecute any alcohol or drug abuse patient.[facility] the event this information is protected by the Federal Confidentiality of Alcohol and Drug Abuse Patient Records regulations: The Federal rules restrict any use of the information to criminally investigate or prosecute any alcohol or drug abuse patient.[facility] the event this information is protected by the Federal Confidentiality of Alcohol and Drug Abuse Patient Records regulations: The Federal rules restrict any use of the information to criminally investigate or prosecute any alcohol or drug abuse patient.[facility] the event this information is protected by the Federal Confidentiality of Alcohol and Drug Abuse Patient Records regulations: The Federal rules restrict any use of the information to criminally investigate or prosecute any alcohol or drug abuse patient.[facility] the event this information is protected by the Federal Confidentiality of Alcohol and Drug Abuse Patient Records regulations: The Federal rules restrict any use of the information to criminally investigate or prosecute any alcohol or drug abuse patient.[facility] the event this information is protected by the Federal Confidentiality of Alcohol and Drug Abuse Patient Records regulations: The Federal rules restrict any use of the information to criminally investigate or prosecute any alcohol or drug abuse patient.[facility] Reason for Visit (unrecogniz ed section and [...] Reason Comments Post Radiation Treatment Follow Up Reason Comments Med Refill Reason Comments Cancer 1 month follow up Reason Comments controlled sub Reason Comments Head and Neck Cancer Reason Comments Radiology CT Specialty Diagnoses / Procedures Referred By Contac t Referred To Contact CT IMAGING Diagnoses Larynx cancer (HCC) Procedures CT NECK SOFT TISSUE W IVCON CT SOFT TISSUE NECK W/CONTRAST MATERIAL Kelvin De La Fuente MD [address] [place] [address] [place] [address] [facility] [place] [address] Referral ID Status Reason Start Date Expiration Date V isits Requested Visits Authorized [id number] Closed Auto-Generate d Referral 02/08/2022 03/04/2023 1 1 Specialty Diagnoses / Procedures Referred By Contac t Referred To Contact Radiation Oncology / RADIATION ONCOLOGY Diagnoses Malignant neoplasm of larynx, unspecified SIM/MARY/Neck - IV Contrast Procedures SIMULATION AJ IMRT 28 fractions Kelvin De La Fuente MD [address] [place], [place] [address] [address] Kelvin De La Fuente MD [address] [place] [address] [place] [address] Referral ID Status Reason Start Date Expiration Date Visits Re quested Visits Authorized [id number] Denied 02/19/2022 05/20/2022 29 0 Reason Comments Cancer 3 month check vocal cord CA Reason Comments controlled medications Care Teams (unrecognized sec tion and content) Pony Worker Relationship Specialty Start Date End Date Anatoliy Tamayo, DO [address] [place] [address] PCP - General Family Practice 01/31/22 Pony Worker Relationship Specialty Start Date End Date Anatoliy Tamayo, DO [address] [place] [address] PCP - General Family Practice 01/31/22 Pony Worker Relationship Specialty Start Date End Date Anatoliy Tamayo, DO [address] [place] [address] PCP - General Family Practice 01/31/22 Pony Worker Relationship Specialty Start Date End Date Anatoliy Tamayo, DO [address] [place] [address] PCP - General Family Practice 01/31/22 Pony Worker Relationship Specialty Start Date End Date Anatoliy Tamayo, DO [address] [place] [address] PCP - General Family Practice 01/31/22 Pony Worker Relationship Specialty Start Date End Date Anatoliy Tamayo, DO [address] [place] [address] PCP - General Family Practice 01/31/22 Shantelle Danielson LSW Aircraft Sales Representative 04/05/22 Pony Worker Relationship Specialty Start Date End Date Anatoliy Tamayo, DO [address] [place] [address] PCP - General Family Practice 01/31/22 Shantelle Danielson LSW Aircraft Sales Representative 04/05/22 Pony Worker Relationship Specialty Start Date End Date FrantzloAnatoliy mohamud, DO [address] [place] [address] PCP - General Family Practice 01/31/22 Shantelle Danielson LSW Aircraft Sales Representative 04/05/22 Pony Worker Relationship Specialty Start Date End Date FrantzloAnatoliy mohamud, DO [address] [place] [address] PCP - General Family Practice 01/31/22 Shantelle Danielson LSW Aircraft Sales Representative 04/05/22 Pony Worker Relationship Specialty Start Date End Date Anatoliy Tamayo, DO [address] [place] [address] PCP - General Family Practice 01/31/22 Shantelle Danielson LSW Aircraft Sales Representative 04/05/22 Pony Worker Relationship Specialty Start Date End Date FrantzloAnatoliy mohamud, DO [address] [place] [address] PCP - General Family Practice 01/31/22 Shantelle Danielson LSW Aircraft Sales Representative 04/05/22 Pony Worker Relationship Specialty Start Date End Date FrantzloAnatoliy mohamud, DO [address] [place] [address] PCP - General Family Practice 01/31/22 Shantelle Danielson LSW Aircraft Sales Representative 04/05/22 Pony Worker Relationship Specialty Start Date End Date FrantzloAnatoliy mohamud, DO [address] [place] [address] PCP - General Family Practice 01/31/22 Shantelle Danielson LSW Aircraft Sales Representative 04/05/22 Pony Worker Relationship Specialty Start Date End Date Furlong, Anatoliy Una, DO [address] [place] [address] PCP - General Family Practice 01/31/22 Shantelle Danielson, PLATER SUPERVISOR Aircraft Sales Representative 04/05/22 Pony Worker Relationship Specialty Start Date End Date Anatoliy Tamayo, DO [address] [place] [address] PCP - General Family Practice 01/31/22 Shantelle Danielson, PLATER SUPERVISOR Aircraft Sales Representative 04/05/22 Pony Worker Relationship Specialty Start Date End Date Anatoliy Tamayo, DO [address] [place] [address] PCP - General Family Practice 01/31/22 Shantelle Danielson PLATER SUPERVISOR Aircraft Sales Representative 04/05/22 Pony Worker Relationship Specialty Start Date End Date Anatoliy Tamayo, DO [address] [place] [address] PCP - General Family Practice 01/31/22 Shantelle Danielson, PLATER SUPERVISOR Aircraft Sales Representative 04/05/22 Pony Worker Relationship Specialty Start Date End Date Anatoliy Tamayo, DO [address] [place] [address] PCP - General Family Medicine 01/31/22 Shantelle Danielson PLATER SUPERVISOR Aircraft Sales Representative 04/05/22 Pony Worker Relationship Specialty Start Date End Date Anatoliy Tamayo, DO [address] [place] [address] PCP - General Family Medicine 01/31/22 Shantelle Danielson, PLATER SUPERVISOR Aircraft Sales Representative 04/05/22 Pony Worker Relationship Specialty Start Date End Date Frantzlooneida Anatoliy Neely, DO [address] [place] [address] PCP - General Family Medicine 01/31/22 Shantelle Danielson, PLATER SUPERVISOR Aircraft Sales Representative 04/05/22 Pony Worker Relationship Specialty Start Date End Date Anatoliy Tamayo DO [address] [place] [address] PCP - General Family Medicine 01/31/22 Shantelle Danielson, [facility] Aircraft Sales Representative 04/05/22 Pony Worker Relationship Specialty Start Date End Date FrantzibrahimaAnatoliy mohamud DO [address] [place] [address] PCP - General Family Medicine 01/31/22 Shantelle Danielson, [facility] Aircraft Sales Representative 04/05/22 Pony Worker Relationship Specialty Start Date End Date FrantzibrahimaAnatoliy mohamud [address] [place] [address] PCP - General Family Medicine 01/31/22 Shantelle Danielson, [facility] Aircraft Sales Representative 04/05/22 Pony Worker Relationship Specialty Start Date End Date Shirlene Finn APRN-GARAGE DOOR TECHNICIAN [address] [place] [address] PCP - General Internal Medicine 10/12/22 Pony Worker Relationship Specialty Start Date End Date Shirlene Finn APRN-GARAGE DOOR TECHNICIAN [address] [place] [address] PCP - General Internal Medicine 10/12/22 Pony Worker Relationship Specialty Start Date End Date Antaoliy Tamayo MD [address] [place] [address] PCP - General Family Medicine 02/17/23 Pony Worker Relationship Specialty Start Date End Date Anatoliy Tamayo MD [address] [place] [place] [address] PCP - General Family Medicine 02/17/23 Pony Worker Relationship Specialty Start Date End Date Shirlene Finn, SOLAR PHOTOVOLTAIC DESIGNER-GARAGE DOOR TECHNICIAN [address] [place] [address] PCP - General Internal Medicine 10/12/22 Pony Worker Relationship Specialty Start Date End Date Shirlene Finn, SOLAR PHOTOVOLTAIC DESIGNER-GARAGE DOOR TECHNICIAN [address] [place] [address] PCP - General Internal Medicine 10/12/22 Pony Worker Relationship Specialty Start Date End Date Shirlene Finn, SOLAR PHOTOVOLTAIC DESIGNER-GARAGE DOOR TECHNICIAN [address] [place] [address] PCP - General Internal Medicine 10/12/22 Pony Worker Relationship Specialty Start Date End Date Shirlene Finn, SOLAR PHOTOVOLTAIC DESIGNER-GARAGE DOOR TECHNICIAN [address] [place] [address] PCP - General Internal Medicine 10/12/22 Pony Worker Relationship Specialty Start Date End Date Shirlene Finn, SOLAR PHOTOVOLTAIC DESIGNER-GARAGE DOOR TECHNICIAN [address] [place] [address] PCP - General Internal Medicine 10/12/22 Pony Worker Relationship Specialty Start Date End Date Anatoliy Tamayo DO [address] [place] [address] PCP - General Family Medicine 01/31/22 Shantelle Danielson LSW Aircraft Sales Representative 04/05/22 Pony Worker Relationship Specialty Start Date End Date Frantzrosy Anatoliy Neely DO [address] [place] [address] PCP - General Family Medicine 01/31/22 Pony Worker Relationship Specialty Start Date End Date Juan Tamayoania Neely [address] [place] [address] PCP - General Family Medicine 01/31/22 Pony Worker Relationship Specialty Start Date End Date Rogers Goddard APRN-[facility] [address] [place] [address] PCP - General Family Medicine 04/21/24 Pony Worker Relationship Specialty Start Date End Date Rogers Goddard APRN-[facility] [address] [place] [address] PCP - General Family Medicine 04/21/24 Pony Worker Relationship Specialty Start Date End Date Anatoliy Tamayo MD [address] [place] [place] [address] PCP - General Family Medicine 02/17/23 Pony Worker Relationship Specialty Start Date End Date Anatoliy Tamayo MD [address] [place] [place] [address] PCP - General Family Medicine 02/17/23 Pony Worker Relationship Specialty Start Date End Date Rogers Goddard, CHRIS-PLAN EXAMINER [address] [place] [address] PCP - General [facility] Medicine 04/21/24 Pony Worker Relationship Specialty Start Date End Date Rogers Goddard APRNPLAN EXAMINER [address] [place] [address] PCP - General [facility] 04/21/24 Pony Worker Relationship Specialty Start Date End Date Anatoliy Tamayo MD [address] [place] [address] PCP - General Family Medicine 02/17/23 FOR RECORDS PERTAINING TO PATIENTS WHO ARE [...] BE BASED ON THE PRIMARY CLINICAL RECORDS. [facility]. provides no warranty or guarantee of the accuracy or completeness of information in this document.
[2024-10-23 14:52] LABS: Thyroid Stimulating Hormone 1.189 uIU/mL (0.358-3.740)
[2024-10-24 04:06] LABS: Free Thyroxine Index 1.8 (1.2-4.9); T3 Uptake 26 % (24-39); Thyroxine (T4) 6.9 ug/dL (4.5-12.0)
== END 2024-10-23 13:58 | disposition home or self-care (01) ==
LOC: LAB 14:00
PROVIDERS: PCP Nurse Practitioner; Visit Provider Otolaryngology
DX: E03.9 Hypothyroidism, unspecified (principal)
CPT/HCPCS: 36415; 84443

== ENCOUNTER 2025-01-06 10:13 | Outpatient (OUT) | payer MEDICARE, SELFPAY ==
--- NOTE | 2025-01-06 10:20 | MM_ITS ---
Patient Name: GURMEET ALMONTE MR#: [id number] : 1960 Exam Date: 01/06/2025 Ordering Doctor: [facility]OLOG[facility] REPORT PROCEDURE: MM TOMOSYNTHESIS SCREENING BI COMPARISON: MM TOMOSYNTHESIS SCREENING BI, 07/24/2023. MG MAMM SCREEN 3D ERA CAD, 07/18/2022. MG MAMM SCREEN 3D ERA CAD, 06/15/2021. MG MAMM ERA SCRN W CAD DIG, 09/14/2013. INDICATIONS: Screening Calculator Name NCI Breast Cancer Risk Assessment Tool 5 Year Breast Cancer Risk 1.60% Lifetime Breast Cancer Risk 6.20% Personal Breast Cancer No Personal Ovarian Cancer No Treatments radiation therapy Family Cancers Mother with lung cancer at age 48. LOCATION: [facility] BREAST COMPOSITION: There are scattered areas of fibroglandular density. FINDINGS: RIGHT BREAST: No significant suspicious finding. LEFT BREAST: No significant suspicious finding. Bilateral breast implantation. DIAGNOSTIC CATEGORY 1--NEGATIVE. RECOMMENDATIONS: ROUTINE MAMMOGRAM AND CLINICAL EVALUATION IN 12 MONTHS. PLEASE NOTE: A NORMAL MAMMOGRAM DOES NOT EXCLUDE THE POSSIBILITY OF BREAST CANCER. A CLINICALLY SUSPICIOUS PALPABLE LUMP SHOULD BE BIOPSIED. Dictated by: Georgi Garzon DO on 01/06/2025 at 13:02 Approved by: Georgi Garzon DO on 01/06/2025 at 13:04
== END 2025-01-06 10:14 | disposition home or self-care (01) ==
LOC: RAD 10:15
PROVIDERS: PCP Family Medicine; Visit Provider Nurse Practitioner
DX: Z12.31 Encounter for screening mammogram for malignant neoplasm of breast (principal); Z80.1 Family history of malignant neoplasm of trachea, bronchus and lung
CPT/HCPCS: 77063; 77067

== ENCOUNTER 2025-03-25 09:07 | Outpatient (OUT) | payer MEDICARE, SELFPAY ==
--- OUTSIDE RECORDS SUMMARY | 2025-03-25 09:09 | XMS_ITS | Encounter Summary ---
Author Organization [employer] Address [id number] [address] [place] [address] Care Team Providers Care Distribution Spec Name Role Phone Gume Blackwelljin Valenzuela APRN-[employer]ORAT[employer] PROFESSIONAL Primary Care Provider + Reason for Visit * Reason Comments Med Refill Encounter Details Date Type Department Care Team (Late Contact Info) Description 01/18/2023 Refill [facility] - Family Medicine [address] [place] [address] Shirlene Finn, BURN CREW MEMBER-GRADUATE NURSE [address] [place], [place] [id number] Social History Tobacco Use Types Packs/Day Years Used Date Smoking Tobacco: Former Smokeless Tobacco: Never Alcohol Use Standard Drinks/Week Comments Not Currently 0 (1 standard drink = 0.6 oz pur e alcohol) PHQ-2 Answer Date Recorded Total Score 0 12/24/2022 Childcare Answer Date Recorded Childcare Unknown 02/25/2019 Employment Answer Date Recorded Employment Unknown 02/25/2019 Comments Unknown Sex and Gender Information Value Date Recorded Sex Assigned at Not on file Legal Sex Female 11:35 AM EDT Gender Identity Not on file Sexual Orientation Not on file COVID-19 Exposure Response Date Recorded In the last month, have you been in contact with someone who was confirmed or suspected to have Coronavirus / COVID-19? No / Unsure 12/24/2022 7:55 AM EDT documented as of this encounter Plan of Treatment Upcoming Encounters Date Type Department Care Team (Late Contact Info) Description 07/01/2025 8:40 AM EDT Office Visit [facility] - Family Medicine [address] [place] [address] Kerry Blackwell APRN-CNP [address] [place] [address] documented as of this encounter Visit Diagnoses Not on filedocumented in this encounter Additional Health Concerns Assessment Noted Time PHQ-9 Depression Total Score: 0 12/25/19 23 8:09 AM EDT documented as of this encounter Care Teams Distribution Spec Relationship Specialty Start Date End Date Kerry Blackwell APRN-CNP [address] [place] [address] PCP - General Family Medicine 03/15/25 documented as of this encounter
--- OUTSIDE RECORDS SUMMARY | 2025-03-25 09:09 | XMS_ITS ---
Author Organization [facility] Address [address] [place], [place] [id number] Care Team Providers Care Linker Up Name Role Phone Belkis Anatoliy Mattsonard Primary Care Provider Shantelle Danielson Unavailable Unavailable Active Problems Problem Noted Date Diagnosed Date Cancer of larynx 04/26/2022 Current Treatment and Therapy Plans No current plan information found. Past Treatment and Therapy Plans NON-CHEMO 1 Plan Name Start Date Discontinue Date Treatment Medications Discontinue Reason Plan Provider Cycles AMB HYDRATION - ONCE 04/27/2022 03/23/2023 No medications scheduled. Other Kelvin De La Fuente MD 2 of 3 cycles started NON-CHEMO 3 Plan Name Start Date Discontinue Date Treatment Medications Discontinue Reason Plan Provider Cycles AMB FLUID AND/OR ELECTROLYTE REPLACEMENT 2 03/23/2023 No medications scheduled. Other Kelvin De La Fuente MD No cycles in plan
--- OUTSIDE RECORDS SUMMARY | 2025-03-25 09:09 | XMS_ITS | Encounter Summary ---
Author Organization [employer] Address [id number] [address] [place] [address] Care Team Providers Care Land Leveler Name Role Phone Kerry Blackwell APRN-YUKI Primary Care Provider + Reason for Visit * Reason Onset Date Comments Med Refill 09/12/2022 Encounter Details Date Type Department Care Team (Late st Contact Info) Description 09/12/2022 Refill [facility] - Family Medicine [address] [place] [address] Chana Cruz CMA Chronic bilateral low back pain without sciatica; Vitamin D deficiency Social History Tobacco Use Types Packs/Day Years Used Date Smoking Tobacco: Former Smokeless Tobacco: Never Alcohol Use Standard Drinks/Week Comments Not Currently 0 (1 standard drink = 0.6 oz pur e alcohol) Childcare Answer Date Recorded Childcare Unknown 02/25/2019 Employment Answer Date Recorded Employment Unknown 02/25/2019 Comments Unknown Sex and Gender Information Value Date Recorded Sex Assigned at Not on file Legal Sex Female 11:35 AM EDT Gender Identity Not on file Sexual Orientation Not on file documented as of this encounter Plan of Treatment Upcoming Encounters Date Type Department Care Team (Late st Contact Info) Description 07/01/2025 8:40 AM EDT Office Visit [facility] - Family Medicine [address] [place] [address] Kerry Blackwell APRN-CNP [address] [place] [address] documented as of this encounter Visit Diagnoses Diagnosis Chronic bilateral low back pain without sciatica Vitamin D deficiency documented in this encounter Care Teams Land Leveler Relationship Specialty Start Date End Date Kerry Blackwell APRN-SPEEDER OPERATOR [address] [place] [address] PCP - General Family Medicine 03/15/25 documented as of this encounter
--- OUTSIDE RECORDS SUMMARY | 2025-03-25 09:09 | XMS_ITS | Encounter Summary ---
Author Organization [employer] tem Address [facility] [place]-[id number] [address] [place] [address] Care Team Providers Care Textile Conversion Manager Name Role Phone Kerry Blackwell [facility] Primary Care Provider + Reason for Visit * Reason Comments Med Refill Encounter Details Date Type Department Care Team (Late st Contact Info) Description 06/29/2022 Refill [facility] - Family Medicine [address] [place] [address] Shirlene Finn, DIAMOND POWDER MIXER-FACTORY EXPERT [address] [place] [address] Social History Tobacco Use Types Packs/Day Years [...] have Coronavirus / COVID-19? No / Unsure 06/18/2022 9:23 AM EDT documented as of this encounter Plan of Treatment Upcoming Encounters Date Type Department Care Team (Late st Contact Info) Description 07/01/2025 8:40 AM EDT Office Visit [facility] - Family Medicine [address] [place] [address] Kerry Blackwell, CHRIS-SADDLE LINING STITCHER [address] [place] [address] documented as of this encounter Visit Diagnoses Not on filedocumented in this encounter Care Teams Textile Conversion Manager Relationship Specialty Start Date End Date Kerry Blackwell, DIAMOND POWDER MIXER-SADDLE LINING STITCHER [address] [place] [address] PCP - General Family Medicine 03/15/25 documented as of this encounter
--- OUTSIDE RECORDS SUMMARY | 2025-03-25 09:09 | XMS_ITS | Encounter Summary ---
Author Organization [email or web address] [facility] tem Address [facility] [place]-[id number] [address] [place] [address] Care Team Providers Care Spiral Runner Name Role Phone Kerry Blackwell APRN-YUKI Primary Care Provider + Encounter Details Date Type Department Care Team (Late st Contact Info) Description 07/19/2022 Orders Only [facility] [address] [place] [address] [place] [phone] Tammy Bah MA Encounter for screening mammogram for malignant neoplasm of breast Social History Tobacco Use Types Packs/Day Years [...] Medicine - Family Medicine [address] [place] [phone] Kerry Blackwell APRN-CNP [address] [place] [address] documented as of this encounter Procedures Procedure Name Priority Date/Time Associated Diagnosis Comments MAMM SCREENING BILATERAL W CAD Routine 07/19/2022 1:00 PM EDT Encounter for screening mammogram for malignant neoplasm of breast documented in this encounter Results * Mammography screening bilateral with CAD (07/19/2022 1:00 PM EDT) Anatomical Region Laterality Modality Breast Bilateral Mammography Shirlene Finn DUAL RATE SUPERVISOR-HYDRAULIC GOVERNOR ASSEMBLER IMG MAMMOGRAPHY ORDERABLES Final Result documented in this encounter Visit Diagnoses Diagnosis Encounter for screening mammogram for malignant neoplasm of breast documented in this encounter Care Teams Spiral Runner Relationship Specialty Start Date End Date Kerry Blackwell APRN-SALES OPERATIONS ASSISTANT [address] [place] [address] PCP - General Family Medicine 03/15/25 documented as of this encounter
--- OUTSIDE RECORDS SUMMARY | 2025-03-25 09:09 | XMS_ITS | Encounter Summary ---
Author Organization [employer] tem Address [facility] [id number] [address] [place] [address] Care Team Providers Care Heating Unit Installer Name Role Phone Kerry Blackwell APRN-NATURAL RESOURCE TECHNICIAN Primary Care Provider + Reason for Visit * Reason Comments Med Refill Encounter Details Date Type Department Care Team ([facility] Contact Info) Description 06/17/2022 Refill [facility] - Family Medicine [address] [place] [phone] Anatoliy Tamayo, DO [address] [place], [place] [address] Social History Tobacco Use Types Packs/Day Years Used Date Smoking Tobacco: Never Assessed Childcare Answer Date Recorded Childcare Unknown 02/25/2019 [...] Upcoming Encounters Date Type Department Care Team ([facility] Contact Info) Description 07/01/2025 8:40 AM EDT Office Visit [facility] - Family Medicine [address] [place] [phone] Kerry Blackwell, CONSTRUCTION MGR-NATURAL RESOURCE TECHNICIAN [address] [place] [address] documented as of this encounter Visit Diagnoses Not on filedocumented in this encounter Care Teams Heating Unit Installer Relationship Specialty Start Date End Date Kerry Blackwell APRN-NATURAL RESOURCE TECHNICIAN [address] [place] [address] PCP - General Family Medicine 03/15/25 documented as of this encounter
--- OUTSIDE RECORDS SUMMARY | 2025-03-25 09:09 | XMS_ITS | Encounter Summary ---
Author Organization [employer] tem Address [facility] [id number] [address] [place] [address] Care Team Providers Care Vortex Operator Name Role Phone Rosalva Kerry Valenzuela APRN-WORKING MANAGER Primary Care Provider + Reason for Visit * Reason Comments Med Refill Encounter Details Date Type Department Care Team (Late st Contact Info) Description 12/28/2022 Refill [facility] - Family Medicine [address] [place] [address] Shirlene Finn, MEDICAL CONSULTANT-BOTTOM TURNING LATHE TURNER [address] [place], [place] [id number] Social History Tobacco Use Types Packs/Day Years [...] - Family Medicine [address] [place] [address] Kerry Blackwell APRN-CNP [address] [place] [address] documented as of this encounter Visit Diagnoses Not on filedocumented in this encounter Additional Health Concerns Assessment Noted Time PHQ-9 Depression Total Score: 0 12/25/19 23 8:09 AM EDT documented as of this encounter Care Teams Vortex Operator Relationship Specialty Start Date End Date Kerry Blackwell APRN-CNP [address] [place] [address] PCP - General Family Medicine 03/15/25 documented as of this encounter
--- OUTSIDE RECORDS SUMMARY | 2025-03-25 09:09 | XMS_ITS | Encounter Summary ---
Author Organization [employer] tem Address [facility] [place]-[id number] [address] [place] [address] Care Team Providers Care Pipe Washer Name Role Phone Rosalva Kerry Valenzuela APRN-PATHOLOGY LAB TECHNICIAN Primary Care Provider + Reason for Visit * Reason Comments Med Refill Encounter Details Date Type Department Care Team (Late st Contact Info) Description 01/08/2023 Refill [facility] - Family Medicine [address] [place] [address] Shirlene Finn, HELICOPTER SPECIALIST-HOSE TUBING BACKER [address] [facility] [address] [place], [place] [id number] Social History Tobacco Use Types Packs/Day Years [...] - Family Medicine [address] [place] [address] Kerry Blackwell APRN-CNP [address] [place] [address] documented as of this encounter Visit Diagnoses Not on filedocumented in this encounter Additional Health Concerns Assessment Noted Time PHQ-9 Depression Total Score: 0 12/25/19 23 8:09 AM EDT documented as of this encounter Care Teams Pipe Washer Relationship Specialty Start Date End Date Kerry Blackwell APRN-CNP [address] [place] [address] PCP - General Family Medicine 03/15/25 documented as of this encounter
--- OUTSIDE RECORDS SUMMARY | 2025-03-25 09:09 | XMS_ITS | Clinical Summary ---
Author Organization [facility] Address [address] [place], [place] [id number] Care Team Providers Care Therapist Speech Name Role Phone Anatoliy Tamayo Primary Care Provider Shantelle Danielson Unavailable Unavailable Allergies Active Allergy Reactions Criticality Noted Date Comments Moxifloxacin Hives,Angioedema 02/02/2022 Medications omeprazole (PRILOSEC) 40 mg capsule take 1 capsule by mouth IN THE MORNING 30 MINUTES TO 1 HOUR PRIOR TO EATING breakfast 2 Active cyclobenzaprin e (FLEXERIL) 10 mg tablet Take 10 mg by mouth daily at bedtime. 2 Active Cholecalcifero l, Vitamin D3, 50 mcg (2,000 unit) cap Vitamin D3 50 mcg (2,000 unit) capsule take 1 capsule by mouth once daily Active estradiol (CLIMARA) 0.05 mg/24 hr estradiol 0.05 mg/24 hr weekly transdermal patch apply 1 patch every week as directed Active FLUoxetine (PROZAC) 20 mg capsule fluoxetine 20 mg capsule take 1 capsule by mouth once daily Active fluticasone (FLONASE) 50 mcg/actuation nasal spray fluticasone propionate 50 mcg/actuation nasal spray,suspension USE 1 SPRAY NASALLY DAILY Active meclizine (ANTIVERT) 25 mg tab meclizine 25 mg tablet take 1 tablet by mouth once daily if needed Active spironolactone (ALDACTONE) 25 mg tablet spironolactone 25 mg tablet TAKE 1 TABLET BY MOUTH ONE DAILY Active Butalbital-Cod -Acetaminop-Ca f 36-258-99-30 mg per capsule butalbital 50 mg-acetaminophen 325 mg-caffeine 40 mg-codeine 30 mg cap take 1 capsule by mouth twice a day Active Active Problems Problem Noted Date Diagnosed Date Cancer of larynx 04/26/2022 Immunizations Immunization Administration Dates Next Due diphtheria tetanus pertussis (DTaP) vaccine, pediatric (INFANRIX) 09/15/2012 influenza (IIV3) vaccine, tr ivalent, PF (AFLURIA, FLUARIX, FLULAVAL, FLUVIRIN, FLUZONE) 08/13/2016,08/01/2015 influenza (IIV4) vaccine, ag e 6 mo - 64 yr, quadrivalent, PF (AFLURIA, FLUARIX, FLULAVAL, FLUZONE) 07/19/2021,05/18/2020,05/12/2019 influenza (IIV4) vaccine, qu adrivalent (AFLURIA, FLULAVAL, FLUZONE) 06/16/2018 influenza (ccIIV4) vaccine, age 6+ mo, quadrivalent, PF (FLUCELVAX) 06/17/2017 pneumococcal conjugate (PCV1 3) vaccine, 13 valent (PREVNAR 13) 08/01/2015 pneumococcal polysaccharide (PPV23) vaccine, 23 valent (PNEUMOVAX 23) 07/13/2011 tetanus diphtheria pertussis (Tdap) vaccine, age 7+ yr (ADACEL, BOOSTRIX) 06/17/2017 varicella zoster immune glob ulin (VZIG) (VARIZIG) 05/12/2019 zoster (RZV) vaccine, recomb inant (SHINGRIX) 05/12/2019,03/10/2019 Family History Medical History Relation Comments Lung Cancer Father Lung Cancer Mother Relation Status Comments Father Alive Mother Social History Tobacco Use Types Packs/Day Years Used Date Smoking Tobacco: Former Cigarettes 1.5 25 1 987 - 2011 Smokeless Tobacco: Never Tobacco Cessation:Counseling Given: Not Answered Comments:currently uses a vape Alcohol Use Standard Drinks/Week Comments Not Currently 0 (1 standard drink = 0.6 oz pur e alcohol) PHQ-2 Answer Date Recorded PHQ-2 score 0 05/04/2024 Area Deprivation Index Answer Date Maynor rded National Score (1-100), lower number is lower ri sk 74 05/06/2023 State Score (1-10), lower number is lower risk 6 05/06/2023 Data from: https://www.neighborhoodatlas.medicine.[facility]/. Last address used for calculation [address] 05/06/2023 Comments No Sex and Gender Information Value Date Recorded Sex Assigned at Not on file Legal Sex Female 9:30 AM EDT Gender Identity Not on file Sexual Orientation Not on file Last Filed Vital Signs Vital Sign Reading Time Taken Comments Blood Pressure 128/86 05/04/2024 9:47 AM EDT Pulse 111 05/04/2024 9:47 AM EDT Temperature 35.9 C (96.7 F) 05/04/2024 9:47 AM EDT Respiratory Rate 16 05/04/2024 9:47 AM EDT Oxygen Saturation 98% 05/04/2024 9:47 AM EDT Inhaled Oxygen Concentration - - Weight 66.2 kg (145 lb 15.1 oz) 05/04/2024 9:47 AM EDT Height 167 cm (5' 5.75 ) 02/02/2022 1:18 PM EDT Body Mass Index 23.74 02/02/2022 1:18 PM EDT Plan of Treatment Upcoming Encounters Date Type Department Care Team (Late st Contact Info) Description 05/03/2025 10:00 AM EDT Office Visit Radiation Oncology [address] [place] [address] Kelvin De La Fuente MD [address] [place] [address] Followup Health Maintenance Due Date Last Done Comments Anxiety Screening 12/04/1977 Depression Screening 12/04/1977 HIV Screening 12/04/1977 Hepatitis C Screening 12/04/1977 CT Colonography 12/04/2004 Colonoscopy 12/04/2004 Fecal Occult Blood 12/04/2004 Lipid Screening 12/04/2004 Sigmoidoscopy 12/04/2004 Pneumococcal Vaccine: 50+ (3 of 3 - PCV20 or PCV21) 08/01/2020 08/01/2015, 07/13/2011 Cologuard (FIT-DNA) 10/24/2023 10/24/2020 Colorectal Cancer Screening 10/24/2023 Covid-19 Vaccine ( - 2023-2 5 season) 2024 09/14/2021, 12/14/2020, 11/23/2020 Mammogram Screening 07/24/2024 07/24/2023, 07/24/2023, 07/24/2023, Additional history exists Advance Directive Discussion 12/04/2024 Bone Density Screening 12/04/2024 Influenza Vaccine (#1) 2025 3, 09/02/2022, 07/19/2021, Additional history exists Diabetes Screening 10/31/2026 10/31/2023, 09/24/2022 DTaP,Tdap,Td Vaccine (3 - Td or Tdap) 06/17/2027 06/17/2017, 09/15/2012 RSV Vaccine (1 - 1-dose 75+ series) 12/04/2034 Shingrix Vaccine Completed 05/12/2019, 03/10/2019 Insurance [facility] [employer] PPO Care Teams Therapist Speech Relationship Specialty Start Date End Date Anatoliy Tamayo DO [address] [place] [address] PCP - General Family Medicine 01/31/22 Shantelle Danielson LSW Pipe Insulator Helper 04/05/22
--- OUTSIDE RECORDS SUMMARY | 2025-03-25 09:09 | XMS_ITS | Encounter Summary ---
Author Organization [employer] tem Address [facility] [place]-[id number] [address] [place] [address] Care Team Providers Care Health Plan Advisor Name Role Phone Kerry Blackwell Bianca PEREZ-WIND TURBINE INSTALLER Primary Care Provider + Encounter Details Date Type Department Care Team (Late st Contact Info) Description 01/21/2025 Orders Only [facility] Internal Medicine - Family Medicine [address] [place] [phone] Chana Cruz CMA Encounter for screening mammogram for malignant neoplasm of breast Social History Tobacco Use Types Packs/Day Years Used Date Smoking Tobacco: Former Smokeless Tobacco: Never Alcohol Use Standard Drinks/Week Comments Not Currently 0 (1 standard drink = 0.6 oz pur e alcohol) PHQ-2 Answer Date Recorded Total Score 0 12/24/2024 Childcare Answer Date Recorded Childcare Unknown 02/25/2019 Employment Answer Date Recorded Employment Unknown 02/25/2019 Hunger Screening Answer Date Recorded Within the past 12 months we worried whether our food would run out before we got money to buy more. Never True 12/24/2024 Within the past 12 months th e food we bought just didn't last and we didn't have money to get more. Never True 12/24/2024 Comments Unknown Sex and Gender Information Value [...] Medicine - Family Medicine [address] [place] [address] Kerry Blackwell APRN-YUKI [address] [place] [address] documented as of this encounter Procedures Procedure Name Priority Date/Time Associated Diagnosis Comments MAMM SCREENING BILATERAL W CAD Routine 01/21/2025 7:13 AM EDT Encounter for screening mammogram for malignant neoplasm of breast documented in this encounter Results * Mammography screening bilateral with CAD (01/21/2025 7:13 AM EDT) Anatomical Region Laterality Modality Breast Bilateral Mammography us Eugenia Goddard APRN-WIND TURBINE INSTALLER IMG MAMMOGRAPHY ORDE MARIELY Final Result documented in this encounter Visit Diagnoses Diagnosis Encounter for screening mammogram for malignant neoplasm of breast documented in this encounter Additional Health Concerns Assessment Noted Time PHQ-9 Depression Total Score: 0 12/25/19 25 8:24 AM EDT documented as of this encounter Care Teams Health Plan Advisor Relationship Specialty Start Date End Date Kerry Blackwell, CHRIS-WIND TURBINE INSTALLER [address] [place] [address] PCP - General Family Medicine 03/15/25 documented as of this encounter
--- OUTSIDE RECORDS SUMMARY | 2025-03-25 09:09 | XMS_ITS | Encounter Summary ---
Author Organization [employer] tem Address [facility] [id number] [address] [place] [address] Care Team Providers Care Muskrat Trapper Name Role Phone Kerry Blackwell APRN-CANDY DIPPER HAND Primary Care Provider + Reason for Visit * Reason Comments Med Refill Encounter Details Date Type Department Care Team (Late Contact Info) Description 09/20/2022 Refill [facility] Internal [facility] - Family Medicine [address] [place] [phone] Shirlene Finn, CHRIS-CNC MILL AND LATHE OPERATOR [address] [place], [place] [phone] Social History Tobacco Use Types Packs/Day Years Used Date Smoking Tobacco: Former Smokeless Tobacco: Never Alcohol Use Standard Drinks/Week Comments Not Currently 0 (1 standard drink = 0.6 oz pur e alcohol) PHQ-2 Answer Date Recorded Total Score 0 09/24/2022 Childcare Answer Date Recorded Childcare Unknown 02/25/2019 [...] Medicine - Family Medicine [address] [place] [phone] Kerry Blackwell APRN-CANDY DIPPER HAND [address] [place] [address] documented as of this encounter Visit Diagnoses Not on filedocumented in this encounter Care Teams Muskrat Trapper Relationship Specialty Start Date End Date Kerry Blackwell, BAND BOOKER-CANDY DIPPER HAND [address] [place] [address] PCP - General Family Medicine 03/15/25 documented as of this encounter
--- OUTSIDE RECORDS SUMMARY | 2025-03-25 09:09 | XMS_ITS | Encounter Summary ---
Author Organization [employer] tem Address [facility] [place]-[id number] [address] [place] [address] Care Team Providers Care Hostel Parent Name Role Phone Kerry Blackwell APRN-DIGITAL STRATEGY DIRECTOR Primary Care Provider + Reason for Visit * Reason Comments Med Refill Encounter Details Date Type Department Care Team (Late Contact Info) Description 12/09/2022 Refill [facility] - Family Medicine [address] [place] [phone] Shirlene Finn, CHRIS-FOLDING MACHINE OPERATOR [address] [place], [place] [phone] Chronic neck and back pain Social History Tobacco Use Types Packs/Day Years [...] Medicine - Family Medicine [address] [place] [phone] Kerry Blackwell, EMISSIONS ENGINEER-DIGITAL STRATEGY DIRECTOR [address] [place] [address] documented as of this encounter Visit Diagnoses Diagnosis Chronic neck and back pain documented in this encounter Additional Health Concerns Assessment Noted Time PHQ-9 Depression Total Score: 0 09/24/19 23 8:02 AM EST documented as of this encounter Care Teams Hostel Parent Relationship Specialty Start Date End Date Kerry Blackwell, EMISSIONS ENGINEER-DIGITAL STRATEGY DIRECTOR [address] [place] [address] PCP - General Family Medicine 03/15/25 documented as of this encounter
--- OUTSIDE RECORDS SUMMARY | 2025-03-25 09:09 | XMS_ITS | Encounter Summary ---
Author Organization [employer] [facility] tem Address [facility]-[id number] [address] [place] [address] Care Team Providers Care Fruit Ii Farmworker Name Role Phone Kerry Blackwell Bianca PEREZ-WHEEL CUTTER Primary Care Provider + Encounter Details Date Type Department Care Team (Late Contact Info) Description 01/18/2025 Orders Only [facility] Internal Medicine - Family Medicine [address] [place] [address] Ref Prov, [place] [address] Social History Tobacco Use Types Packs/Day Years [...] Medicine - Family Medicine [address] [place] [address] Kerry Blackwell APRN-WHEEL CUTTER [address] [place] [address] documented as of this encounter Procedures Procedure Name Priority Date/Time Associated Diagnosis Comments MAMMOGRAPHY BILATERAL Routine 01/06/2025 10:46 AM EDT documented in this encounter Results * MAMMOGRAPHY BILATERAL (01/06/2025 10:46 AM EDT) us Not In System Ref Prov [facility] Final Result MANUALLY TRANSCRIBED RESULTS documented in this encounter Visit Diagnoses Not on filedocumented in this encounter Additional Health Concerns Assessment Noted Time PHQ-9 Depression Total Score: 0 12/25/19 25 8:24 AM EDT documented as of this encounter Care Teams Fruit Ii Farmworker Relationship Specialty Start Date End Date Kerry Blackwell, PASSENGER RATE CLERK-WHEEL CUTTER [address] [place] [address] PCP - General Family Medicine 03/15/25 documented as of this encounter
--- OUTSIDE RECORDS SUMMARY | 2025-03-25 09:09 | XMS_ITS | Encounter Summary ---
Author Organization [employer] [facility] tem Address [facility] [place]-[id number] [address] [place] [address] Care Team Providers Care Wreath Machine Operator Name Role Phone Kerry Blackwell APRN-YUKI Primary Care Provider + Encounter Details Date Type Department Care Team (Late Contact Info) Description 07/27/2022 Orders Only [facility] Internal [facility] - Family Medicine [address] [place] [address] Bev Morley MA Disorder of thyroid Social History Tobacco Use Types Packs/Day Years [...] Medicine - Family Medicine [address] [place] [address] Kerry Blackwell APRN-CNP [address] [place] [address] documented as of this encounter Procedures Procedure Name Priority Date/Time Associated Diagnosis Comments THYROID PROFILE INCLUDES TSH FT4 Routine 07/18/20 22 Disorder of thyroid documented in this encounter Results * Thyroid profile includes TSH FT4 (07/18/2022) 07/18/2022 Shirlene Finn WELDING PANTOGRAPH OPERATOR-ADMITTING MANAGER LAB BLOOD ORDERABLES Final Result [employer] documented in this encounter Visit Diagnoses Diagnosis Disorder of thyroid Unspecified disorder of thyroid documented in this encounter Care Teams Wreath Machine Operator Relationship Specialty Start Date End Date Kerry Blackwell, CHRSI-MILLING PLANER OPERATOR [address] [place] [address] PCP - General Family Medicine 03/15/25 documented as of this encounter
--- OUTSIDE RECORDS SUMMARY | 2025-03-25 09:09 | XMS_ITS | Encounter Summary ---
Author Organization [employer] [facility] tem Address [facility] [place][id number] [address] [place] [address] Care Team Providers Care Stonecutter Assistant Name Role Phone Rosalva, Kerry Valenzuela APRN-UNIVERSITY LIBRARIAN Primary Care Provider + Encounter Details Date Type Department Care Team (Late st Contact Info) Description 01/05/2025 Telephone [facility] - Family Medicine [address] [place] [address] Gail Wise CMA Social History Tobacco Use Types Packs/Day Years [...] on file documented as of this encounter Miscellaneous Notes * Telephone Encounter - Gail Wise CMA - 01/05/2025 8:43 AM EDT Pt called requesting her echo results documented in this encounter Plan of Treatment Upcoming Encounters Date Type Department Care Team (Late st Contact Info) Description 07/01/2025 8:40 AM EDT Office Visit [facility] - Family Medicine [address] [place] [address] Kerry Blackwell APRN-UNIVERSITY LIBRARIAN [address] [place] [address] documented as of this encounter Visit Diagnoses Not on filedocumented in this encounter Additional Health Concerns Assessment Noted Time PHQ-9 Depression Total Score: 0 12/25/19 8:24 AM EDT documented as of this encounter Care Teams Stonecutter Assistant Relationship Specialty Start Date End Date Kerry Blackwell, YARD DRIVER-UNIVERSITY LIBRARIAN [address] [place] [address] PCP - General Family Medicine 03/15/25 documented as of this encounter
--- OUTSIDE RECORDS SUMMARY | 2025-03-25 09:09 | XMS_ITS | Encounter Summary ---
Author Organization [employer] tem Address [facility]-[id number] [address] [place] [address] Care Team Providers Care Pan Devulcanizer Helper Name Role Phone Kerry Blackwell APRN-YUKI Primary Care Provider + Reason for Visit * Reason Comments Med Refill Encounter Details Date Type Department Care Team (Late Contact Info) Description 12/09/2022 Refill [facility] Internal Medicine - Family Medicine [address] [place] [phone] Rohan Salguero, DO [address] [place] [address] Vitamin D deficiency Social History Tobacco Use [...] Medicine - Family Medicine [address] [place] [address] Kerry Blackwell APRN-PEDIATRIC NEUROLOGIST [address] [place] [place] [address] documented as of this encounter Visit Diagnoses Diagnosis Vitamin D deficiency documented in this encounter Additional Health Concerns Assessment Noted Time PHQ-9 Depression Total Score: 0 09/24/19 23 8:02 AM EST documented as of this encounter Care Teams Pan Devulcanizer Helper Relationship Specialty Start Date End Date Kerry Blackwell, RN FLIGHT-YUKI [address] [place] [address] PCP - General Family Medicine 03/15/25 documented as of this encounter
--- OUTSIDE RECORDS SUMMARY | 2025-03-25 09:09 | XMS_ITS | Encounter Summary ---
Author Organization [employer] tem Address [facility] [id number] [address] [place] [address] Care Team Providers Care Academic Services Coordinator Name Role Phone Kerry Blackwell [facility] Primary Care Provider + Reason for Visit * Reason Comments Med Refill Encounter Details Date Type Department Care Team (Late st Contact Info) Description 07/10/2022 Refill [facility] Internal Medicine - Family Medicine [address] [place] [address] Shirlene Finn, PSYCHOLOGIST SOCIAL-SOCIAL MEDIA STRATEGIST [address] [facility] [place] [address] Social History Tobacco Use Types Packs/Day Years [...] Medicine - Family Medicine [address] [place] [address] Kerry Blackwell, CHRIS-TRANSIT POLICE OFFICER [address] [place] [address] documented as of this encounter Visit Diagnoses Not on filedocumented in this encounter Care Teams Academic Services Coordinator Relationship Specialty Start Date End Date Kerry Blackwell, PSYCHOLOGIST SOCIAL-TRANSIT POLICE OFFICER [address] [place] [address] PCP - General Family Medicine 03/15/25 documented as of this encounter
--- OUTSIDE RECORDS SUMMARY | 2025-03-25 09:09 | XMS_ITS | Encounter Summary ---
Author Organization [facility] tem Address [facility]-[id number] [address] [place] [address] Care Team Providers Care Game Designer Name Role Phone Kerry Blackwell [facility] Primary Care Provider + Reason for Visit * Reason Onset Date Comments Med Refill 09/15/2024 Encounter Details Date Type Department Care Team (Late st Contact Info) Description 09/15/2024 Refill [facility] Internal Medicine - Family Medicine [address] [place] [phone] Eugenia Goddard CORRECTION OFFICER [place] [facility] [address] LEFT PM 03/15/25 [place] [phone] Chronic neck and back pain Social History Tobacco Use Types Packs/Day Years Used Date Smoking Tobacco: Former Smokeless Tobacco: Never Alcohol Use Standard Drinks/Week Comments Not Currently 0 (1 standard drink = 0.6 oz pur e alcohol) PHQ-2 Answer Date Recorded Total Score 0 08/04/2024 Childcare Answer Date Recorded Childcare Unknown 02/25/2019 Employment Answer Date Recorded Employment Unknown 02/25/2019 Hunger Screening Answer Date Recorded Within the past 12 months we worried whether our food would run out before we got money to buy more. Never True 08/04/2024 Within the past 12 months th e food we bought just didn't last and we didn't have money to get more. Never True 08/04/2024 Comments Unknown Sex and Gender Information Value [...] Medicine - Family Medicine [address] [place] [address] Kerry Blackwell APRN-INTERNET MARKETING CONSULTANT [address] [place] [place] [address] documented as of this encounter Visit Diagnoses Diagnosis Chronic neck and back pain documented in this encounter Additional Health Concerns Assessment Noted Time PHQ-9 Depression Total Score: 0 08/04/20 24 8:27 AM EST documented as of this encounter Care Teams Game Designer Relationship Specialty Start Date End Date Kerry Blackwell, CORRECTION OFFICER [place] [facility]-INTERNET MARKETING CONSULTANT [address] [place] [address] PCP - General Family Medicine 03/15/25 documented as of this encounter
--- OUTSIDE RECORDS SUMMARY | 2025-03-25 09:09 | XMS_ITS | Encounter Summary ---
Author Organization [employer] [facility] tem Address [id number] [address] [place] [address] Care Team Providers Care Digital Coordinator Name Role Phone Kerry Blackwell Primary Care Provider + Reason for Referral * Medication Prior Authorization - Pending Review Specialty Diagnoses / Procedures Referred By Contac t Referred To Contact Diagnoses Vertigo Kerry Blackwell APRN-CNP [address] [place] [address] Phone: tel: fax: Referral ID Status Reason Start Date Expiration Date V isits Requested Visits Authorized [id number] Pending Review 1 1 Encounter Details Date Type Department Care Team (Late st Contact Info) Description 03/17/2025 Refill [facility] Internal Medicine - Family Medicine [address] [place] [address] Alessandra Santa CMA Vertigo; Generalized anxiety disorder Social History Tobacco Use Types Packs/Day Years [...] got money to buy more. Never True 03/04/2025 Within the past 12 months th e food we bought just didn't last and we didn't have money to get more. Never True 03/04/2025 Comments Unknown Sex and Gender Information Value [...] Medicine - Family Medicine [address] [place] [address] Kerry Blackwell, ASSISTED LIVING HOME DIRECTOR-ART EDUCATION PROFESSOR [address] [place] [address] documented as of this encounter Visit Diagnoses Diagnosis Vertigo Dizziness and giddiness Generalized anxiety disorder documented in this encounter Additional Health Concerns Assessment Noted Time PHQ-9 Depression Total Score: 0 12/25/19 25 8:24 AM EDT documented as of this encounter Care Teams Digital Coordinator Relationship Specialty Start Date End Date Kerry Blackwell, ASSISTED LIVING HOME DIRECTOR-ART EDUCATION PROFESSOR [address] [place] [address] PCP - General Family Medicine 03/15/25 documented as of this encounter
--- OUTSIDE RECORDS SUMMARY | 2025-03-25 09:09 | XMS_ITS | Encounter Summary ---
Author Organization [employer] tem Address [id number] [address] [place] [address] Care Team Providers Care Pastrycook Name Role Phone Rosalva Kerry Valenzuela APRN-YACHT MASTER Primary Care Provider + Reason for Visit * Reason Comments Med Refill Encounter Details Date Type Department Care Team (Late st Contact Info) Description 12/22/2022 Refill [facility] Internal Medicine - Family Medicine [address] [place] [address] Shirlene Finn, HEALTH PROFESSOR-MANAGER EMS [address] [place], [place] [id number] Social History Tobacco Use Types Packs/Day Years [...] Medicine - Family Medicine [address] [place] [address] Kerry Blackwell APRN-CNP [address] [place] [address] documented as of this encounter Visit Diagnoses Not on filedocumented in this encounter Additional Health Concerns Assessment Noted Time PHQ-9 Depression Total Score: 0 09/24/19 23 8:02 AM EST documented as of this encounter Care Teams Pastrycook Relationship Specialty Start Date End Date Kerry Blackwell APRN-YACHT MASTER [address] [place] [address] PCP - General Family Medicine 03/15/25 documented as of this encounter
--- OUTSIDE RECORDS SUMMARY | 2025-03-25 09:09 | XMS_ITS | Clinical Summary ---
Author Organization [facility] Address [address] [place] [place] [address] Care Team Providers Care Mixing Machine Tender Name Role Phone Anatoliy Tamayo MD Unavailable [phone] Anatoliy Tamayo MD Primary Care Provider [phone] Allergies Active Allergy Reactions Criticality Noted Date Comments Moxifloxacin 02/05/2023 Other Reaction(s): throat swelling Medications fluticasone (Flonase) 50 MCG/ACT nasal spray Administer 1 spray into each nostril Daily Active cholecalciferol (Vitamin D-3) 50 MCG (1999 UT) capsule Take 2,000 Units by mouth 1 (one) time each day at the same time Active spironolactone (Aldactone) 25 MG tablet Take 25 mg by mouth 1 (one) time prn Active Meclizine HCl 25 MG chewable tablet 1 (one) time each day at the same time Active FLUoxetine (PROzac) 20 MG capsule Take 20 mg by mouth 1 (one) time each day at the same time Active estradiol (Vivelle-DOT) 0.05 MG/24HR Place 1 patch on the skin 1 (one) time per week Active cyclobenzaprine (Flexeril) 10 MG tablet Take 10 mg by mouth at bedtime Active butalbital-acet aminophen-caffe ine-codeine (Fioricet W/Codeine) 82-774-71-30 MG capsule Take 1 capsule by mouth every 4 (four) hours if needed Active Active Problems Problem Noted Date Diagnosed Date 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 Radiation completed Apr 2022. Monthly checks started 07/23/22. 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 022 Neuropathy 07/29/2017 Resolved Problems Problem Noted Date Diagnosed Date Resolved Date Neck pain, chronic 12/24/2022 3 Actinic keratosis 06/18/2022 03/26/2023 Chronic bilateral low back p ain without sciatica 06/18/2022 03/26/2023 Fatigue 06/18/2022 03/26/2023 Fracture of lumbar spine 06/18/202207/2023 Fracture of pelvis 06/18/2022 3 Rosacea 06/18/2022 03/26/2023 Encounters Date Type Department Care Team Description 01/19/2025 8:30 AM EDT Office Visit [facility] [address] [place] [address] Damaris Blas MD Cancer of vocal cord (HCC) (Primary Dx) 01/19/2025 Bamboo flowsheet [facility] [address] [place] [address] [place] [address] Damaris Blas MD 01/19/2025 Travel from Last 3 Months Immunizations Immunization Administration Dates Next Due Zoster, Recombinant 05/12/2019,03/10/2019 Family History Medical History Relation Name Comments Cancer Mother Hypertension Sister Relation Name Status Comments Mother Sister Social History Tobacco Use Types Packs/Day Years Used Date Smoking Tobacco: Former Cigarettes Q uit: 04/16/2015 Smokeless Tobacco: Never Alcohol Use Standard Drinks/Week Comments Not Currently 0 (1 standard drink = 0.6 oz pure alcohol) caffeine intake: 2-3 cups per day Comments Unknown Sex and Gender Information Value Date Recorded Sex Assigned at Not on file Legal Sex Female 6:40 PM EDT Gender Identity Not on file Sexual Orientation Not on file Last Filed Vital Signs Vital Sign Reading Time Taken Comments Blood Pressure 110/81 01/19/2025 8:35 AM EDT Pulse 88 01/19/2025 8:35 AM EDT Temperature - - Respiratory Rate - - Oxygen Saturation - - Inhaled Oxygen Concentration - - Weight 64.9 kg (143 lb) 01/19/2025 8:35 AM EDT Height 170.2 cm (5' 7 ) 01/19/2025 8:35 AM EDT Body Mass Index 22.4 01/19/2025 8:35 AM EDT Plan of Treatment Upcoming Encounters Date Type Department Care Team (Late st Contact Info) Description 04/20/2025 9:00 AM EDT Office Visit [facility] [address] [facility] [address] [place] [address] Damaris Blas MD [address] [facility] [facility] [address] [place] [address] Health Maintenance Due Date Last Done Comments CT Colonography 1959 Colonoscopy 1959 FIT 1959 FOBT 1959 Sigmoidoscopy 1959 Pap Smear 12/04/1980 Cervical Cancer Screening 12/04/1989 HPV/Cotest 12/04/1989 Pneumococcal Vaccine: 65+ Ye ars (3 of 3 - PCV20 or PCV21) 08/01/2020 08/01/2015, 07/13/2011 Mammogram 07/24/2024 07/24/2023, 07/19/2022 Influenza Vaccine (#1) 2025 , 09/02/2022, 07/19/2021, Additional history exists Colorectal Cancer Screening 01/06/2028 FIT-DNA 01/06/2028 01/05/2025, 10/24/2020 [place] [address] [employer] Care Teams Mixing Machine Tender Relationship Specialty Start Date End Date Anatoliy Tamayo MD [address] [place] [address] PCP - General Family Medicine 01/19/25 Anatoliy Tamayo MD [address] [place] [address] Referring Physician Family Medicine 01/13/25
--- OUTSIDE RECORDS SUMMARY | 2025-03-25 09:09 | XMS_ITS | Encounter Summary ---
Author Organization [employer] tem Address [id number] [address] [place] [address] Care Team Providers Care Sap Plant Maintenance Consultant Name Role Phone Kerry Blackwell ELECTRONIC ASSEMBLER-BOTTOM SAW OPERATOR Primary Care Provider + Reason for Visit * Reason Comments Med Refill Encounter Details Date Type Department Care Team (Late st Contact Info) Description 06/10/2022 Refill [facility] Internal Medicine - Family Medicine [address] [place] [phone] Shirlene Finn, ELECTRONIC ASSEMBLER-ENGINEERING DEPARTMENT CHAIR [address] [place], [place] [id number] Chronic neck and back pain (Primary Dx) Social History Tobacco Use Types Packs/Day Years [...] Medicine - Family Medicine [address] [place] [phone] Kerry Blackwell, ELECTRONIC ASSEMBLER-BOTTOM SAW OPERATOR [address] [place] [address] documented as of this encounter Visit Diagnoses Diagnosis Chronic neck and back pain- Primary documented in this encounter Care Teams Sap Plant Maintenance Consultant Relationship Specialty Start Date End Date Kerry Blackwell, ELECTRONIC ASSEMBLER-BOTTOM SAW OPERATOR [address] [place] [address] PCP - General Family Medicine 03/15/25 documented as of this encounter
--- OUTSIDE RECORDS SUMMARY | 2025-03-25 09:09 | XMS_ITS | Encounter Summary ---
Author Organization [employer] tem Address [facility] [id number] [address] [place] [address] Care Team Providers Care Hog Pusher Name Role Phone Rosalva Kerry Valenzuela APRN-HEALTH ADVOCATE Primary Care Provider + Reason for Visit * Reason Comments Med Refill Encounter Details Date Type Department Care Team (Late Contact Info) Description 10/09/2022 Refill [facility] Internal Medicine - Family Medicine [address] [place] [address] Shirlene Finn, GAS WELDER APPRENTICE-THEORETICAL PHYSICIST [address] [place], [place] [phone] Chronic neck and back pain Social History [...] have Coronavirus / COVID-19? No / Unsure 09/24/2022 7:53 AM EST documented as of this encounter Plan of Treatment Upcoming Encounters Date Type Department Care Team (Late Contact Info) Description 07/01/2025 8:40 AM EDT Office Visit [facility] - Family Medicine [address] [place] [address] Kerry Blackwell APRN-CNP [address] [place] [address] documented as of this encounter Visit Diagnoses Diagnosis Chronic neck and back pain documented in this encounter Additional Health Concerns Assessment Noted Time PHQ-9 Depression Total Score: 0 09/24/19 23 8:02 AM EST documented as of this encounter Care Teams Hog Pusher Relationship Specialty Start Date End Date Kerry Blackwell APRN-CNP [address] [place] [address] PCP - General Family Medicine 03/15/25 documented as of this encounter
--- OUTSIDE RECORDS SUMMARY | 2025-03-25 09:09 | XMS_ITS | Encounter Summary ---
Author Organization [employer] tem Address [id number] [address] [place] [address] Care Team Providers Care Metalworker Name Role Phone Kerry Blackwell APRN-CAP LINING MACHINE OPERATOR Primary Care Provider + Reason for Visit * Reason Comments Med Refill Encounter Details Date Type Department Care Team (Late Contact Info) Description 11/11/2022 Refill [facility] Internal Medicine - Family Medicine [address] [place] [address] Rohan Salguero, DO [address] [place] [facility] [place] [address] Chronic bilateral low back pain without sciatica Social History Tobacco Use Types Packs/Day Years [...] Medicine - Family Medicine [address] [place] [address] Kerry Blackwell APRN-CNP [address] [place] [address] documented as of this encounter Visit Diagnoses Diagnosis Chronic bilateral low back pain without sciatica documented in this encounter Additional Health Concerns Assessment Noted Time PHQ-9 Depression Total Score: 0 09/24/19 23 8:02 AM EST documented as of this encounter Care Teams Metalworker Relationship Specialty Start Date End Date Kerry Blackwell APRN-CNP [address] [place] [address] PCP - General Family Medicine 03/15/25 documented as of this encounter
--- OUTSIDE RECORDS SUMMARY | 2025-03-25 09:09 | XMS_ITS | Encounter Summary ---
Author Organization [employer] [facility] tem Address [facility][id number] [address] [place] [address] Care Team Providers Care Bus Aide Name Role Phone RosalvaKerry APRN-BIG DATA SOFTWARE ENGINEER Primary Care Provider + Encounter Details Date Type Department Care Team (Late st Contact Info) Description 10/31/2023 Orders Only [facility] Internal Medicine - Family Medicine [address] [place] [address] Shirlene Finn, CHRIS-DEHYDRATOR [address] [place], [place] [phone] Chronic bilateral low back pain without sciatica (Primary Dx) Social History Tobacco Use Types Packs/Day Years Used Date Smoking Tobacco: Former Smokeless Tobacco: Never Alcohol Use Standard Drinks/Week Comments Not Currently 0 (1 standard drink = 0.6 oz pur e alcohol) PHQ-2 Answer Date Recorded Total Score 0 10/31/2023 Childcare Answer Date Recorded Childcare Unknown 02/25/2019 Employment Answer Date Recorded Employment Unknown 02/25/2019 Hunger Screening Answer Date Recorded Within the past 12 months we worried whether our food would run out before we got money to buy more. Never True 10/31/2023 Within the past 12 months th e food we bought just didn't last and we didn't have money to get more. Never True 10/31/2023 Comments Unknown Sex and Gender Information Value [...] Medicine - Family Medicine [address] [place] [address] Kerry Blackwell, CHRIS-BIG DATA SOFTWARE ENGINEER [address] [place] [address] documented as of this encounter Visit Diagnoses Diagnosis Chronic bilateral low back pain without sciatica- Primary documented in this encounter Additional Health Concerns Assessment Noted Time PHQ-9 Depression Total Score: 0 10/31/19 24 8:54 AM EST documented as of this encounter Care Teams Bus Aide Relationship Specialty Start Date End Date Kerry Blackwell, CHRIS-BIG DATA SOFTWARE ENGINEER [address] [place] [address] PCP - General Family Medicine 03/15/25 documented as of this encounter
--- OUTSIDE RECORDS SUMMARY | 2025-03-25 09:09 | XMS_ITS | Encounter Summary ---
Author Organization [employer] tem Address [id number] [address] [place] [address] Care Team Providers Care Meter Engineer Name Role Phone Kerry Blackwell TAXATION ECONOMIST-BOTTLE PACKER Primary Care Provider + Reason for Visit * Reason Comments Med Refill Encounter Details Date Type Department Care Team (Late Contact Info) Description 08/10/2022 Refill [facility] Internal Medicine - Family Medicine [address] [place] [phone] Shirlene Finn, TAXATION ECONOMIST-SPEECH AND LANGUAGE SPECIALIST [address] [place], [place] [phone] Chronic neck and back pain Social History [...] Upcoming Encounters Date Type Department Care Team ([facility] Contact Info) Description 07/01/2025 8:40 AM EDT Office Visit [facility] - Family Medicine [address] [place] [address] Kerry Blackwell, TAXATION ECONOMIST-BOTTLE PACKER [address] [place] [address] documented as of this encounter Visit Diagnoses Diagnosis Chronic neck and back pain documented in this encounter Care Teams Meter Engineer Relationship Specialty Start Date End Date Kerry Blackwell APRN-BOTTLE PACKER [address] [place] [address] PCP - General Family Medicine 03/15/25 documented as of this encounter
--- OUTSIDE RECORDS SUMMARY | 2025-03-25 09:09 | XMS_ITS | Encounter Summary ---
Author Organization [facility] tem Address [facility][id number] [address] [place] [address] Care Team Providers Care Rehabilitation Program Coordinator Name Role Phone RosalvaKerry APRN-[facility] Primary Care Provider + Encounter Details Date Type Department Care Team (Late st Contact Info) Description 10/31/2023 Telephone [facility] - Family Medicine [address] [place] [address] Shirlene Finn, CHRIS-HEAD OF STRATEGY [address] [place], [place] [phone] Social History Tobacco Use Types Packs/Day Years [...] encounter Miscellaneous Notes * Telephone Encounter - Candace Hernández - 10/31/2023 10:01 AM EST Patient was wondering if you would be able to give her a RX for a parking placard documented in this encounter Plan of Treatment Upcoming Encounters Date Type Department Care Team (Late st Contact Info) Description 07/01/2025 8:40 AM EDT Office Visit [facility] - Family Medicine [address] [place] [address] Kerry Blackwell, TUMBLER OPERATOR-TRACK PRODUCTION ENGINEER [address] [place] [address] documented as of this encounter Visit Diagnoses Not on filedocumented in this encounter Additional Health Concerns Assessment Noted Time PHQ-9 Depression Total Score: 0 10/31/19 24 8:54 AM EST documented as of this encounter Care Teams Rehabilitation Program Coordinator Relationship Specialty Start Date End Date Kerry Blackwell, TUMBLER OPERATOR-TRACK PRODUCTION ENGINEER [address] [place] [address] PCP - General Family Medicine 03/15/25 documented as of this encounter
--- OUTSIDE RECORDS SUMMARY | 2025-03-25 09:09 | XMS_ITS | Encounter Summary ---
Author Organization [employer] tem Address [facility]-[id number] [address] [place] [address] Care Team Providers Care Manufacturing Scheduler Name Role Phone Kerry Blackwell APRN-CHILD CARE DIRECTOR Primary Care Provider + Reason for Visit * Reason Comments Med Refill Encounter Details Date Type Department Care Team (Late Contact Info) Description 02/05/2023 Refill [facility] - Family Medicine [address] [place] [address] Shirlene Finn, CHRIS-BAKER BREAD [address] [place], [place] [phone] Chronic neck and back pain Social History [...] Medicine - Family Medicine [address] [place] [phone] Kerry Blackwell, HANDBAG OPERATOR-CHILD CARE DIRECTOR [address] [place]ár[place] [address] documented as of this encounter Visit Diagnoses Diagnosis Chronic neck and back pain documented in this encounter Additional Health Concerns Assessment Noted Time PHQ-9 Depression Total Score: 0 12/25/19 23 8:09 AM EDT documented as of this encounter Care Teams Manufacturing Scheduler Relationship Specialty Start Date End Date Kerry Blackwell, HANDBAG OPERATOR-CHILD CARE DIRECTOR [address] [place] [address] PCP - General Family Medicine 03/15/25 documented as of this encounter
--- OUTSIDE RECORDS SUMMARY | 2025-03-25 09:09 | XMS_ITS | Encounter Summary ---
Author Organization [facility] tem Address [facility] [place]-[id number] [address] [place] [address] Care Team Providers Care Office Inspector Name Role Phone Kerry Blackwell APRN-SAND MIXER OPERATOR Primary Care Provider + Reason for Visit * Reason Comments Med Refill Encounter Details Date Type Department Care Team (Late Contact Info) Description 12/06/2022 Refill [facility] Internal Medicine - Family Medicine [address] [place] [id number] Shirlene Finn, CHRIS-SENIOR BENEFITS ANALYST [address] [place], [place] [id number] Social History Tobacco Use Types Packs/Day Years [...] Medicine - Family Medicine [address] [place] [phone] Kerry Blackwell APRN-SAND MIXER OPERATOR [address] [place] [address] documented as of this encounter Visit Diagnoses Not on filedocumented in this encounter Additional Health Concerns Assessment Noted Time PHQ-9 Depression Total Score: 0 09/24/19 23 8:02 AM EST documented as of this encounter Care Teams Office Inspector Relationship Specialty Start Date End Date Kerry Blackwell APRN-SAND MIXER OPERATOR [address] [place] [address] PCP - General Family Medicine 03/15/25 documented as of this encounter
--- OUTSIDE RECORDS SUMMARY | 2025-03-25 09:09 | XMS_ITS | Encounter Summary ---
Author Organization [facility] tem Address [facility] [id number] [address] [place] [address] Care Team Providers Care Tightening Machine Operator Name Role Phone Rosalva Kerry Valenzuela APRN-[facility] Primary Care Provider + Encounter Details Date Type Department Care Team (Late st Contact Info) Description 11/20/2023 Telephone [facility] Internal Medicine - Family Medicine [address] [place] [phone] Chana Cruz CMA Social History Tobacco Use Types Packs/Day [...] encounter Miscellaneous Notes * Telephone Encounter - Chana Cruz CMA - 11/20/2023 5:15 PM EST Patient is due for her Cologard documented in this encounter Plan of Treatment Upcoming Encounters Date Type Department Care Team (Late st Contact Info) Description 07/01/2025 8:40 AM EDT Office Visit [facility] Internal Medicine - Family Medicine [address] [place] [address] Kerry Blackwell APRN-AUTOMATIC BEADING LATHE OPERATOR [address] [place] [address] documented as of this encounter Visit Diagnoses Not on filedocumented in this encounter Additional Health Concerns Assessment Noted Time PHQ-9 Depression Total Score: 0 10/31/19 8:54 AM EST documented as of this encounter Care Teams Tightening Machine Operator Relationship Specialty Start Date End Date Kerry Blackwell APRN-AUTOMATIC BEADING LATHE OPERATOR [address] [place] [address] PCP - General Family Medicine 03/15/25 documented as of this encounter
--- OUTSIDE RECORDS SUMMARY | 2025-03-25 09:09 | XMS_ITS | Clinical Summary ---
Author Organization [facility] Address [id number] [address] [place] [address] Care Team Providers Care Museum Service Scheduler Name Role Phone Kerry Blackwell APRN-VP ANCILLARY Primary Care Provider + Allergies Active Allergy Reactions Criticality Noted Date Comments Moxifloxacin Hives,Angioedema High 01/31/2022 Medications estradioL (CLIMARA) 0.05 mg/[address] 1 patch on the skin once a week. 4 patch 11 4 Active fluticasone propionate (FLONASE) 50 mcg/actuation nasal sprayIndication s:Allergic rhinitis due to pollen, unspecified seasonality Administer 2 sprays into each nostril in the morning. 48 g 3 4 Active cholecalciferol , vitamin D3, 2,000 units capsule Take 1 capsule (2,000 Units total) by mouth in the morning. Active ascorbic acid-elderberry fruit (AIRBORNE, ELDERBERRY,) 100-50 mg tablet,chewable Chew and swallow. Active qwtnlnog-ojsj-G A-calcium &mins (THERAGRAN-M) 9 mg iron-400 mcg tablet Take 1 tablet by mouth in the morning. Active spironolactone (ALDACTONE) 25 mg tabletIndicatio ns:Rosacea Take 1 tablet (25 mg total) by mouth every morning. 90 tablet 1 5 Active cyclobenzaprine (FLEXERIL) 10 mg tabletIndicatio ns:Chronic bilateral low back pain without sciatica TAKE 1 TABLET BY MOUTH TWICE DAILY NEEDED for muscle spasms 150 tablet 1 5 Active butalbital-acet ynwill-qhk-gtd (FIORICET WITH CODEINE) [id number] mg per capsuleIndicati ons:Chronic neck and back pain Take 1 capsule by mouth every 6 (six) hours as needed for headaches. 60 capsule 2 5 Active meclizine (ANTIVERT) 25 mg tabletIndicatio ns:Vertigo Take 1 tablet (25 mg total) by mouth daily as needed for dizziness. 90 tablet 1 5 Active FLUoxetine (PROzac) 20 mg capsuleIndicati ons:Generalized anxiety disorder Take 1 capsule (20 mg total) by mouth in the morning. 90 capsule 1 5 Active meclizine (ANTIVERT) 25 mg tabletIndicatio ns:Vertigo Take 1 tablet (25 mg total) by mouth daily as needed for dizziness. 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 Looks like median arcuate ligament compression however she does not have any symptoms from it. Plan expectant management with risk factors modification and follow up as needed Diastasis recti 03/04/2025 Assessment & Plan (03/04/2025 1:58 PM EDT): Asymptomatic she has had questions about it she was concerned that this is a hernia or mass. 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/26/2022 Primary malignant neoplasm of vocal cord 022 Neuropathy 07/29/2017 Encounters Date Type Department Care Team Description 03/17/2025 Refill [facility] [address] [place] [address] Alessandra Santa CMA Vertigo; Generalized anxiety disorder 03/04/2025 1:50 PM EDT [facility] [place] [address] Fariba Echeverria MD Celiac artery stenosis (Primary Dx); Atherosclerosis of celiac artery; Diastasis recti 03/03/2025 Travel 02/18/2025 Refill [facility] [address] [place] [address] Eugenia Goddard, PROFESSOR OF BUSINESS-VP ANCILLARY Chronic neck and back pain 02/10/2025 Orders Only [facility] [address] [place] [address] Roxane Gardner, PROFESSOR OF BUSINESS-VP ANCILLARY Atherosclerosis of celiac artery (Primary Dx) 02/09/2025 Refill [facility] [address] [place] [address] Eugenia Goddard, PROFESSOR OF BUSINESS-VP ANCILLARY Chronic bilateral low back pain without sciatica 02/05/2025 Telephone [facility] [address] [place] [address] Coleen Menjivar CMA 02/03/2025 9:48 AM EDT - 02/03/2025 11:59 PM EDT Hospital Encounter [facility] [address] [place] [phone] Paul Mast, Abdominal swelling, generalized Discharge Disposition: Home 02/03/2025 9:30 AM EDT - 02/03/2025 9:47 AM EDT Hospital Encounter [facility]A [facility] [address] [place] [phone] Encounter for screening for osteoporosis; Asymptomatic menopausal state Discharge Disposition: Home 02/03/2025 Travel 01/21/2025 Orders Only [facility] [address] [place] [address] Chana Cruz CMA Encounter for screening mammogram for malignant neoplasm of breast 01/18/2025 Orders Only [facility] [address] [place] [address] Ref Prov, Not In System 01/06/2025 Orders Only [facility] [address] [phone] Coleen Menjivar CMA Abdominal swelling, generalized (Primary Dx) 01/05/2025 Telephone [facility] [address] [place] [phone] Gail Wise CMA 01/01/2025 9:52 AM EDT - 01/01/2025 11:59 PM EDT Hospital Encounter [facility] [address] [place] [phone] Tachycardia; Abnormal EKG Discharge Disposition: Home 01/01/2025 Travel 12/30/2024 9:00 AM EDT Clinical Support [facility] [address] [place] [address] Eugenia Goddard APRN-YUKI Tachycardia (Primary Dx); Abnormal EKG 12/30/2024 8:45 AM EDT Office Visit [facility] General [facility] [address] [place] [phone] Paul Mast DO Abdominal swelling, generalized (Primary Dx); Umbilical hernia with obstruction, without gangrene; Abdominal swelling; Diastasis recti; Cardiac arrhythmia, unspecified cardiac arrhythmia type 12/28/2024 Travel 12/24/2024 6:34 PM EDT - 12/24/2024 11:59 PM EDT Hospital Encounter [facility] [address] [facility] [address] [place] [address] Mixed hyperlipidemia; Screening for diabetes mellitus (DM); Primary malignant neoplasm of vocal cord (CMS-HCC); Need for hepatitis C screening test Discharge Disposition: Home 12/24/2024 8:20 AM EDT Office Visit [facility] [address] [place] [phone] Eugenia Goddard, PROFESSOR OF BUSINESS-VP ANCILLARY Welcome to Medicare preventive visit (Primary Dx); Mixed hyperlipidemia; Screening for diabetes mellitus (DM); Primary malignant neoplasm of vocal cord (CMS-HCC); Need for hepatitis C screening test; Special screening for malignant neoplasm of colon; Encounter for screening mammogram for malignant neoplasm of breast; Encounter for screening for osteoporosis; Asymptomatic menopausal state; Chronic bilateral low back pain without sciatica; Rosacea; Umbilical hernia with obstruction, without gangrene 12/24/2024 Travel from Last 3 Months Immunizations Immunization Administration Dates Next Due DTaP 09/15/2012 Influenza (IM) Preservative Free 08/13/2016,07/17 Influenza, Injectable, Mdck, Preservative Free, Quad 06/17/2017 Influenza, Injectable, Quadrivalent 06/16/2018 Influenza, Injectable, quadr ivalent (PF) 07/08/2023,09/02/2022,07/19/2021,05/18,05/12/2019 Influenza, Unspecified 09/02/2022 Pneumococcal Conjugate 13-Valent 08/01/2015 Pneumococcal Polysaccharide 07/13/2011 Tdap 06/17/2017 Varicella Zoster Immune Globulin 05/12/2019 Zoster Vaccine Recombinant 05/12/2019,03/10/2019 Family History Medical History Relation Name Comments Lung cancer Mother Luis Carlos Diabetes Paternal Grandmother Relation Name Status Comments Mother Luis Carlos Paternal Grandmother Sister Alive Son Alive Social History Tobacco Use Types Packs/Day Years Used Date Smoking Tobacco: Former Smokeless Tobacco: Never Tobacco Cessation:Counseling Given: Not Answered Alcohol Use Standard Drinks/Week Comments Not Currently [...] Sign Reading Time Taken Comments Blood Pressure 126/86 03/04/2025 1:30 PM EDT Pulse 115 12/30/2024 9:21 AM EDT Temperature 36.6 C (97.8 F) 12/30/2024 9:21 AM EDT Respiratory Rate 18 12/30/2024 9:21 AM EDT Oxygen Saturation 98% 12/30/2024 9:21 AM EDT Inhaled Oxygen Concentration - - Weight 65.8 kg (145 lb) 03/04/2025 1:30 PM EDT Height 170.2 cm (5' 7 ) 03/04/2025 1:30 PM EDT Body Mass Index 22.71 03/04/2025 1:30 PM EDT Plan of Treatment Upcoming Encounters Date Type Department Care Team (Late st Contact Info) Description 07/01/2025 8:40 AM EDT Office Visit [facility] [address] [place] [address] Kerry Blackwell, PROFESSOR OF BUSINESS-VP ANCILLARY [address] [facility] [place] [address] Health Maintenance Due Date Last Done Comments Influenza Vaccine 05/17/2025 07/08/2023, , 09/02/2022, Additional history exists Depression Screening 12/24/2025 12/24/2024 Fall Risk Screening 12/24/2025 12/24/2024 Medicare Annual Wellness Visit 12/24/2025 12/24/2024 Mammogram 01/21/2026 01/21/2025, 11/0 04/2023, 07/19/2022 Adult BMI Screening 03/04/2026 03/04/2025 Tobacco Screening 03/04/2026 03/04/2025 DTaP,Tdap and Td Vaccines (3 - Td or Tdap) 06/17/2027 06/17/2017, 09/15/2012 Zoster (Shingles) Vaccine Completed 05/12/2019, COVID-19 Vaccine Discontinued 09/14/2021, , 11/23/2020 Medical Devices Not on file Procedures Procedure Name Priority Date/Time Associated Diagnosis Comments DEXA SCAN CENTRAL SKELETAL Routine 02/03/2025 11:14 AM EDT Encounter for screening for osteoporosis Asymptomatic menopausal state CT ABDOMEN AND PELVIS W CONT Routine 02/03/2025 10:52 AM EDT Abdominal swelling, generalized MAMM SCREENING BILATERAL W CAD Routine 01/21/2025 7:13 AM EDT Encounter for screening mammogram for malignant neoplasm of breast MAMMOGRAPHY BILATERAL Routine 01/06/2025 10:46 AM EDT COLOGUARD NON-PROMEDICA Routine 01/05/2025 8:00 AM EDT Special screening for malignant neoplasm of colon ECHO COMPLETE WO CONTRAST STAT 01/01/2025 10:35 AM EDT Tachycardia Abnormal EKG POCT EKG Routine 12/30/2024 9:24 AM EDT Tachycardia HEPATITIS C(HCV) ANTIBODY W/REFLEX TO PCR Routine 12/24/2024 8:41 AM EDT Need for hepatitis C screening test COMPREHENSIVE METABOLIC PANEL Routine 12/24/2024 8:41 AM EDT Primary malignant neoplasm of vocal cord (CMS-HCC) CBC WITH AUTO DIFFERENTIAL Routine 12/24/2024 8:41 AM EDT Mixed hyperlipidemia HEMOGLOBIN A1C Routine 12/24/2024 8:41 AM EDT Screening for diabetes mellitus (DM) LIPID PROFILE Routine 12/24/2024 8:41 AM EDT Mixed hyperlipidemia from Last 3 Months Results * Dexa scan central skeletal (02/03/2025 11:14 AM EDT) Anatomical Region Laterality Modality N/A DXA Scan 02/04/2025 2:10 PM EDT Narrative 02/04/2025 2:11 PM EDT CLINICAL INFORMATION: Encounter for screening for osteoporosis; Asymptomatic menopausal state. , Post menopausal, TECHNIQUE: Dual X-ray Absorptiometry (DXA) was performed. COMPARISON: No relevant prior studies available. FINDINGS: LUMBAR SPINE (L1-L4): BMD is 1.295 gm/cm2. T-score is 0.8. LEFT FEMORAL NECK: BMD is 0.838 gm/cm2. T-score is -1.4. LEFT TOTAL FEMUR: BMD is 0.876 gm/cm2. T-score is -1.0. RIGHT FEMORAL NECK: BMD is 0.892 gm/cm2. T-score is -1.1. RIGHT TOTAL FEMUR: BMD is 0.910 gm/cm2. T-score is -0.8. The estimated 10-year probability for a major osteoporotic fracture (utilizing FRAX) is 12.1% and for a hip fracture is 2.5%. IMPRESSION: The exam is considered to be osteopenic by the National Osteoporosis Foundation guidelines. Recommend consideration for initiation of therapy. WHO CLASSIFICATION: Normal: T-score -1.0 or above Osteopenia: T-score -1.1 to < 2.5 Osteoporosis: T-score -2.5 or lower Secondary causes of bone loss should be evaluated if clinically indicated since the etiology of low BMD cannot be determined by BMD measurement alone. The current National Osteoporosis Foundation guide recommends treating patients with FRAX ten year risk scores of greater than or equal to 3% for hip fracture or greater than or equal to 20% for major osteoporotic fracture, to reduce their fracture risk. Finalized by Braden Viera MD on 02/04/2025 2:11 PM Procedure Note Braden Viera MD - 02/04/2025 CLINICAL INFORMATION: Encounter for screening for osteoporosis; Asymptomatic menopausal state. ,Post menopausal, TECHNIQUE: Dual X-ray Absorptiometry (DXA) was performed. COMPARISON: No relevant prior studies available. FINDINGS: LUMBAR SPINE (L1-L4): BMD is 1.295 gm/cm2. T-score is 0.8. LEFT FEMORAL NECK: BMD is 0.838 gm/cm2. T-score is -1.4. LEFT TOTAL FEMUR: BMD is 0.876 gm/cm2. T-score is -1.0. RIGHT FEMORAL NECK: BMD is 0.892 gm/cm2. T-score is -1.1. RIGHT TOTAL FEMUR: BMD is 0.910 gm/cm2. T-score is -0.8. The estimated 10-year probability for a major osteoporotic fracture(utilizing FRAX) is 12.1% and for a hip fracture is 2.5%. IMPRESSION: The exam is considered to be osteopenic by the National OsteoporosisFoundation guidelines. Recommend consideration for initiation oftherapy. WHO CLASSIFICATION: Normal: T-score -1.0 or above Osteopenia: T-score -1.1 to < 2.5 Osteoporosis: T-score -2.5 or lower Secondary causes of bone loss should be evaluated if clinically indicatedsince the etiology of low BMD cannot be determined by BMD measurementalone. The current National Osteoporosis Foundation guide recommends treatingpatients with FRAX ten year risk scores of greater than or equal to 3% forhip fracture or greater than or equal to 20% for major osteoporoticfracture, to reduce their fracture risk. Finalized by Braden Viera MD on 02/04/2025 2:11 PM Eugenia Goddard APRN-[facility] DXA ORDERABLES F inal Result * CT abdomen and pelvis with contrast (02/03/2025 10:52 AM EDT) Anatomical Region Laterality Modality Body, Abdomen, Body Covera N/A Compu daniela Tomography 02/05/2025 8:25 AM EDT Narrative 02/05/2025 8:27 AM EDT CLINICAL INFORMATION: Abdominal swelling, generalized . Pain. TECHNIQUE: CT ABDOMEN AND PELVIS W CONT CT images of the abdomen and pelvis are obtained. Intravenous contrast was administered. There is no free intraperitoneal fluid or evidence of pneumoperitoneum. Bowel is nondistended. No significant colonic wall thickening or pericolonic inflammatory stranding. The liver, spleen, pancreas, and adrenals are unremarkable. Patient is postcholecystectomy. Mildly prominent common bile duct is likely reservoir effect. Kidneys enhance homogeneously. Aortoiliac and mesenteric atherosclerotic changes appreciated. Suspect stenosis at the origin of the celiac. Osseous structures grossly intact. IMPRESSION: No acute abdominal findings. All CT scans at this facility use dose modulation, iterative reconstruction, and/or weight based dosing when appropriate to reduce radiation dose to as low as reasonably achievable. Finalized by Giovany Monk MD on 02/05/2025 8:27 AM Procedure Note Giovany Monk MD - 02/05/2025 CLINICAL INFORMATION: Abdominal swelling, generalized . Pain. TECHNIQUE: CT ABDOMEN AND PELVIS W CONT CT images of the abdomen and pelvis are obtained. Intravenous contrast wasadministered. There is no free intraperitoneal fluid or evidence ofpneumoperitoneum. Bowel is nondistended. No significant colonic wallthickening or pericolonic inflammatory stranding. The liver, spleen,pancreas, and adrenals are unremarkable. Patient is postcholecystectomy. Mildlyprominent common bile duct is likely reservoir effect. Kidneys enhancehomogeneously. Aortoiliac and mesenteric atherosclerotic changesappreciated. Suspect stenosis at the origin of the celiac. Osseousstructures grossly intact. IMPRESSION: No acute abdominal findings. All CT scans at this facility use dose modulation, iterativereconstruction, and/or weight based dosing when appropriate to reduceradiation dose to as low as reasonably achievable. Finalized by Giovany Monk MD on 02/05/2025 8:27 AM us Paul Mast DO G CT ORDERABLES Final Res ult * Mammography screening bilateral with CAD (01/21/2025 7:13 AM EDT) Anatomical Region Laterality Modality Breast Bilateral Mammography us Eugenia Goddard PROFESSOR OF BUSINESS-VP ANCILLARY IMG MAMMOGRAPHY ORDE RABLES Final Result * MAMMOGRAPHY BILATERAL (01/06/2025 10:46 AM EDT) us Not In System Ref Prov [facility] Final Result MANUALLY TRANSCRIBED RESULTS * Cologuard Non-[facility] (01/05/2025 8:00 AM EDT) EXTERNAL COLOGUARD Negative Negative 01/09/2025 7:15 PM EDT [facility] (CLIA #:[id number]) Comment: The Cologuard Plus (TM) test was performed on this specimen. NEGATIVE TEST RESULT. A negative (normal) Cologuard Plus result means the patient has a [id number] chance of having colorectal cancer (CRC) or advanced precancer (polyps or lesions that could become cancer). Negative is the normal value (reference range) for this assay. Guidelines recommend screening again 3 years after a negative Cologuard Plus result. Continued screening increases the chance of finding CRC early or preventing it entirely. A clinical validation study showed the Cologuard Plus test is effective at ruling out CRC. Out of every 10,000 patients testing negative, approximately 2 will be falsely reassured that they do not have CRC, and out of every 100 patients testing negative, approximately 7 patients will be falsely reassured they do not have advanced precancer. TEST DESCRIPTION: The Cologuard Plus test is a multi-target stool DNA (mt-sDNA) test that analyzes DNA and hemoglobin biomarkers in stool. It uses a proprietary algorithm to qualitatively detect CRC and advanced precancer. It is FDA-approved and indicated for use in adults 45 years or older at average risk for CRC. A positive (abnormal) result should be followed by a colonoscopy. Patients with a negative (normal) result should screen again in 3 years. False positive and false negative results may occur. The USPSTF recommends the Cologuard test as a CRC screening option. Their modeling estimates that screening with the test every 3 years from ages 45-85 could prevent up to 73% of CRC and avoid up to 85% of CRC deaths. A 18,911-patient clinical trial found the Cologuard Plus test effectively detects CRC and precancer. The study found the test was 95% sensitive for CRC, 43% sensitive for advanced precancer, and had a 91% specificity (Cologuard Plus Clinician Brochure. [employer]. [place], [place].). Visit [email or web address] for more test information, references, warnings, and precautions. Stool specimen (specimen) Rectum structure / Unknown 01/05/2025 8:00 AM EDT 01/06/2025 12:19 PM EDT us Eugenia Goddard PROFESSOR OF BUSINESS-VP ANCILLARY LAB ORDERABLES Avril saenz Result [facility] (CLIA #:[id number]) [address] [place] [address], * Echo complete W/O contrast (01/01/2025 10:35 AM EDT) LVOT stroke volume 50.18 ml [facility] LV Systolic Volume 30.90 mL [facility] EF 57 % [facility] FS 30 28 - 44 % [employer] LV Diastolic Volume 71.50 mL [facility] LVIDd 4.30 cm [facility] LVIDs 3.00 cm [facility] IVS 0.90 0.6 - 1.1 cm [facility]A PW 0.80 0.6 - 1.1 cm [facility] LVOT diameter 1.90 cm [facility] TDI 7.94 cm/s [facility] MV TDI E' (medial) 6.96 cm/s [facility]A E/A ratio 0.64 [facility]A E wave deceleration time 128.00 msec [facility] MV Peak E Chaz 63.40 cm/s [facility] MV Peak A Chaz 99.40 cm/s [facility] LA size 2.60 cm [facility] Aortic root 3.70 cm [facility] RV diastolic dimension (basal) 31.0 mm [facility] TAPSE 2.38 cm [facility] AV peak chaz 120.00 cm/s [facility] LVOT peak chaz 0.84 m/s [facility] AV VTI 21.40 cm [facility] LVOT peak VTI 17.70 cm [facility] AV mean gradient 3.00 mmHg [facility] AV peak gradient 5.76 mmHg [facility] AV valve area 2.34 [facility] Valve area - Index 1.3 [facility] MV pressure 1/2 time 37.00 ms [facility] MV valve area p 1/2 method 5.95 cm2 [facility] TR Peak Chaz 2.1 m/s [facility] TR peak gradient 19.00 mmHg [facility] LV ESV A4C 18.70 mL [facility] LV RWT 2D 37.21 [facility] Echo EF Estimated 57 % [facility] AV Velocity Ratio 0.83 [facility] Left Ventricle Mass 114.51802 [id number] 2 g XCEL[facility]A Interventricular Septum Diastolic Thickness by 2D 9 cm XC[facility]A TASV 11.5 cm/s XCEL[facility]A RA 2D Volume 12.1 mL/m2 XCEL[facility]A Est. RA pressure 3 mmHg [facility] RA area 10.6 cm2 [facility] RV Peak Systolic Pressure 22 mmHg XCEL[facility]A Anatomical Region Laterality Modality Chest N/A Ultrasound Narrative 01/01/2025 11:27 PM EDT Left Ventricle normal in size and systolic function with an ejection fraction of 55-60%. Normal wall thickness and no segmental wall motion abnormalities. Tricuspid regurgitation, trace to mild. Mitral regurgitation, trace to mild Normal atria Left Ventricle Left ventricle appears normal in size. Wall thickness is normal. Systolic function is normal with an ejection fraction of 55-60%. No obvious regional wall motion abnormalities. Normal diastolic function is present. Lateral E' is 7.94 cm/s. Medial E' is 6.96 cm/s. Right Ventricle Right ventricular size appears normal. The right ventricular basal diameter is 31.0 mm. Systolic function is normal. Left Atrium Left atrium is normal in size. Right Atrium Right atrium is normal in size. The right atrial area is 10.6 cm2. IVC/SVC IVC appears normal. Mitral Valve The leaflets are mildly thickened. There is trace to mild regurgitation. There is no evidence of mitral valve stenosis. Tricuspid Valve Tricuspid valve appears to be normal. There is trace to mild regurgitation. There is no evidence of tricuspid valve stenosis. RVSP calculated at 22 mmHg. RVSP is based on RA pressure of 3 mmHg. Aortic Valve The aortic valve is trileaflet. There is no regurgitation or stenosis. Pulmonic Valve The pulmonic valve was not well visualized. There is trace regurgitation. There is no evidence of pulmonic valve stenosis. Ascending Aorta The aortic root is normal in size. Pericardium There is no pericardial effusion. Study Details A complete echo was performed using complete 2D, color flow Doppler and spectral Doppler. Overall the study quality was adequate. Wall Scoring Baseline Score Index: 1.00 The left ventricular wall motion is normal. us Eugenia Kalpesh Goddard PROFESSOR OF BUSINESS-VP ANCILLARY CV ECHO ORDERABLES F inal Result * (ABNORMAL) CBC auto differential (12/24/2024 8:41 AM EDT) White Blood Cells 6.2 4.0 - 11.0 X10E9/L 12/24[facility]2024 [facility] RBC count 4.54 3.80 - 5.20 X10E12/L 12/24/2024 7:04 PM [facility] Hemoglobin 14.3 11.7 - 15.5 g/dL 12/24/2024 7:04 PM [facility] Hematocrit 43.2 35 - 47 % 12/24/2024 7:04 PM [facility] MCV 95 80 - 100 fL 12/24/2024 7:04 PM [facility] MCH 31.6 27 - 34 pg 12/24/2024 7:04 PM [facility] MCHC 33.2 32 - 36 g/dL 12/24/2024 7:04 PM [facility] RDW 12.6 11.5 - 15.0 % 12/24/2024 7:04 PM [facility] Platelets 286 150 - 450 X10E9/L 12/24/2024 7:04 PM [facility] MPV 6.9(L) 7 - 12 fL 12/24/2024 7:04 PM [facility] % neutrophils 72.5 % 12/24/2024 7:04 PM [facility] % lymphocytes 16.2 % 12/24/2024 7:04 PM [facility] % monocytes 8.0 % 12/24/2024 7:04 PM [facility] % eosinophils 2.6 % 12/24/2024 7:04 PM EDT [facility] % Basophils 0.7 % 12/24/2024 7:04 PM EDT [facility] Neutrophils Absolute (A) 4.5 1.5 - 6.6 X10E9/L 12/24/2024 7:04 PM EDT [facility] Lymphocytes Absolute 1.0 1.0 - 3.5 X10E9/L 12/24/2024 7:04 PM EDT [facility] Monocytes Absolute 0.5 0 - 0.9 X10E9/L 12/24/2024 7:04 PM EDT [facility] Eosinophils Absolute 0.2 0.0 - 0.4 X10E9/L 12/24/2024 7:04 PM EDT [facility] Basophils Absolute 0.0 0.0 - 0.2 X10E9/L 12/24/2024 7:04 PM EDT [facility] Blood / Unknown 12/24/2024 8 :41 AM EDT 12/24/2024 6:35 PM EDT us Eugenia Goddard PROFESSOR OF BUSINESS-VP ANCILL[facility] LAB BLOOD ORDERABLES Final Result [facility] [address] [facility] [facility] [address] [place] [address] * Hepatitis C(HCV) Ab w/ Reflex to PCR (12/24/2024 8:41 AM EDT) Anti HCV w/ PCR reflex Non-Reacti ve Non-Reacti ve^Non-Marivel ctive 12/24/2024 7:48 PM EDT [facility] Comment: NEW TEST METHOD NOTE If recent infection suspected, recommend repeat testing (>2 months). Uaxeay-he-ibguuq ratio is <1.00. Serum / Unknown 12/24/2024 8 :41 AM EDT 12/24/2024 6:35 PM EDT us Eugenia J Goddard PROFESSOR OF BUSINESS-[facility] BLOOD ORDERABLES Final Result [facility] [address] [facility], [address] [place] [address] * Hemoglobin A1c (12/24/2024 8:41 AM EDT) Pathologist [facility] Hemoglobin A1C 5.4 4.4 - 5.6 % 12/24/2024 7:43 PM EDT [facility] Comment: NOTE ADA Guidelines Result HgbA1c Normal : less than 5.7 % Prediabetes : 5.7 % to 6.4 % Diabetes : > 6.4 % Use with caution in patients with abnormal hemoglobin variants as the half-life of red blood cells and in vivo glycation rates are affected. Average glucose 108 mg/dL 7:43 PM EDT [facility] PLASMA 12/24/2024 8:41 AM EDT 12/24/2024 6:35 PM EDT Eugenia Goddard APRN-[facility] BLOOD ORDERABLES Final Result [facility] [address] [facility] [place] [address] * (ABNORMAL) Lipid profile (12/24/2024 8:41 AM EDT) [facility] Signature Cholesterol 216(H) 150 - 200 mg/dL 12/24/2024 7:14 PM EDT [facility] Triglycerides 165(H) 27 - 150 mg/dL 12/24/2024 7:14 PM EDT [facility] HDL Cholesterol 54 >39 mg/dL 7:14 PM EDT [facility] Comment: HDL <40 mg/dL - High Risk HDL > or = 40mg/dL- Desirable HDL >60 mg/dL - Negative Risk VLDL 33(H) 0 - 30 mg/dL 12/24/2024 7:14 PM EDT [facility] LDL (calc) 129 <130 mg/dL 12/24/2024 7:14 PM EDT [facility] Comment: LDL <100 mg/dL - Desirable LDL >160 mg/dL - High Risk Cholesterol:HDL Ratio 4.0 1.0 - 5.0 12/24/2024 7:14 PM EDT [facility] Blood (PLASMA) 12/24/2024 8: 41 AM EDT 12/24/2024 6:35 PM EDT us Eugenia Goddard APRN-[facility] BLOOD ORDERABLES Final Result [facility] [address] [facility] [place] [address] * Comprehensive metabolic panel (12/24/2024 8:41 AM EDT) Sodium 138 134 - 146 mmol/L 12/24/2024 7:14 PM EDT [facility] Potassium, Bld 4.4 3.5 - 5.0 mmol/L 12/24/2024 7:14 PM EDT [facility] Chloride 101 98 - 109 mmol/L 12/24/2024 7:14 PM EDT [facility] CO2 29 22 - 32 mmol/L 12/24/2024 7:14 PM EDT [facility] Anion gap 8 5 - 15 mmol/L 12/24/2024 7:14 PM EDT [facility] BUN 10 5 - 27 mg/dL 12/24/2024 7:14 PM EDT [facility] Creatinine 0.68 0.40 - 1.00 mg/dL 12/24/2024 7:14 PM EDT [facility] Comment:METHOD TRACEABLE TO IDMS STANDARD Glucose 83 65 - 99 mg/dL 12/24/2024 7:14 PM EDT [facility] Calcium 10.0 8.5 - 10.5 mg/dL 12/24/2024 7:14 PM EDT [facility] Total Protein 7.8 6.0 - 8.0 g/dL 12/24/2024 7:14 PM EDT [facility] Albumin 4.9 3.2 - 5.3 g/dL 12/24/2024 7:14 PM EDT [facility] Alkaline Phosphatase 61 39 - 130 U/L 12/24/2024 7:14 PM EDT [facility] AST 23 0 - 41 U/L 12/24/2024 7:14 PM EDT [facility] ALT 26 0 - 31 U/L 12/24/2024 7:14 PM EDT [facility] Total bilirubin 0.4 0.3 - 1.2 mg/dL 12/24/2024 7:14 PM EDT [facility] eGFR (CKD-EPI)non-rac e dependent >90 >59 ml/min/1.7 3sq.m 12/24/2024 7:14 PM EDT [facility] Comment: Reported eGFR is based on the CKD-EPI 2020 equation that does not use a race coefficient. Blood (PLASMA) 12/24/2024 8: 41 AM EDT 12/24/2024 6:35 PM EDT us Eugenia Goddard PROFESSOR OF BUSINESS-VP ANCILLARY LAB BLOOD ORDERABLES Final Result [facility] [address] [place] [address] from Last 3 Months Insurance MEDICARE AET Care Teams Museum Service Scheduler Relationship Specialty Start Date End Date Kerry Blackwell, PROFESSOR OF BUSINESS-VP ANCILLARY [address] [place] [address] PCP - General Family Medicine 03/15/25
--- OUTSIDE RECORDS SUMMARY | 2025-03-25 09:09 | XMS_ITS | Encounter Summary ---
Author Organization [employer] [facility] tem Address [id number] [place] [address] Care Team Providers Care Digital X Ray Service Engineer Name Role Phone Rosalva, Kerry Valenzuela APRN-PATIENT REGISTRATION CLERK Primary Care Provider + Encounter Details Date Type Department Care Team (Late st Contact Info) Description 07/25/2022 Telephone [facility] Internal Medicine - Family Medicine [address] [place] [id number] Chana Cruz CMA Social History Tobacco Use [...] Telephone Encounter - Chana Cruz CMA - 07/25/2022 11:02 AM EST ----- Message from SHAUNA Morse sent at 07/25/2022 8:49 AM EST ----- Regarding: thyroid tests Her thyroid values looked good, no changes in treatment - Shirlene * Telephone Encounter - Chana Cruz CMA - 07/25/2022 11:02 AM EST Spoke with the patient and she understands documented in this encounter Plan of Treatment Upcoming Encounters Date Type Department Care Team (Late st Contact Info) Description 07/01/2025 8:40 AM EDT Office Visit [facility] Internal Medicine - Family Medicine [address] [place] [address] Kerry Blackwell, GM-PATIENT REGISTRATION CLERK [address] [place] [address] documented as of this encounter Visit Diagnoses Not on filedocumented in this encounter Care Teams Digital X Ray Service Engineer Relationship Specialty Start Date End Date Kerry Blackwell, GM-PATIENT REGISTRATION CLERK [address] [place] [address] PCP - General Family Medicine 03/15/25 documented as of this encounter
[2025-03-25 09:58] LABS: Hematocrit 41.0 % (36.0-48.0); Hemoglobin 14.3 g/dL (12.0-16.0); Immature Granulocytes Abs Auto 0.01 10^3/uL (0.00-0.03); Immature Granulocytes Pct Auto 0.2 % (0.0-0.5); Lymphocytes Absolute Auto 1.1 10^3/uL (1.2-3.8); Mean Corpuscular HGB Conc 34.9 g/dL (29.9-35.2); Mean Corpuscular Hemoglobin 32.7 pg (26.7-34.0); Mean Corpuscular Volume 93.8 fL (81.0-99.0); Platelet Count 274 10^3/uL (150-450); Red Blood Count 4.37 10^6/uL (4.20-5.40); White Blood Count 5.5 10^3/uL (4.0-11.0)
== END 2025-03-25 09:08 | disposition home or self-care (01) ==
LOC: LAB 09:07
PROVIDERS: PCP Family Medicine
DX: H02.839 Dermatochalasis of unspecified eye, unspecified eyelid (principal)
CPT/HCPCS: 36415; 85025